=== PATIENT | female | born 1970 | race Caucasian/White ===

== ENCOUNTER → 2017-08-16 | Outpatient (CLI) | payer BC, OTHER, SELFPAY | PROVIDERS: Visit Provider Physician Assistant | DX: L40.0 Psoriasis vulgaris (principal); Z79.899 Other long term (current) drug therapy | CPT/HCPCS: 36415; 80053; 85025 ==

== ENCOUNTER → 2017-08-20 16:43 | Outpatient (CLI) | payer BC, OTHER, SELFPAY | PROVIDERS: PCP Physician Assistant; Visit Provider Physician Assistant | DX: L40.0 Psoriasis vulgaris (principal); Z79.899 Other long term (current) drug therapy ==

== ENCOUNTER → 2017-09-05 15:04 | Outpatient (CLI) | payer BC, SELFPAY ==
--- NOTE | 2017-09-05 | XR_ITS ---
XR ankle LT min 3V HISTORY: ITS.REASON: INJURY LEFT FOOT,ATTN ALONG LEFT ACHILLES TENDON ORDERING PHYSICIAN: NAEEM Woody PATIENT AGE: 46 years COMPARISON: None FINDINGS: No fracture or dislocation. No lytic or blastic change. There is normal mineralization.. The joint spaces are well-preserved. No significant degenerative/arthritic changes. No erosive changes evident. There is a small calcaneal spur. Minimal calcification is present along the plantar surface of the calcaneus unchanged. Enthesophyte is noted at the Achilles insertion. Kager fat pad is preserved IMPRESSION: No acute finding. No change from 8 8 17
--- NOTE | 2017-09-05 15:12 | XR_ITS ---
XR foot LT min 3V HISTORY: Pain following injury ITS.REASON: INJURY OF LEFT FOOT,ATTN LEFT ACHILLES TENDON ORDERING PHYSICIAN: NAEEM Woody PATIENT AGE: 46 years COMPARISON: 03/26/2017 FINDINGS: No fracture or dislocation. No lytic or blastic change. There is normal mineralization.. Minimal hallux valgus. Separate calcific density is present at the base of the fifth metatarsal similar to the previous exam consistent with an accessory center of ossification. Calcaneal spur is present and there is an enthesophyte at the Achilles insertion. The increased density of the Achilles tendon does appear intact. Achilles tendon may be better evaluated with MRI of clinically desired. IMPRESSION: No change with no acute finding
== END ==
PROVIDERS: PCP Physician Assistant; Visit Provider Physician Assistant
DX: S99.912A Unspecified injury of left ankle, initial encounter (principal); S99.922A Unspecified injury of left foot, initial encounter
CPT/HCPCS: 73610; 73630

== ENCOUNTER → 2017-09-18 08:30 | Outpatient (CLI) | payer BC, SELFPAY ==
--- NOTE | 2017-09-18 08:34 | MR_ITS ---
MR ankle LT wo/w con CLINICAL INDICATION: Left ankle pain mainly posterior right Achilles region, recent injury with pain and swelling ORDERING PHYSICIAN: Na Welsh DPM PATIENT AGE: 46 years COMPARISON: Radiograph of 09/05/2017 FINDINGS: There is diffuse edema about the ankle joint anteriorly, medially, and laterally. There is diffuse contrast enhancement of the soft tissues medially, anteriorly, and laterally. No obvious fracture is apparent. There is slight increase T2 signal within the neck of the talus suggesting underlying bone bruise/contusion without obvious fracture. There are mild hypertrophic changes of the distal aspect of the talus medially at the talonavicular joint. The anterior tibiofibular appears discontinuous along the tibial aspect and may be at least partially foreign. The posterior tibiofibular ligament does appear intact. The anterior talofibular ligament is also discontinuous at the fibular region consistent with at least partial tear of the deltoid ligament appears intact. The tendons about the ankle also appear intact. The Achilles tendon has an unremarkable appearance. There is a moderate amount of fluid about the ankle joint both anteriorly and posteriorly. There is fluid also along the medial aspect of the foot at the plantar arch region medially. IMPRESSION: 1. At least partial tear of the anterior tibiofibular and anterior talofibular ligaments. 2. Moderate amount of soft tissue edema both medial and lateral ankle region. This does show some enhancement probably related to inflammatory change. Underlying cellulitis is an additional consideration. 3. Moderate-sized ankle joint effusion with fluid also present along the medial plantar region. 4. Bone bruise of the neck of the talus
== END ==
PROVIDERS: PCP Physician Assistant; Visit Provider Podiatrist
DX: M76.62 Achilles tendinitis, left leg (principal)
CPT/HCPCS: 73223; A9576

== ENCOUNTER → 2017-10-07 12:45 | Outpatient (POV) | payer BC, SELFPAY | PROVIDERS: PCP Physician Assistant; Visit Provider Physician Assistant | DX: Z00.00 Encounter for general adult medical examination without abnormal findings (principal) ==

== ENCOUNTER → 2017-10-14 12:14 | Outpatient (CLI) | payer BC, SELFPAY ==
--- NOTE | 2017-10-14 12:29 | XR_ITS ---
XR chest 2V HISTORY: ITS.REASON: VAPOR INHALE, ORDERING PHYSICIAN: Na Welsh DPM PATIENT AGE: 46 years COMPARISON: None available FINDINGS: The cardiomediastinal silhouette and pulmonary vascularity are within normal limits. There is an azygos fissure is a normal variant.. Calcified hilar lymph node is present on the right with a calcified granuloma in the anterior clear space. No lobar consolidation or collapse. No acute bony abnormalities. IMPRESSION: No acute finding. Old granulomatous disease
[2017-10-14 13:07] LABS: Basophils # 0.1 K/mm3 (0-0.2); Eosinophils # 0.2 K/mm3 (0.0-0.4); Eosinophils % 2.7 % (0.1-12.0); Hematocrit 44.7 % (37.0-47.0); Hemoglobin 14.4 g/dL (12.2-16.2); Lymphocytes # 2.4 K/mm3 (0.7-4.5); Lymphocytes % 35.5 K/mm3 (10-50); Mean Corpuscular HGB Conc 32.2 g/dL (31.8-35.4); Mean Corpuscular Hemoglobin 28.5 pg (27.0-31.2); Mean Corpuscular Volume 88.4 fl (81-99); Mean Platelet Volume 7.5 fl (7.4-10.4); Monocytes # 0.4 K/mm3 (0.1-1.0); Monocytes % 5.3 % (1.7-9.3); Neutrophils # 3.7 K/mm3 (1.8-7.8); Neutrophils % 55.5 % (37.0-80.0); Platelet Count 270 K/mm3 (142-424); Red Blood Count 5.06 M/mm3 (4.20-5.40); Red Cell Distribution Width 13.8 % (11.5-17.5); White Blood Count 6.7 K/mm3 (4.8-10.8)
[2017-10-14 13:17] LABS: INR 0.93 (0.9-1.1)
[2017-10-14 14:28] LABS: HCG Qualitative, Serum Negative (Negative)
[2017-10-14 14:43] LABS: Alanine Aminotransferase 38 U/L (12-78); Albumin Level 4.1 gm/dL (3.4-5.0); Albumin/Globulin Ratio 1.4 (1.1-1.8); Alkaline Phosphatase 59 U/L (46-116); Anion Gap 12.4 mEq/L (5-15); Aspartate Amino Transferase 14 U/L (15-37); Bilirubin,Total 0.8 mg/dL (0.2-1.0); Blood Urea Nitrogen 12 mg/dL (7-18); Calcium 8.8 mg/dL (8.5-10.1); Carbon Dioxide 27 mmol/L (21.0-32.0); Chloride 104 mmol/L (98-107); Creatinine,Serum 0.67 mg/dL (0.55-1.02); Estimated Glomerular Filt Rate 96 ml/min (>60); GFR (African American) 116 ML/MIN (>60); Globulin 2.9 gm/dl (1.3-3.2); Glucose 86 mg/dL (74-106); Potassium 4.4 mmoL/L (3.5-5.1); Sodium 139 mmol/L (136-145)
== END ==
PROVIDERS: Visit Provider Podiatrist
DX: S99.912D Unspecified injury of left ankle, subsequent encounter (principal); S93.432D Sprain of tibiofibular ligament of left ankle, subsequent encounter
CPT/HCPCS: 36415; 71046; 80053; 84703; 85025; 85610; 93005

== ENCOUNTER 2017-10-16 08:00 | Day surgery (SDC) | payer BC, SELFPAY ==
[2017-10-15 13:15] VITALS: BMI 36.3
[2017-10-16] VITALS (11 sets, daily range): BP systolic 119–143; BP diastolic 68–91; PULSE 62–83; RESP 12–18; TEMP 36.1–43; O2SAT 94–99
--- NOTE | 2017-10-16 09:10 | HMH.ANESCL ---
[facility] Anesthesia Checklist - Patient Identification Patient Identification: Arm Band - Structural Data Admitted From: Home Planned Operative Procedure/s: left ankle arthroscopy Consent for Planned Operative Procedure(s) Verified: Yes Verified Documents: Surgical Consent, History and Physical - NPO Status Verified Time NPO: 00:00 - Additional verifications Anesthesia Reactions: No - Airway Assessment C-Spine Mobility Assessed: Yes (mp2) TMJ Mobility Assessed: Yes Dentition: Good Dentition - Neurological Assessment Level of Consciousness: Awake, Alert - Anesthesia Plan Anesthesia Risk discussed: Yes Anesthesia Plan: Verified ASA Class: II Anesthesia Type: General (with fem/sciatic block) [facility] Anesthesia HX I have reviewed the patient's past medical history: Yes Medical History: Reports:: Cancer (cervical ca) Denies:: Asthma, Chronic Obstructive Pulmonary Disease (COPD), Diabetes Mellitus Type 1, Diabetes Mellitus Type 2, Gall Bladder Disease, Gastroesophageal Reflux Disease(GERD), Hyperlipidemia, Hypertension, MRSA, Renal Disease, Renal Insufficiency, Seizures Other Medical History: Reports: Arthritis. Denies: Blood Transfusion Reaction, Hypothyroidism, Thyroid Disease Laterality Cases: Left: Carpal Tunnel Release, Bilateral: Myringotomy (Ear Tubes) Other Surgeries: Yes: , Hysterectomy-Total, Other Amputation: No Fractures: No *Family Hx:: Diabetes, Hypertension, Hyperlipidemia
--- NOTE | 2017-10-16 13:32 | XR_ITS ---
XR ankle LT 2V HISTORY: Follow-up surgery ITS.REASON: LT ANKLE ORDERING PHYSICIAN: Na Welsh DPM PATIENT AGE: 46 years COMPARISON: None Fluoroscopy time: 2 minutes and 8 seconds FINDINGS: C-arm utilized for fixation of the distal tibia and fibula with overlying bone plate on the lateral aspect of the fibula. Good alignment. IMPRESSION: Good alignment distal tib-fib status post fixation
--- NOTE | 2017-10-16 14:00 | XR_ITS ---
XR ankle LT min 3V HISTORY: Follow-up surgery ITS.REASON: s/p ankle surgery ORDERING PHYSICIAN: Na Welsh DPM PATIENT AGE: 46 years COMPARISON: 09/06/2017 FINDINGS: 3 views are obtained through a splint show interval placement of the bone plate along the lateral aspect of the distal fibula with small channels extending from the bone plate medially to the medial aspect of the tibia with a button along the medial aspect of the tibia and one along the medial aspect of the distal fibula. There is good alignment. No mortise widening. IMPRESSION: Status placement of a bone plate with syndesmotic repair of the distal tib-fib with good alignment and no widening of the ankle mortise
--- NOTE | 2017-10-16 14:03 | P.PN_ITS ---
[facility] Anesthesia Record Part I Intake, IV Amount: 2,300 Estimated blood loss (mL): 25 Urine output (mL): 450 Blood Pressure: 143/91 SaO2: 95 Pulse Rate: 81 Respiratory Rate: 12 Temperature: 98.8 F Patient is:: Awake, Stable Stable to PACU at:: 13:55
--- NOTE | 2017-10-16 14:03 | HMH.ANESII ---
[facility] Anesthesia Record Part II Discharge Time: 14:25 Destination: [facility] PACU nurse assessment reviewed?: Yes Patient Condition:: Good Anesthesia Complications:: None
--- NOTE | 2017-10-16 14:04 | P.PN_ITS ---
[facility] Anesthesia Record Part II Discharge Time: 14:25 Destination: [facility] PACU nurse assessment reviewed?: Yes Patient Condition:: Good Anesthesia Complications:: None
--- NOTE | 2017-10-16 14:29 | HMH.OPNOTE ---
Date of procedure: 10/16/17 Pre-op Diagnosis:: Left ankle synovitis Left syndesmotic ligament tear Left anterior talofibular ligament tear Left chronic ankle instability Post-op Diagnosis:: Left ankle synovitis Left syndesmotic ligament tear Left anterior talofibular ligament tear Left chronic ankle instability Left STJ synovitis Post-op diagnosis:: same Procedure performed:: Left ankle arthroscopy Left ankle synovectomy Left open reduction internal fixation syndesmosis (syndesmotic repair) Left modified Brostr?m lateral ankle ligament repair/stabilization Left subtalar joint synovectomy Surgeon:: Na Welsh DPM DAIRY CATTLE FARMER:: Ton Brasher Anesthesia: GETA Estimated blood loss (mL): 30 Clinical Note:: Ms. Guardado is a 46 y/o female who presents for follow up of left ankle and leg pain. She states that she fell 09/02/[address] in the [address] lot on her way to work. She has been immobilized in a below knee cast and still having pain. The pain is to the left ankle and distal leg, from where she fell on ice. She had an MRI 09/18/17 who showed tear of the anterior tibiofibular ligament and ATFL, edema to medial and lateral demarcus, joint effusion and talar neck bone bruise. Patient's symptoms have no improved. Conservative treatment discussed but has failed. She has been immobilized in a BK fiberglass cast, fracture boot, NSAIDs, ice, elevation, rest and failed PT. We discussed surgery. All risks and benefits were discussed including but not limited to: damage to blood vessels and nerves, bleeding, infection, wound complications, delayed or non-union of bone, fracture of bone, post-traumatic arthritis, need for further surgery, need for removal of implant, prolonged swelling of the extremity, prolonged pain, RSD/CRPs, DVT, and anesthetic complications. No guarantees were given. All questions fully answered. The patient verbalized understanding and agreed to proceed with surgery. Consent was obtained. Necessary labs and pre-op testing ordered: CBC, CMP, PT/INR, EKG, CXR and within surgical normal limits. Pt was given a Rx for [place] 7.5/325 # 30, Zofran, Motrin, and Lovenox # 20. She has fracture boot and rolling knee scooter. We discussed smoking in detail. She does not smoke cigarettes but does state she vapes on occasion. I explained that she should quit due to increase potential complications of soft tissue and bone healing. Patient verbalized understanding. She has medical clearance from Dr. Monge. Operative findings:: Left ankle synovitis with small osteochondral defect, cartilage scuff. The talar cartilage was all intact. There was synovitis noted to both the ankle and the subtalar joint with hemorrhagic fluid lining the peroneal tendons. Peroneal tendons were intact with no tears noted. Attenuation noted to the ATFL and CFL Operative note:: On this date and time patient was deemed an appropriate surgical candidate. With informed consent signed, the patient was given a pre-op left leg regional block by anesthesia. Patient was taken to the operating theater. The patient was positioned supine. General anesthesia was induced. Tourniquet was applied to the left thigh. Left Ankle Arthroscopy: Attention was directed to the anterior left ankle where the DP artery, saphenous vein, tibialis anterior tendon, superficial peroneal nerve and peroneus tertius were mapped out. 10cc of 2% lidocaine with epi was injected into the ankle joint. The left lower extremity was prepped and draped in the normal sterile fashion. Attention was to ankle, were 10 cc of sterile saline was infused to distend the joint. The tourniquet was inflated at 250 mmHg. The ankle was distracted. An 18 gauge needle was used to beck anteriomedial portal. An 11 blade was used to make a skin incision medial to the TA tendon. Blunt dissection was carried down to capsule. An arthroscopic cannula was then inserted to the level of the bone with care taken to avoid the saphenous vein and nerve. The camera was
--- NOTE | 2017-10-16 14:36 | P.OP_ITS ---
Date of procedure: 10/16/17 Pre-op Diagnosis:: Left ankle synovitis Left syndesmotic ligament tear Left anterior talofibular ligament tear Left chronic ankle instability Post-op Diagnosis:: Left ankle synovitis Left syndesmotic ligament tear Left anterior talofibular ligament tear Left chronic ankle instability Left STJ synovitis Post-op diagnosis:: same Procedure performed:: Left ankle arthroscopy Left ankle synovectomy Left open reduction internal fixation syndesmosis (syndesmotic repair) Left modified Brostr?m lateral ankle ligament repair/stabilization Left subtalar joint synovectomy Surgeon:: Na Welsh DPM STRAIGHT EDGER:: Ton Brasher Anesthesia: GETA Estimated blood loss (mL): 30 Clinical Note:: Ms. Guardado is a 46 y/o female who presents for follow up of left ankle and leg pain. She states that she fell 09/02/17 in the parking lot on her way to work. She has been immobilized in a below knee cast and still having pain. The pain is to the left ankle and distal leg, from where she fell on ice. She had an MRI 09/18/17 who showed tear of the anterior tibiofibular ligament and ATFL, edema to medial and lateral demarcus, joint effusion and talar neck bone bruise. Patient's symptoms have no improved. Conservative treatment discussed but has failed. She has been immobilized in a BK fiberglass cast, fracture boot, NSAIDs , ice, elevation, rest and failed PT. We discussed surgery. All risks and benefits were discussed including but not limited to: damage to blood vessels and nerves, bleeding, infection, wound complications, delayed or non-union of bone, fracture of bone, post-traumatic arthritis, need for further surgery, need for removal of implant, prolonged swelling of the extremity, prolonged pain , RSD/CRPs, DVT, and anesthetic complications. No guarantees were given. All questions fully answered. The patient verbalized understanding and agreed to proceed with surgery. Consent was obtained. Necessary labs and pre-op testing ordered: CBC, CMP, PT/INR, EKG, CXR and within surgical normal limits. Pt was given a Rx for [employer] 7.5/325 # 30, Zofran , Motrin, and Lovenox # 20. She has fracture boot and rolling knee scooter. We discussed smoking in detail. She does not smoke cigarettes but does state she vapes on occasion. I explained that she should quit due to increase potential complications of soft tissue and bone healing. Patient verbalized understanding. She has medical clearance from Dr. Monge. Operative findings:: Left ankle synovitis with small osteochondral defect, cartilage scuff. The talar cartilage was all intact. There was synovitis noted to both the ankle and the subtalar joint with hemorrhagic fluid lining the peroneal tendons. Peroneal tendons were intact with no tears noted. Attenuation noted to the ATFL and CFL Operative note:: On this date and time patient was deemed an appropriate surgical candidate. With informed consent signed, the patient was given a pre-op left leg regional block by anesthesia. Patient was taken to the operating theater. The patient was positioned supine. General anesthesia was induced. Tourniquet was applied to the left thigh. Left Ankle Arthroscopy: Attention was directed to the anterior left ankle where the DP artery, saphenous vein, tibialis anterior tendon, superficial peroneal nerve and peroneus tertius were mapped out. 10cc of 2% lidocaine with epi was injected into the ankle joint. The left lower extremity was prepped and draped in the normal sterile fashion. Attention was to ankle, were 10 cc of sterile saline was infused to distend the joint. The tourniquet was inflated at 250 mmHg. The ankle was distracted. An 18 gauge needle was used to beck anteriomedial por
--- NOTE | 2017-10-16 15:42 | SUR.OPER ---
Addendum entered by Carissa White RN 10/16/17 15:54: Original Note: 1148-left ankle arthoscopy procedure ended at this time, all counts verified and correct prior to beginning additional procedures 1225-family updated per RYLEE Espinosa [id number] updated per RYLEE Long
--- NOTE | 2017-10-16 16:07 | PC.NURSE ---
1424-detailed report given to RYLEE Chatman 1425-Pt transported to post op via stretcher w/rails up and left in care of RYLEE Chatman w/bed locked in lowest position. VSS. Pt stable.
[2017-10-16 18:02] LABS: Microscopic,Cath URINE MICROSCOPIC (MICROSCOPIC)
[2017-10-16 18:03] LABS: Appearance,Urine/Cath CLEAR (Clear); Bilirubin,Cath Negative (Negative); Blood, Urine/Cath Negative (Negative); Color,Urine/Cath YELLOW (Yellow); Glucose,Urine/Cath (UA) Negative (Negative); Ketones,Urine/Cath Negative (Negative); Leukocyte Esterase,Cath Negative (Negative); Nitrate,Cath Negative (Negative); Protein,Urine/Cath Negative (Negative); Specific Gravity, Urine/Cath 1.015 (1.005-1.030); Urobilinogen,Cath 0.2 EU/dl (0.2)
== END 2017-10-16 15:25 | disposition home or self-care (01) ==
LOC: OR 08:02
PROVIDERS: PCP Physician Assistant; Visit Provider Podiatrist
PROC: (CPT 29898; principal; 2017-10-16 09:45)
DX: S93.432A Sprain of tibiofibular ligament of left ankle, initial encounter (principal); Z72.0 Tobacco use; W18.30XA Fall on same level, unspecified, initial encounter; M25.372 Other instability, left ankle; S93.492A Sprain of other ligament of left ankle, initial encounter
CPT/HCPCS: 29898; 27829; 27625; 73600; 73610; 76001; 81001; C1713; C1762; C1776; J2405

== ENCOUNTER → 2017-10-29 14:21 | Outpatient (CLI) | payer BC, SELFPAY ==
--- NOTE | 2017-10-29 14:22 | XR_ITS ---
XR ankle LT min 3V HISTORY: Follow-up fixation/ligamentous repair ORDERING PHYSICIAN: Na Welsh DPM PATIENT AGE: 46 years COMPARISON: 10/16/2017 FINDINGS: Study is obtained through a splint is posterior. There is been no change in the bone plate along the distal fibula with 2 radio opaque buttons one along the medial aspect of the distal tibia along the medial aspect distal fibula. There remains good alignment with preservation of the ankle mortise. IMPRESSION: No change status post ORIF distal tib-fib
== END ==
PROVIDERS: Visit Provider Podiatrist
DX: Z98.890 Other specified postprocedural states (principal)
CPT/HCPCS: 73610

== ENCOUNTER → 2017-11-26 08:59 | Outpatient (CLI) | payer BC, SELFPAY ==
--- NOTE | 2017-11-26 08:59 | XR_ITS ---
XR ankle wt bearing LT min 3V HISTORY: Follow-up of ankle surgery, ligamentous repair ORDERING PHYSICIAN: Na Welsh DPM PATIENT AGE: 46 years COMPARISON: 10/29/2017 FINDINGS: The posterior splint has been removed. There is been no change in the bone plate along the distal fibula with 2 radio opaque buttons one along the medial aspect of the distal tibia along the medial aspect distal fibula. There remains good alignment with preservation of the ankle mortise. IMPRESSION: No change status post ORIF distal tib-fib
== END ==
PROVIDERS: Visit Provider Podiatrist
DX: Z98.890 Other specified postprocedural states (principal)
CPT/HCPCS: 73610

== ENCOUNTER → 2017-12-30 10:45 | Outpatient (POV) | payer BC, SELFPAY ==
[2017-12-30 10:51] VITALS: BP 148/87; PULSE 77; RESP 18; TEMP 36.7; O2SAT 98
--- NOTE | 2017-12-31 08:49 | HMH.PMCON ---
Assessment and Plan (1) CRPS (complex regional pain syndrome type I) Current visit: Yes Status: Chronic Qualifiers: Complex regional pain syndrome affected site: lower extremity Laterality: left Qualified Code(s): G90.522 - Complex regional pain syndrome I of left lower limb Category: Medical Code(s): G90.50 - Complex regional pain syndrome I, unspecified - Assessment and plan all Dx Assessment and Plan for all problems:: Since the patient had her surgery as recently as September she is not had enough recovery time to pursue a DRG stimulator at this point. We will start her on gabapentin 100 mg 1 p.o. twice daily. Patient is to start taking the medication at bedtime and increase as tolerated. I will see this patient back in a month we will reassess her symptoms. After 6 months we she will be a candidate for a DRG stimulator. I believe that this would be very beneficial for her. I gave the patient information on this therapy. I encouraged her to write down her questions so we could discuss it at her next visit This note was dictated using voice recognition software and may contain errors or omissions HPI - Data of Consult Consult date: 12/30/17 Requesting Physician: Alyssa Hyatt APRN Primary Care Provider: NAEEM Woody Family Provider: Referral Provider, MD - Consult Narrative Reason for consult: Left ankle pain status post surgery History of present illness: Ms. Guardado is a 47 year old female who presents today for consultation in regards to her left leg and ankle pain. Patient had surgery September 23, 2017. After this she had increasing pain in her left ankle and foot. It is now radiating up into her knee. Patient's, color changes, temperature changes of the affected foot. Patient's tried and failed physical therapy. Patient has tried pain medication in the past however it was not relieving of her pain pills and she had side effects. Patient has not tried gabapentin. Patient states she has numbness and tingling in the left ankle and leg at all times. Patient has tried ibuprofen. Patient is here today and if she is a DRG or neurostimulator candidate. Patient rates her pain a 6 out of 10 today. She states that this is her baseline. Patient also has a burning sensation in the bottom of her foot. CC: Alyssa Hyatt APRN [facility] History I have reviewed the patient's past medical history: Yes Medical History: Reports:: Cancer Denies:: Asthma, Chronic Obstructive Pulmonary Disease (COPD), Diabetes Mellitus Type 1, Diabetes Mellitus Type 2, Gall Bladder Disease, Gastroesophageal Reflux Disease(GERD), Hyperlipidemia, Hypertension, MRSA, Renal Disease, Renal Insufficiency, Seizures Other Medical History: Reports: Arthritis. Denies: Blood Transfusion Reaction, Hypothyroidism, Thyroid Disease Laterality Cases: Left: Carpal Tunnel Release Other Surgeries: Yes: , Hysterectomy-Total, Other Amputation: No Fractures: No - *Social History Smoking Status: Current every day smoker Tobacco Type: e-cigarettes # Packs/Day (cigarettes): 0 #Yrs smoked (if former smoker): 25 Alcohol Intake: never Alcohol Intake Frequency:: other Substance Use Type: denies use Occupational Status: employed Housing: house Household Members: spouse - Psychiatric History Expresses thoughts of harming self/others: None Suicide Plan Description: No Plan *Family Hx:: Diabetes, Hypertension, Hyperlipidemia Review of Systems - Review of Systems ROS General: no recent weight change, no fever, no sleep disturbances Respiratory: no cough, no shortness of air, no recurring pulmonary infections Cardiovascular/Peripheral Vascular: No chest pain, No palpitations, no edema, no shortness of breath. Gastrointestinal: no incontinence, normal bowel movements reported Genitourinary: no incontinence Musculoskeletal: Left foot pain, left ankle pain, left leg pain Psychiatric: normal mood/ affect Neurologic
--- NOTE | 2017-12-31 08:52 | P.CONS_ITS ---
Assessment and Plan (1) CRPS (complex regional pain syndrome type I) Current visit: Yes Status: Chronic Qualifiers: Complex regional pain syndrome affected site: lower extremity Laterality: left Qualified Code(s): G90.522 - Complex regional pain syndrome I of left lower limb Category: Medical Code(s): G90.50 - Complex regional pain syndrome I, unspecified - Assessment and plan all Dx Assessment and Plan for all problems:: Since the patient had her surgery as recently as September she is not had enough recovery time to pursue a DRG stimulator at this point. We will start her on gabapentin 100 mg 1 p.o. twice daily. Patient is to start taking the medication at bedtime and increase as tolerated. I will see this patient back in a month we will reassess her symptoms. After 6 months we she will be a candidate for a DRG stimulator. I believe that this would be very beneficial for her. I gave the patient information on this therapy. I encouraged her to write down her questions so we could discuss it at her next visit This note was dictated using voice recognition software and may contain errors or omissions HPI - Data of Consult Consult date: 12/30/17 Requesting Physician: Alyssa Hyatt APRN Primary Care Provider: NAEEM Woody Family Provider: Referral Provider, MD - Consult Narrative Reason for consult: Left ankle pain status post surgery History of present illness: Ms. Guardado is a 47 year old female who presents today for consultation in regards to her left leg and ankle pain. Patient had surgery September 23, 2017. After this she had increasing pain in her left ankle and foot. It is now radiating up into her knee. Patient's, color changes, temperature changes of the affected foot. Patient's tried and failed physical therapy. Patient has tried pain medication in the past however it was not relieving of her pain pills and she had side effects. Patient has not tried gabapentin. Patient states she has numbness and tingling in the left ankle and leg at all times. Patient has tried ibuprofen. Patient is here today and if she is a DRG or neurostimulator candidate. Patient rates her pain a 6 out of 10 today. She states that this is her baseline. Patient also has a burning sensation in the bottom of her foot. CC: Alyssa Hyatt APRN [facility] History I have reviewed the patient's past medical history: Yes Medical History: Reports:: Cancer Denies:: Asthma, Chronic Obstructive Pulmonary Disease (COPD), Diabetes Mellitus Type 1, Diabetes Mellitus Type 2, Gall Bladder Disease, Gastroesophageal Reflux Disease(GERD), Hyperlipidemia, Hypertension, MRSA, Renal Disease, Renal Insufficiency, Seizures Other Medical History: Reports: Arthritis. Denies: Blood Transfusion Reaction, Hypothyroidism, Thyroid Disease Laterality Cases: Left: Carpal Tunnel Release Other Surgeries: Yes: , Hysterectomy-Total, Other Amputation: No Fractures: No - *Social History Smoking Status: Current every day smoker Tobacco Type: e-cigarettes # Packs/Day (cigarettes): 0 #Yrs smoked (if former smoker): 25 Alcohol Intake: never Alcohol Intake Frequency:: other Substance Use Type: denies use Occupational Status: employed Housing: house Household Members: spouse - Psychiatric History Expresses thoughts of harming self/others: None Suicide Plan Description: No Plan *Family Hx:: Diabetes, Hypertension, Hyperlipidemia Review of Systems - Review of Systems ROS General: no recent weight change, no fever, no sleep disturbances Respiratory: no co
== END ==
PROVIDERS: PCP Physician Assistant; Visit Provider Clinical Nurse Specialist Family Health
DX: G90.522 Complex regional pain syndrome I of left lower limb (principal); G90.50 Complex regional pain syndrome I, unspecified
CPT/HCPCS: 99202

== ENCOUNTER → 2018-01-14 08:39 | Outpatient (CLI) | payer BC, SELFPAY ==
--- NOTE | 2018-01-14 08:43 | XR_ITS ---
XR ankle wt bearing LT min 3V HISTORY: Follow-up surgery ITS.REASON: Post-op Views ORDERING PHYSICIAN: Na Welsh DPM PATIENT AGE: 47 years Comparison: None FINDINGS: There is been no change in the bone plate along the distal fibula with 2 radio opaque buttons one along the medial aspect of the distal tibia along the medial aspect distal fibula. There remains good alignment with preservation of the ankle mortise. There are mild hypertrophic changes along the distal aspect of the medial malleolus region and along the dorsal talonavicular area. Calcaneal spurs present IMPRESSION: No change status post ORIF distal tib-fib
== END ==
PROVIDERS: Visit Provider Podiatrist
DX: Z98.890 Other specified postprocedural states (principal)
CPT/HCPCS: 73610

== ENCOUNTER → 2018-01-14 09:55 | Outpatient (POV) | payer BC, SELFPAY ==
[2018-01-14 10:16] VITALS: BP 132/86; PULSE 86; RESP 18; O2SAT 99; BMI 33.4
--- NOTE | 2018-01-14 10:29 | HMH.PAINSOAP ---
[facility] Pain Management SOAP Note Subjective:: Patient is a pleasant 47-year-old white female who presents today for follow-up after starting gabapentin. Patient had surgery September 23 2017 on her left ankle and foot. Patient now has pain in her left ankle radiating up into her knee and down into her foot. Patient has color changes, temperature changes of the affected foot. Patient is finishing up her physical therapy. Patient is started on gabapentin 100 mg 1 p.o. twice daily. Patient had no side effects to this medication she would like to increase it. And we would like to work towards a DRG stimulator. Patient reviewed the information I gave her and we addressed all of her questions. She rates her pain a 5 out of 10 today states that it is constant, burning. ROS General: no recent weight change, no fever, no sleep disturbances Respiratory: no cough, no shortness of air, no recurring pulmonary infections Cardiovascular/Peripheral Vascular: No chest pain, No palpitations, no edema, no shortness of breath. Gastrointestinal: no incontinence, normal bowel movements reported Genitourinary: no incontinence Musculoskeletal: Foot pain left side Psychiatric: normal mood/ affect Neurological: [denies weakness in extremities], [denies balance issues] Objective:: Physical Exam General: Alert and oriented x3, no acute distress, pleasant and cooperative, [on room air] Lungs: Resps E/U, Symmetrical chest expansion, Eyes: PERRL Musculoskeletal: Range of motion left foot somewhat guarded secondary to pain, deep tendon reflexes normal, strength in upper and lower extremities [5/5], [abnormal gait noted] Skin: Left foot is swollen, cool to touch, noted purple color Neurological: speech clear, silk folder equal, no gross sensory deficits Assessment:: CRPS type I Plan:: We will start the process of getting her approved for a DRG trial we will wait 6 months and plan on doing this in March. Patient is to continue and finish her physical therapy. Patient will have her gabapentin increased to 300 mg 1 p.o. 3 times daily. If she does well with this after 1 month with no side effects we will increase that to 4 times a day. Will send her for psychological evaluation. Follow-up with this patient after her trial. This note was dictated using voice recognition software and may contain errors or omissions
--- NOTE | 2018-01-14 10:33 | P.CONS_ITS ---
[facility] Pain Management SOAP Note Subjective:: Patient is a pleasant 47-year-old white female who presents today for follow-up after starting gabapentin. Patient had surgery September 23 2017 on her left ankle and foot. Patient now has pain in her left ankle radiating up into her knee and down into her foot. Patient has color changes, temperature changes of the affected foot. Patient is finishing up her physical therapy. Patient is started on gabapentin 100 mg 1 p.o. twice daily. Patient had no side effects to this medication she would like to increase it. And we would like to work towards a DRG stimulator. Patient reviewed the information I gave her and we addressed all of her questions. She rates her pain a 5 out of 10 today states that it is constant, burning. ROS General: no recent weight change, no fever, no sleep disturbances Respiratory: no cough, no shortness of air, no recurring pulmonary infections Cardiovascular/Peripheral Vascular: No chest pain, No palpitations, no edema, no shortness of breath. Gastrointestinal: no incontinence, normal bowel movements reported Genitourinary: no incontinence Musculoskeletal: Foot pain left side Psychiatric: normal mood/ affect Neurological: [denies weakness in extremities], [denies balance issues] Objective:: Physical Exam General: Alert and oriented x3, no acute distress, pleasant and cooperative, [ on room air] Lungs: Resps E/U, Symmetrical chest expansion, Eyes: PERRL Musculoskeletal: Range of motion left foot somewhat guarded secondary to pain, deep tendon reflexes normal, strength in upper and lower extremities [5/5], [ abnormal gait noted] Skin: Left foot is swollen, cool to touch, noted purple color Neurological: speech clear, retail specialist equal, no gross sensory deficits Assessment:: CRPS type I Plan:: We will start the process of getting her approved for a DRG trial we will wait 6 months and plan on doing this in March. Patient is to continue and finish her physical therapy. Patient will have her gabapentin increased to 300 mg 1 p.o. 3 times daily. If she does well with this after 1 month with no side effects we will increase that to 4 times a day. Will send her for psychological evaluation. Follow-up with this patient after her trial. This note was dictated using voice recognition software and may contain errors or omissions
== END ==
PROVIDERS: Visit Provider Clinical Nurse Specialist Family Health
DX: G90.522 Complex regional pain syndrome I of left lower limb (principal)
CPT/HCPCS: 99212

== ENCOUNTER → 2018-01-28 08:56 | Outpatient (POV) | payer BC, SELFPAY ==
[2018-01-28 09:10] VITALS: BP 132/83; PULSE 76; RESP 18; O2SAT 98; BMI 35.5
--- NOTE | 2018-01-28 09:29 | HMH.PAINSOAP ---
[facility] Pain Management SOAP Note Subjective:: Patient is a pleasant 47-year-old white female who presents today for follow-up after increasing her gabapentin. Patient is getting no relief from her gabapentin medication. Patient states she is taken Lyrica in the past with good success. We will try to Lyrica 75 mg 1 p.o. twice daily. We will give her 2 week trial to help determine if this is helpful for her. We will also begin the process of getting her to DRG trial. Patient has her psychological evaluation on . Patient rates her pain a 6 out of 10. Patient is walking without her scooter today. Patient had left ankle surgery and now has pain radiating up into her knee and down into her foot. Patient has color changes, temperature changes of the affected foot. Patient also has swelling at times. Patient is finished with her physical therapy. ROS General: no recent weight change, no fever, no sleep disturbances Respiratory: no cough, no shortness of air, no recurring pulmonary infections Cardiovascular/Peripheral Vascular: No chest pain, No palpitations, no edema, no shortness of breath. Gastrointestinal: no incontinence, normal bowel movements reported Genitourinary: no incontinence Musculoskeletal: Foot pain left side Psychiatric: normal mood/ affect Neurological: [denies weakness in extremities], [denies balance issues] Objective:: Physical Exam General: Alert and oriented x3, no acute distress, pleasant and cooperative, [on room air] Lungs: Resps E/U, Symmetrical chest expansion, Eyes: PERRL Musculoskeletal: Range of motion left foot somewhat guarded secondary to pain, deep tendon reflexes normal, strength in upper and lower extremities [5/5], [abnormal gait noted] Neurological: speech clear, pulp drier equal, no gross sensory deficits Assessment:: CRPS type I Plan:: We will work towards getting insurance approval for DRG trial. We will call in Lyrica 75 mg 1 p.o. twice daily. We will give her 2 week supply to see if this is beneficial. We will follow-up with the patient after psychological evaluation or after her DRG trial. This note was dictated using voice recognition software and may contain errors or omissions
--- NOTE | 2018-01-28 09:39 | P.CONS_ITS ---
[facility] Pain Management SOAP Note Subjective:: Patient is a pleasant 47-year-old white female who presents today for follow-up after increasing her gabapentin. Patient is getting no relief from her gabapentin medication. Patient states she is taken Lyrica in the past with good success. We will try to Lyrica 75 mg 1 p.o. twice daily. We will give her 2 week trial to help determine if this is helpful for her. We will also begin the process of getting her to DRG trial. Patient has her psychological evaluation on . Patient rates her pain a 6 out of 10. Patient is walking without her scooter today. Patient had left ankle surgery and now has pain radiating up into her knee and down into her foot. Patient has color changes, temperature changes of the affected foot. Patient also has swelling at times. Patient is finished with her physical therapy. ROS General: no recent weight change, no fever, no sleep disturbances Respiratory: no cough, no shortness of air, no recurring pulmonary infections Cardiovascular/Peripheral Vascular: No chest pain, No palpitations, no edema, no shortness of breath. Gastrointestinal: no incontinence, normal bowel movements reported Genitourinary: no incontinence Musculoskeletal: Foot pain left side Psychiatric: normal mood/ affect Neurological: [denies weakness in extremities], [denies balance issues] Objective:: Physical Exam General: Alert and oriented x3, no acute distress, pleasant and cooperative, [ on room air] Lungs: Resps E/U, Symmetrical chest expansion, Eyes: PERRL Musculoskeletal: Range of motion left foot somewhat guarded secondary to pain, deep tendon reflexes normal, strength in upper and lower extremities [5/5], [ abnormal gait noted] Neurological: speech clear, software development project manager equal, no gross sensory deficits Assessment:: CRPS type I Plan:: We will work towards getting insurance approval for DRG trial. We will call in Lyrica 75 mg 1 p.o. twice daily. We will give her 2 week supply to see if this is beneficial. We will follow-up with the patient after psychological evaluation or after her DRG trial. This note was dictated using voice recognition software and may contain errors or omissions
--- NOTE | 2018-01-28 09:52 | XR_ITS ---
XR knee RT 4V HISTORY: ITS.REASON: RT knee pain ORDERING PHYSICIAN: Alyssa Hyatt PATIENT AGE: 47 years COMPARISON: None FINDINGS: Minor osteoarthritic changes involve all 3 compartments with slight decrease in the joint space medially and at the patellofemoral joint and minimal osteophytes in all 3 compartments. No fracture or dislocation. No lytic or blastic change. There is slight increased density in the suprapatellar region suggesting small effusion IMPRESSION: Mild osteoarthritis of the knee with small knee joint effusion
--- NOTE | 2018-01-28 09:52 | XR_ITS ---
XR knee LT 4V HISTORY: ITS.REASON: LT knee pain ORDERING PHYSICIAN: Alyssa Hyatt PATIENT AGE: 47 years COMPARISON: None FINDINGS: No fracture or dislocation. No lytic or blastic change. Normal mineralization. No significant arthritic changes evident. No other significant findings IMPRESSION: Negative left Knee
--- NOTE | 2018-02-11 14:55 | PC.NURSE ---
faxed refill for LYRICA 75mg bid to [facility] [place]
== END ==
PROVIDERS: PCP Physician Assistant; Referring Provider Orthopaedic Surgery; Visit Provider Clinical Nurse Specialist Family Health
DX: G90.522 Complex regional pain syndrome I of left lower limb (principal)
CPT/HCPCS: 73564; 99212

== ENCOUNTER → 2018-03-05 14:32 | Outpatient (CLI) | payer BC, SELFPAY ==
[2018-03-05 16:12] LABS: Basophils % 0.3 % (0.1-2.0); Eosinophils # 0.2 K/mm3 (0.0-0.4); Eosinophils % 2.8 % (0.1-12.0); Hematocrit 43.4 % (37.0-47.0); Hemoglobin 13.8 g/dL (12.2-16.2); Lymphocytes # 2.6 K/mm3 (0.7-4.5); Lymphocytes % 35.1 K/mm3 (10-50); Mean Corpuscular HGB Conc 31.7 g/dL (31.8-35.4); Mean Corpuscular Hemoglobin 27.9 pg (27.0-31.2); Mean Corpuscular Volume 87.9 fl (81-99); Mean Platelet Volume 7.9 fl (7.4-10.4); Monocytes # 0.3 K/mm3 (0.1-1.0); Monocytes % 3.8 % (1.7-9.3); Neutrophils # 4.2 K/mm3 (1.8-7.8); Platelet Count 316 K/mm3 (142-424); Red Blood Count 4.94 M/mm3 (4.20-5.40); Red Cell Distribution Width 13.7 % (11.5-17.5); White Blood Count 7.3 K/mm3 (4.8-10.8)
[2018-03-05 16:53] LABS: Alanine Aminotransferase 28 U/L (12-78); Albumin/Globulin Ratio 1.3 (1.1-1.8); Alkaline Phosphatase 80 U/L (46-116); Anion Gap 13.9 mEq/L (5-15); Aspartate Amino Transferase 10 U/L (15-37); Bilirubin,Total 0.8 mg/dL (0.2-1.0); Blood Urea Nitrogen 11 mg/dL (7-18); Calcium 8.7 mg/dL (8.5-10.1); Carbon Dioxide 23 mmol/L (21.0-32.0); Chloride 105 mmol/L (98-107); Creatinine,Serum 0.75 mg/dL (0.55-1.02); Estimated Glomerular Filt Rate 84 ml/min (>60); GFR (African American) 101 ML/MIN (>60); Globulin 3.2 gm/dl (1.3-3.2); Glucose 171 mg/dL (74-106); Potassium 3.9 mmoL/L (3.5-5.1); Sodium 138 mmol/L (136-145); Total Protein,Serum 7.2 gm/dL (6.4-8.2)
== END ==
PROVIDERS: Visit Provider Physician Assistant
DX: L40.0 Psoriasis vulgaris (principal); Z79.899 Other long term (current) drug therapy
CPT/HCPCS: 36415; 80053; 85025

== ENCOUNTER → 2018-03-18 17:06 | Outpatient (REF) | payer BC, SELFPAY | LOC: LAB 17:06 | PROVIDERS: Visit Provider Podiatrist | DX: T81.4XXA Infection following a procedure, initial encounter (principal) | CPT/HCPCS: 87070; 87077; 87186; 87205 ==

== ENCOUNTER 2018-04-09 15:00 | Outpatient (RCR) | payer BC, SELFPAY ==
--- NOTE | 2017-12-02 16:24 | HMH.PTOPEV ---
Rehab Outpatient Evaluation Rehab OP Evaluation Start: 12/02/17 16:05 Freq: Status: Active Protocol: Document 12/02/17 16:06 CHRISTIANO (Rec: 12/02/17 16:24 CHRISTIANO [id number]) Electronically Signed By Alex Chirinos PT 12/02/17 16:06 Outpatient Therapy Subjective History Subjective History This is the initial Physical Therapy evaluation for Valerie Guardado. Pt is a 47 y/o female referred to PT s/p L ankle surgery. Pt reports ankle scope on Sep 23. MD order shows brostrum technique repair of ATF and CF and syndesmosis repair. PT reports w/ co pain in ankle along w/ some c/o paresthesia and decreased sensation to light touch on foot and areas on the lower extremity. Chief Complaint Pain Stiff Swelling Paresthesia Weakness Symptom Type Ache Throb Sharp Stabbing Numbness Tingling Symptoms Relieved By Nothing Symptoms Aggravated By Physical Activity Prior Functional Limitations None Current Functional Limitations Housework Sleeping Standing Squatting Recreation Activity Walking Stairs Balance Symptom Description Intermittent Ankle/Foot Eval Gait Observation General Gait Pattern Observation Antalgic Gait Decrease Weight Bear (L) Assistive Device Ambulation Assistive Device Rolling Walker Palpation Tenderness left Ankle/Foot Palpation Findings Tenderness Muscle Guarding ATF TTP positive CF TTP positive Deltoid ligament TTP positive ROM Ankle/Foot Dorsiflexion w/Knee Extended -20 Active Range Motion (degrees) Ankle/Foot Plantar Flexion Active Range 40 of Motion (degrees) Ankle/Foot Eversion Active Range of 10 Motion (degrees) Ankle/Foot Inversion Active Range of 10 Motion (degrees) Ankle/Foot ROM L
--- NOTE | 2018-02-12 12:56 | PC.PHONENOTE ---
spoke with pharmacist from [facility], gave verbal order to refill Lyrica 75mg BID with one additional refill
--- NOTE | 2018-02-13 10:45 | PC.NURSE ---
refill for gabapentin 300mg tid with 2 refills to pt pharmacy
== END 2018-04-09 15:01 | disposition home or self-care (01) ==
LOC: PT 15:00
PROVIDERS: Visit Provider Podiatrist
DX: Z98.890 Other specified postprocedural states (principal); S84.92XD Injury of unspecified nerve at lower leg level, left leg, subsequent encounter; S93.432D Sprain of tibiofibular ligament of left ankle, subsequent encounter
CPT/HCPCS: 97010; 97014; 97035; 97110; 97140; 97163; 97164; G0283

== ENCOUNTER → 2018-04-14 08:06 | Outpatient (POV) | payer BC, SELFPAY ==
[2018-04-14 08:50] VITALS: BP 131/81; PULSE 70; RESP 18; O2SAT 98; BMI 40.0
--- NOTE | 2018-04-14 08:59 | HMH.PAINSOAP ---
[facility] Pain Management SOAP Note Subjective:: Is a pleasant 47-year-old white female who presents today for follow-up. Patient was scheduled for a DRG stimulator trial for left foot pain. Patient has CRPS type I left lower leg. Patient's been on responsive to medication to help relieve this pain. Patient is swelling and color changes along with temperature changes. Patient rates her pain a 7 out of 10 today. Patient is stating due to her antalgic gait she has been to have more back. When she arrived for her trial at last visit she had a open wound on her left foot. This is been healed at this time. Patient has no open wounds. Patient is not on any antibiotics. Patient is not on any anticoagulation therapies. ROS General: no recent weight change, no fever, no sleep disturbances Respiratory: no cough, no shortness of air, no recurring pulmonary infections Cardiovascular/Peripheral Vascular: No chest pain, No palpitations, no edema, no shortness of breath. Gastrointestinal: no incontinence, normal bowel movements reported Genitourinary: no incontinence Musculoskeletal: Left foot pain Psychiatric: normal mood/ affect Neurological: [denies weakness in extremities], [denies balance issues] Objective:: Physical Exam General: Alert and oriented x3, no acute distress, pleasant and cooperative, [on room air] Lungs: Resps E/U, Symmetrical chest expansion, Eyes: PERRL Musculoskeletal: range of motion left foot somewhat guarded secondary to pain, deep tendon reflexes normal, strength in upper and lower extremities [5/5], [abnormal gait noted] Neurological: speech clear, splunk consultant equal, no gross sensory deficits Assessment:: CRPS left foot Plan:: We will have the patient come back for her DRG trial as soon as possible. Patient is not on any anticoagulation therapy. Patient is not on any antibiotics, patient has no open wounds. This note was dictated using voice recognition software and may contain errors or omissions
--- NOTE | 2018-04-14 09:03 | P.CONS_ITS ---
[facility] Pain Management SOAP Note Subjective:: Is a pleasant 47-year-old white female who presents today for follow-up. Patient was scheduled for a DRG stimulator trial for left foot pain. Patient has CRPS type I left lower leg. Patient's been on responsive to medication to help relieve this pain. Patient is swelling and color changes along with temperature changes. Patient rates her pain a 7 out of 10 today. Patient is stating due to her antalgic gait she has been to have more back. When she arrived for her trial at last visit she had a open wound on her left foot. This is been healed at this time. Patient has no open wounds. Patient is not on any antibiotics. Patient is not on any anticoagulation therapies. ROS General: no recent weight change, no fever, no sleep disturbances Respiratory: no cough, no shortness of air, no recurring pulmonary infections Cardiovascular/Peripheral Vascular: No chest pain, No palpitations, no edema, no shortness of breath. Gastrointestinal: no incontinence, normal bowel movements reported Genitourinary: no incontinence Musculoskeletal: Left foot pain Psychiatric: normal mood/ affect Neurological: [denies weakness in extremities], [denies balance issues] Objective:: Physical Exam General: Alert and oriented x3, no acute distress, pleasant and cooperative, [on room air] Lungs: Resps E/U, Symmetrical chest expansion, Eyes: PERRL Musculoskeletal: range of motion left foot somewhat guarded secondary to pain, deep tendon reflexes normal, strength in upper and lower extremities [5/5], [abnormal gait noted] Neurological: speech clear, clothing trades 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 Patient is not on any anticoagulation therapy. Patient is not on any antibiotics, patient has no open wounds. This note was dictated using voice recognition software and may contain errors or omissions
== END ==
PROVIDERS: PCP Physician Assistant; Visit Provider Clinical Nurse Specialist Family Health
DX: G90.522 Complex regional pain syndrome I of left lower limb (principal)
CPT/HCPCS: 99213

== ENCOUNTER → 2018-04-18 09:26 | Outpatient (POV) | payer BC, SELFPAY ==
--- NOTE | 2018-04-18 11:39 | HMH.PAINSOAP ---
[facility] Pain Management SOAP Note Subjective:: This patient is a pleasant 47-year-old white female who we are treating for complex regional pain syndrome of the left foot and ankle. She underwent spinal cord stimulator trial on Saturday with dorsal root ganglion stimulation of left L3, left L4 and left L5 DRG. It was a very difficult trial so she does have a lot of increasing low back pain from needle trauma. We have started her on tramadol and I will also start her on prednisone 20 mg twice a day to help with her low back pain. She is getting stimulation in the distribution of her pain symptoms. She was having relief of her left foot and ankle pain. She does have some nausea after this procedure. This may be due to her antibiotic. We will have reprogrammed her and we will continue with her tramadol and write her for prednisone 20 mg twice a day and Zofran for nausea. Objective:: Alert and oriented ?3 no acute distress. Patient does need assistance with her gait. Motor strength of the lower extremities is 5/5. There is no gross sensory deficit. Dressing and leads are intact no signs of infection. Assessment:: Complex regional pain syndrome type I left foot and ankle undergoing a spinal cord stimulator trial with DRG stimulation of left L3, left L4 and left L5. Plan:: We have reprogrammed her. She is to continue with her tramadol and start prednisone 20 mg twice a day and continue with Zofran. We will follow-up with her throughout the weekend and on next Saturday for lead pull.
== END ==
PROVIDERS: PCP Physician Assistant; Visit Provider Anesthesiology
DX: G90.522 Complex regional pain syndrome I of left lower limb (principal); Z46.2 Encounter for fitting and adjustment of other devices related to nervous system and special senses
CPT/HCPCS: 95971; 99212

== ENCOUNTER → 2018-04-22 14:01 | Outpatient (POV) | payer BC, SELFPAY ==
[2018-04-22 14:14] VITALS: BP 153/70; PULSE 81; RESP 18; TEMP 36.8; O2SAT 96; BMI 83.9
--- NOTE | 2018-04-22 15:14 | HMH.PAINSOAP ---
[facility] Pain Management SOAP Note Subjective:: Patient is a 47-year-old white female who we are treating for CRPS type I of her left lower extremity. Patient is following up after DRG trial. Patient had DRG placed at L3-L4 and L5 on the left side. Patient is failed conservative therapy including oral medication and nerve blocks. Patient states that she does not feel like the trial helped her. Patient had a significant amount of back pain. Patient currently on gabapentin and Lyrica. I discussed that she should not take both of these medications together. I believe that the patient should follow-up several days after having the stimulator trial leads removed to see if it has helped with her pain symptoms at all. Objective:: Physical Exam General: Alert and oriented x3, no acute distress, pleasant and cooperative, [on room air] Lungs: Resps E/U, Symmetrical chest expansion, Eyes: PERRL Musculoskeletal: Range of motion left foot somewhat guarded secondary to pain, deep tendon reflexes normal, strength in upper and lower extremities [5/5], [abnormal gait noted] Neurological: speech clear, insurance law specialist equal, no gross sensory deficits Assessment:: CRPS type I left lower extremity Plan:: Patient states that Dr. Lima told her that he would be putting her on a long-term leave from work. I discussed that she would need to discuss this with him. If the patient does not feel like the trial was beneficial for her I think we have exhausted most of our efforts as far as treatment. Patient has not been getting any relief with oral medications. I will have the patient follow-up with Dr. Lima in a week and she can assess if she had any relief from her stim trial during that previous week. This note was dictated using voice recognition software and may contain errors or omissions
--- NOTE | 2018-04-22 15:17 | P.CONS_ITS ---
[facility] Pain Management SOAP Note Subjective:: Patient is a 47-year-old white female who we are treating for CRPS type I of her left lower extremity. Patient is following up after DRG trial. Patient had DRG placed at L3-L4 and L5 on the left side. Patient is failed conservative therapy including oral medication and nerve blocks. Patient states that she does not feel like the trial helped her. Patient had a significant amount of back pain. Patient currently on gabapentin and Lyrica. I discussed that she should not take both of these medications together. I believe that the patient should follow-up several days after having the stimulator trial leads removed to see if it has helped with her pain symptoms at all. Objective:: Physical Exam General: Alert and oriented x3, no acute distress, pleasant and cooperative, [on room air] Lungs: Resps E/U, Symmetrical chest expansion, Eyes: PERRL Musculoskeletal: Range of motion left foot somewhat guarded secondary to pain, deep tendon reflexes normal, strength in upper and lower extremities [5/5], [abnormal gait noted] Neurological: speech clear, target trimmer equal, no gross sensory deficits Assessment:: CRPS type I left lower extremity Plan:: Patient states that Dr. Lima told her that he would be putting her on a long-term leave from work. I discussed that she would need to discuss this with him. If the patient does not feel like the trial was beneficial for her I think we have exhausted most of our efforts as far as treatment. Patient has not been getting any relief with oral medications. I will have the patient follow-up with Dr. Lima in a week and she can assess if she had any relief from her stim trial during that previous week. This note was dictated using voice recognition software and may contain errors or omissions
== END ==
PROVIDERS: PCP Physician Assistant; Visit Provider Clinical Nurse Specialist Family Health
DX: G90.522 Complex regional pain syndrome I of left lower limb (principal)
CPT/HCPCS: 99212

== ENCOUNTER → 2018-05-02 10:26 | Outpatient (POV) | payer BC, SELFPAY ==
[2018-05-02 11:32] VITALS: BP 124/65; PULSE 61; RESP 20; O2SAT 95; BMI 39.2
--- NOTE | 2018-05-02 12:29 | HMH.PAINSOAP ---
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 She underwent spinal cord stimulation trial dorsal root ganglion stimulation. She did not note much pain relief. This was an unsuccessful trial. The patient had a significant amount of back pain and did not feel like the trial helped her. She is looking for other treatment options. I talked her about intrathecal therapy is a possibility. I do believe she may be a candidate for intrathecal therapy to help her with her pain symptoms. We have given her information and she is going to think about this and let us know. She is currently off work. I told her we can only take her off work until today's date. To continue to be off work she needs to work through her primary care physician. Objective:: Alert and oriented ?3 no acute distress. Patient does have an antalgic gait. She does have some swelling and discoloration of the left lower extremity. Range of motion is limited. Motor strength of the lower extremity is 4 out of 5. There is some sensory deficit. Assessment:: Place regional pain syndrome type I of the left lower extremity. Plan:: I have offered intrathecal therapy as an option to see if this helps with her pain symptoms. We will seek approval for intrathecal pump trial if the patient agrees. She is going to think about it and let us know. As far as her being off work I told her I can only put her off work up until today's date. Any future work leave needs to be from her primary care physician.
--- NOTE | 2018-05-02 12:33 | P.CONS_ITS ---
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 She underwent spinal cord stimulation trial dorsal root ganglion stimulation. She did not note much pain relief. This was an unsuccessful trial. The patient had a significant amount of back pain and did not feel like the trial helped her. She is looking for other treatment options. I talked her about intrathecal therapy is a possibility. I do believe she may be a candidate for intrathecal therapy to help her with her pain symptoms. We have given her information and she is going to think about this and let us know. She is currently off work. I told her we can only take her off work until today's date. To continue to be off work she needs to work through her primary care physician. Objective:: Alert and oriented ?3 no acute distress. Patient does have an antalgic gait. She does have some swelling and discoloration of the left lower extremity. Range of motion is limited. Motor strength of the lower extremity is 4 out of 5. There is some sensory deficit. Assessment:: Place regional pain syndrome type I of the left lower extremity. Plan:: I have offered intrathecal therapy as an option to see if this helps with her pain symptoms. We will seek approval for intrathecal pump trial if the patient agrees. She is going to think about it and let us know. As far as her being of f work I told her I can only put her off work up until today's date. Any future work leave needs to be from her primary care physician.
--- NOTE | 2018-09-08 08:03 | PC.NURSE ---
GABAPENTIN 300MG CAPSULE PO TID WITH 2 REFILLS FAXED TO [facility] PER PROVIDER ORDER.
== END ==
PROVIDERS: PCP Physician Assistant; Visit Provider Anesthesiology
DX: G90.522 Complex regional pain syndrome I of left lower limb (principal)
CPT/HCPCS: 99212

== ENCOUNTER → 2018-05-09 12:31 | Outpatient (CLI) | payer BC, SELFPAY ==
--- NOTE | 2018-05-09 12:34 | MR_ITS ---
MR lumbar spine wo con, MR 3-d myelogram/MRCP HISTORY: PT states low back pain . Left leg pain, numbness and tingling. ITS.REASON: ACUTE MIDLINE LOW BACK PAIN WITH LEFT SCIATICA ORDERING PHYSICIAN: Leroy Bella MD PATIENT AGE: 47 years Comparison: X-RAY 11/23/11 TECHNIQUE: Standard multiplanar multiecho sequences are performed without contrast. 3-D MIP and myelographic images are also rendered and reviewed FINDINGS: There is normal alignment. The spinal cord and at the L1 level. T11-L3 has an unremarkable appearance. L3-L4: Mild facet and ligamentum flavum hypertrophy with mild left lateral recess narrowing. L4-L5: Minimal bulging disc along with facet and ligamentum hypertrophy with mild bilateral lateral recess and foraminal narrowing. L5-S1: Mild facet and ligamentum flavum hypertrophic change. No disc herniation or canal stenosis. IMPRESSION: 1. Mild facet and ligamentum flavum hypertrophy with mild left lateral recess narrowing at L3-L4 and mild bilateral lateral recess and foraminal narrowing at L4-L5 2. No disc herniation or canal stenosis
== END ==
PROVIDERS: PCP Physician Assistant; Visit Provider Family Medicine
DX: M54.42 Lumbago with sciatica, left side (principal)
CPT/HCPCS: 72148; 76376

== ENCOUNTER → 2018-05-19 09:41 | Outpatient (CLI) | payer BC, SELFPAY ==
[2018-05-19 10:30] VITALS: PULSE 65; PULSE 70
== END ==
PROVIDERS: PCP Physician Assistant; Visit Provider Family Medicine
DX: R06.02 Shortness of breath (principal)
CPT/HCPCS: 94060; 94640

== ENCOUNTER → 2018-05-23 16:19 | Outpatient (CLI) | payer BC, SELFPAY ==
--- NOTE | 2018-05-23 | XR_ITS ---
XR ankle LT min 3V HISTORY: Left ankle pain with limited range of motion ORDERING PHYSICIAN: NAEEM Woody PATIENT AGE: 47 years Comparison: 03/19/2018 FINDINGS: No change status post ORIF distal tib-fib with a lateral bone plate at the tibial and radiolucent fixator in the distal tip. As previously described. The ankle mortise is preserved. The talus has an unremarkable appearance. There is some mild soft tissue swelling along the lateral aspect of the ankle at the distal fibular region IMPRESSION: Mild soft tissue swelling laterally otherwise no change status post prior distal tib-fib surgery
== END ==
PROVIDERS: PCP Physician Assistant; Visit Provider Physician Assistant
DX: M25.572 Pain in left ankle and joints of left foot (principal)
CPT/HCPCS: 73610

== ENCOUNTER → 2018-06-03 13:07 | Outpatient (POV) | payer BC, SELFPAY | PROVIDERS: PCP Physician Assistant; Visit Provider Dermatology | DX: Z00.00 Encounter for general adult medical examination without abnormal findings (principal) ==

== ENCOUNTER → 2018-08-08 13:13 | Outpatient (CLI) | payer BC, SELFPAY | PROVIDERS: PCP Physician Assistant; Visit Provider Physician Assistant | DX: L40.0 Psoriasis vulgaris (principal) ==

== ENCOUNTER → 2018-09-01 15:08 | Outpatient (CLI) | payer BC, SELFPAY ==
[2018-09-01 15:50] LABS: Basophils # 0.1 K/mm3 (0-0.2); Basophils % 0.6 % (0.1-2.0); Eosinophils # 0.3 K/mm3 (0.0-0.4); Eosinophils % 3.3 % (0.1-12.0); Hematocrit 44.8 % (37.0-47.0); Hemoglobin 14.5 g/dL (12.2-16.2); Lymphocytes # 2.7 K/mm3 (0.7-4.5); Lymphocytes % 27.5 % (10-50); Mean Corpuscular HGB Conc 32.3 g/dL (31.8-35.4); Mean Corpuscular Hemoglobin 27.8 pg (27.0-31.2); Mean Platelet Volume 6.8 fl (7.4-10.4); Monocytes # 0.6 K/mm3 (0.1-1.0); Monocytes % 5.7 % (1.7-9.3); Neutrophils # 6.2 K/mm3 (1.8-7.8); Neutrophils % 62.8 % (37.0-80.0); Platelet Count 333 K/mm3 (142-424); Red Blood Count 5.21 M/mm3 (4.20-5.40); Red Cell Distribution Width 13.6 % (11.5-17.5); White Blood Count 9.9 K/mm3 (4.8-10.8)
[2018-09-01 19:22] LABS: Alanine Aminotransferase 23 U/L (12-78); Albumin Level 3.8 gm/dL (3.4-5.0); Albumin/Globulin Ratio 1.2 (1.1-1.8); Alkaline Phosphatase 83 U/L (46-116); Anion Gap 15.3 mEq/L (5-15); Aspartate Amino Transferase 12 U/L (15-37); Bilirubin,Total 0.6 mg/dL (0.2-1.0); Blood Urea Nitrogen 8 mg/dL (7-18); Calcium 8.8 mg/dL (8.5-10.1); Carbon Dioxide 24 mmol/L (21.0-32.0); Chloride 102 mmol/L (98-107); Creatinine,Serum 0.71 mg/dL (0.55-1.02); Estimated Glomerular Filt Rate 89 ml/min (>60); GFR (African American) 108 ML/MIN (>60); Globulin 3.2 gm/dl (1.3-3.2); Glucose 71 mg/dL (74-106); Potassium 4.3 mmoL/L (3.5-5.1); Sodium 137 mmol/L (136-145)
[2018-09-05 17:06] LABS: QuantiFERON-TB Gold Plus Negative (Negative)
== END ==
PROVIDERS: Visit Provider Physician Assistant
DX: L40.0 Psoriasis vulgaris (principal); Z79.899 Other long term (current) drug therapy
CPT/HCPCS: 36415; 80053; 85025; 86480

== ENCOUNTER → 2019-06-30 12:15 | Outpatient (CLI) | payer BC, SELFPAY ==
[2019-06-30 13:38] LABS: Thyroid Stimulating Hormone 3.46 uIU/ml (0.358-3.740)
== END ==
PROVIDERS: Visit Provider Physician Assistant
DX: R79.89 Other specified abnormal findings of blood chemistry (principal)
CPT/HCPCS: 36415; 84439; 84443

== ENCOUNTER → 2019-07-23 15:23 | Outpatient (CLI) | payer BC, SELFPAY ==
--- NOTE | 2019-07-23 15:32 | XR_ITS ---
PROCEDURE: XR ANKLE RT MIN 3V CLINICAL INDICATION: RT ANKLE PAIN COMPARISON: [id number] XR ankle wt bearing LT min 3V from 11/26/2017 [id number] XR ankle wt bearing LT min 3V from 01/14/2018 ANKCMLT XR ankle LT min 3V from 03/19/2018 FINDINGS: No fracture or dislocation. The ankle mortise is preserved. There is a some minimal hyperostosis at the tibial fibular syndesmosis without widening IMPRESSION: No acute findings. Dictated by: Juve Rosales MD 07/23/2019 17:17 Electronically signed by Juve Rosales MD in [place] 07/23/2019 17:17
--- NOTE | 2019-07-23 15:32 | XR_ITS ---
PROCEDURE: XR FOOT RT MIN 3V CLINICAL INDICATION: TENDINITIS OF RT FOOT Right foot pain COMPARISON: FTR3 FOOT-RT-3 VIEWS from 03/05/2017 FTL3 FOOT-LT-3 VIEWS from 03/26/2017 FTR3 FOOT-RT-3 VIEWS from 04/29/2017 [id number] XR foot LT min 3V from 09/05/2017 FINDINGS: No fracture or dislocation. No lytic or blastic change. There is normal mineralization. Mild hypertrophic changes are present at the talonavicular joint and navicular cuneiform joint dorsally. There is a prominent calcaneal spur at 12 mm. Small enthesophytes at the Achilles also noted. Other findings:None. IMPRESSION: Degenerative changes, no acute finding no significant change Dictated by: Juve Rosales MD 07/23/2019 17:16 Electronically signed by Juve Rosales MD in [facility] 07/23/2019 17:16
== END ==
PROVIDERS: PCP Physician Assistant; Visit Provider Physician Assistant
DX: M25.571 Pain in right ankle and joints of right foot (principal); M77.51 Other enthesopathy of right foot and ankle
CPT/HCPCS: 73610; 73630

== ENCOUNTER → 2019-07-28 10:44 | Outpatient (CLI) | payer BC, SELFPAY ==
--- NOTE | 2019-07-28 10:47 | US_ITS ---
PROCEDURE: US ABDOMEN LIMITED CLINICAL INDICATION: SOFT TISSUE MASS IN ABDOMINAL AREA COMPARISON: No exams were available for comparison FINDINGS: Multiple transverse and longitudinal sonographic images were obtained targeted to the area of palpable abnormality along the mid abdominal wall. A persistent focal area of increased echogenicity poorly circumscribed 1.6 x 1.2 x1.6 centimeters is seen in the area of the palpable abnormality. A true nodule is not excluded. A circumscribed lipoma or other etiology nodule would have to be considered. There is no hernia cyst or focal fluid collection. IMPRESSION: Solid hyperechoic nodule like focus 1.6 x 1.2 x 1.6 centimeters in the area of clinically palpable abnormality Dictated by: Naren Vazquez 07/28/2019 11:38 Electronically signed by Naren Vazquez in [facility] 07/28/2019 11:38
== END ==
PROVIDERS: PCP Physician Assistant; Visit Provider Physician Assistant
DX: R19.00 Intra-abdominal and pelvic swelling, mass and lump, unspecified site (principal)
CPT/HCPCS: 76705

== ENCOUNTER → 2019-07-29 13:19 | Outpatient (POV) | payer BC, SELFPAY | DX: Z00.00 Encounter for general adult medical examination without abnormal findings (principal) ==

== ENCOUNTER → 2020-05-27 07:12 | Outpatient (CLI) | payer BC, SELFPAY ==
--- NOTE | 2020-05-27 07:17 | CT_ITS ---
PROCEDURE: CT ABDOMEN PELVIS WO CON CLINICAL INDICATION: RT SIDED ABD PAIN,HEMATURIA COMPARISON: No exams were available for comparison TECHNIQUE: Axial images obtained with sagittal and coronal reformats. All CT scans at the facility use one or more dose reduction, viz: automated exposure control, ma/kV adjustment per patient size (including targeted exams where dose is matched to indication, i.e. head), or iterative reconstruction technique. FINDINGS: LOWER THORAX: No acute finding ABDOMEN & PELVIS: The liver, gallbladder, adrenal glands, pancreas, and kidneys have an unremarkable appearance. There is a subtle 7 mm hypodensity in the central aspect of the spleen nonspecific. No evidence of appendicitis. No intestinal obstruction or free air. There are post hysterectomy changes. Soft tissue density is present in the right lower pelvic region measuring 4 x 3 cm and may represent the right ovary. Please correlate with surgical history as to whether the patient had ovaries removed with hysterectomy. If there has also been a right-sided oophorectomy then follow-up would be in order. There is an epidural stimulator device present with the generator in the left posterior paraspinal region. The superior aspect of the electrodes is at the T8-T9 level. No acute bony findings. There are mild osteoarthritic changes of the hips. IMPRESSION: 1. No acute abdominal or pelvic findings. 2. Probable residual ovary in the right lower quadrant. Please correlate with surgical history. Prior hysterectomy. 3. 7 mm hypodensity of the spleen. This is nonspecific and may be due to small cyst or hemangioma. Follow-up may confirm stability Dictated by: Juve Rosales MD 05/28/2020 08:06 Juve Rosales MD in [place] 05/28/2020 08:06
== END ==
PROVIDERS: PCP Family Medicine; Visit Provider Family Medicine
DX: R10.9 Unspecified abdominal pain (principal); R31.29 Other microscopic hematuria
CPT/HCPCS: 74176

== ENCOUNTER → 2020-06-23 15:00 | Outpatient (CLI) | payer BC, SELFPAY ==
--- NOTE | 2020-06-23 15:05 | XR_ITS ---
PROCEDURE: XR CERVICAL SPINE 5V CLINICAL INDICATION: DISORDER OF NECK Pain with limited range of motion COMPARISON: No exams were available for comparison FINDINGS: No fracture or dislocation. No lytic or blastic change. There is normal mineralization. Degenerative disc disease C5-C6 and C6-C7. No significant foraminal narrowing. No acute fracture or dislocation. No lytic or blastic change or cervical rib. Other findings:None. IMPRESSION: Degenerative changes as described above Dictated by: Juve Rosales MD 06/23/2020 15:21 Juve Rosales MD in [facility] 06/23/2020 15:21
== END ==
PROVIDERS: PCP Family Medicine; Visit Provider Family Medicine
DX: M53.82 Other specified dorsopathies, cervical region (principal)
CPT/HCPCS: 72050

== ENCOUNTER → 2020-11-10 15:19 | Outpatient (CLI) | payer BC, SELFPAY ==
--- NOTE | 2020-11-10 15:19 | CT_ITS ---
PROCEDURE: CT HEAD/BRAIN WO CON CLINICAL INDICATION: severe headaches Headaches with dizziness COMPARISON: No exams were available for comparison TECHNIQUE: Axial images obtained. All CT scans at the facility use one or more dose reduction, viz: automated exposure control, ma/kV adjustment per patient size (including targeted exams where dose is matched to indication, i.e. head), or iterative reconstruction technique. FINDINGS: No midline shift, mass effect, intracranial hemorrhage, hydrocephalus, or extra-axial fluid collection is evident. The calvarium has an unremarkable appearance. The mastoid sinuses are hypoplastic. There does appear to be a small amount of fluid in the left mastoid sinus and there appears to be postsurgical changes of the right mastoid sinus. There is severe mucosal thickening involving the maxillary sinuses bilaterally with moderate mucosal thickening of the ethmoid sinuses and the left sphenoid sinus. IMPRESSION: 1. No acute intracranial findings. 2. Paranasal sinus disease. 3. Prior right mastoidectomy with a small amount of fluid in the left mastoid sinus Dictated by: Juve Rosales MD 11/10/2020 16:56 Juve Rosales MD in [place] 11/10/2020 16:56
== END ==
PROVIDERS: PCP Physician Assistant; Visit Provider Specialist
DX: G44.52 New daily persistent headache (NDPH) (principal)
CPT/HCPCS: 70450

== ENCOUNTER → 2020-12-05 20:09 | Outpatient (CLI) | payer BC, SELFPAY | PROVIDERS: PCP Family Medicine; Visit Provider Nurse Practitioner Family | DX: G47.33 Obstructive sleep apnea (adult) (pediatric) (principal); G47.61 Periodic limb movement disorder; G47.36 Sleep related hypoventilation in conditions classified elsewhere | CPT/HCPCS: 95811 ==

== ENCOUNTER → 2020-12-15 08:48 | Outpatient (CLI) | payer BC, SELFPAY ==
[2020-12-15 09:18] LABS: Basophils % 0.4 % (0.1-2.0); Eosinophils # 0.2 K/mm3 (0.0-0.4); Hemoglobin 13.6 g/dL (12.2-16.2); Lymphocytes # 2.1 K/mm3 (0.7-4.5); Lymphocytes % 17.7 % (10-50); Mean Corpuscular HGB Conc 32.5 g/dL (31.8-35.4); Mean Corpuscular Hemoglobin 27.9 pg (27.0-31.2); Mean Corpuscular Volume 85.8 fl (81-99); Mean Platelet Volume 7.2 fl (7.4-10.4); Monocytes # 0.4 K/mm3 (0.1-1.0); Monocytes % 3.6 % (1.7-9.3); Neutrophils # 8.9 K/mm3 (1.8-7.8); Neutrophils % 76.3 % (37.0-80.0); Platelet Count 304 K/mm3 (142-424); Red Cell Distribution Width 14.5 % (11.5-17.5); White Blood Count 11.7 K/mm3 (4.8-10.8)
[2020-12-15 09:57] LABS: Iron 70 ug/dL (37-170)
[2020-12-15 10:07] LABS: Total Iron Binding Capacity 254 ug/dL (265-497)
[2020-12-15 10:34] LABS: Ferritin 94.6 ng/ml (6.24-137)
== END ==
PROVIDERS: Visit Provider Nurse Practitioner Family
DX: E83.10 Disorder of iron metabolism, unspecified (principal); G47.61 Periodic limb movement disorder; R23.8 Other skin changes
CPT/HCPCS: 36415; 82728; 83540; 83550; 85025

== ENCOUNTER → 2021-01-03 10:14 | Outpatient (POV) | payer BC, SELFPAY | PROVIDERS: Visit Provider Otolaryngology | DX: Z00.00 Encounter for general adult medical examination without abnormal findings (principal) ==

== ENCOUNTER → 2021-06-30 10:03 | Outpatient (CLI) | payer BC, SELFPAY ==
[2021-06-30 11:29] LABS: Basophils # 0.1 K/mm3 (0-0.2); Basophils % 0.6 % (0.1-2.0); Eosinophils # 0.2 K/mm3 (0.0-0.4); Eosinophils % 1.5 % (0.1-12.0); Hematocrit 41.4 % (37.0-47.0); Hemoglobin 13.6 g/dL (12.2-16.2); Lymphocytes # 2.8 K/mm3 (0.7-4.5); Lymphocytes % 26.3 % (10-50); Mean Corpuscular HGB Conc 32.8 g/dL (31.8-35.4); Mean Corpuscular Hemoglobin 28.7 pg (27.0-31.2); Mean Corpuscular Volume 87.6 fl (81-99); Mean Platelet Volume 7.7 fl (7.4-10.4); Monocytes # 0.4 K/mm3 (0.1-1.0); Monocytes % 3.7 % (1.7-9.3); Neutrophils # 7.1 K/mm3 (1.8-7.8); Neutrophils % 67.8 % (37.0-80.0); Platelet Count 371 K/mm3 (142-424); Red Blood Count 4.73 M/mm3 (4.20-5.40); Red Cell Distribution Width 14.5 % (11.5-17.5); White Blood Count 10.4 K/mm3 (4.8-10.8)
== END ==
PROVIDERS: PCP Physician Assistant; Visit Provider Physician Assistant
DX: Z20.822 Contact with and (suspected) exposure to COVID-19 (principal)
CPT/HCPCS: 36415; 85025; C9803; U0003; U0005

== ENCOUNTER → 2021-10-02 14:09 | Outpatient (CLI) | payer BC, SELFPAY | LOC: RT 14:11 | PROVIDERS: PCP Family Medicine; Visit Provider Nurse Practitioner Family | DX: G47.33 Obstructive sleep apnea (adult) (pediatric) (principal); G47.00 Insomnia, unspecified; G47.34 Idiopathic sleep related nonobstructive alveolar hypoventilation | CPT/HCPCS: 94762 ==

== ENCOUNTER → 2022-05-29 15:07 | Outpatient (CLI) | payer BC, SELFPAY | PROVIDERS: PCP Physician Assistant; Visit Provider Nurse Practitioner Family | DX: G47.33 Obstructive sleep apnea (adult) (pediatric) (principal) | CPT/HCPCS: 94762 ==

== ENCOUNTER → 2022-07-05 12:05 | Outpatient (CLI) | payer BC, SELFPAY ==
--- NOTE | 2022-07-05 12:09 | XR_ITS ---
FINAL REPORT CLINICAL HISTORY: LOW LEFT SIDED BACK PAIN FINDINGS: 4 views were obtained. There is no acute fracture. There is no malalignment. There are mild hypertrophic changes of degenerative disc disease at L2-L3, L3-L4, and L4-L5. IMPRESSION: Mild degenerative disc disease. Reviewed, Interpreted and Dictated by Сергей Bautista MD Transcribed by Tone Apodaca Authenticated and [facility]
== END ==
LOC: RAD 12:05
PROVIDERS: PCP Family Medicine; Visit Provider Physician Assistant
DX: M54.17 Radiculopathy, lumbosacral region (principal)
CPT/HCPCS: 72110

== ENCOUNTER → 2022-12-07 10:30 | Outpatient (CLI) | payer BC, SELFPAY ==
--- NOTE | 2022-12-07 10:36 | XR_ITS ---
FINAL REPORT CLINICAL HISTORY: ACUTE PAIN OF LEFT SHOULDER X MOS, NKT. FINDINGS: Left shoulder Three views were obtained. There is no acute fracture or dislocation. There is mild AC joint degenerative change. No soft tissue abnormality is identified. IMPRESSION: Mild AC joint degenerative change. Reviewed, Interpreted and Dictated by Adrián Jaquez III, MD Transcribed by Marissa Heller Authenticated and . [facility]
== END ==
LOC: RAD 10:32
PROVIDERS: PCP Physician Assistant; Visit Provider Physician Assistant
DX: M25.512 Pain in left shoulder (principal)
CPT/HCPCS: 73030

== ENCOUNTER 2023-09-17 17:35 | Emergency (ER) | payer BC, SELFPAY ==
--- NOTE | 2023-09-17 17:43 | XR_ITS ---
PROCEDURE INFORMATION: Exam: XR Left Ankle Exam date and time: 09/17/2023 5:40 PM Age: 52 years old Clinical indication: Injury or trauma; Fall; Blunt trauma; Ankle; Left TECHNIQUE: Imaging protocol: Radiologic exam of the left ankle. Views: 3 or more views. COMPARISON: CR ANKCMLT XR ankle LT min 3V 05/23/2018 4:28 PM FINDINGS: Bones/joints: Distal fibula plate and screw fixation and syndesmotic repair. Intact surgical hardware. Chronic medial malleolus avulsive changes. No acute fracture. Calcaneal enthesopathy. Tibiotalar and talonavicular joint degenerative changes. Soft tissues: Normal. IMPRESSION: No acute osseous findings.
[2023-09-17 18:10] VITALS: BP 130/88; PULSE 71; RESP 18; TEMP 36.6; O2SAT 98; BMI 44.0
--- NOTE | 2023-09-17 18:30 | EXP.UTC ---
Discharge Plan Disposition Patient Disposition: Home, Self-Care Condition: Good Prescriptions Prescriptions: No Action B12 Active 1,000 mcg tablet,chewable 1,000 mcg PO DAILY Slow Fe 142 mg (45 mg iron) tablet extended release 142 mg PO DAILY cetirizine [Zyrtec] 10 mg tablet 10 mg PO DAILY PRN lisinopril 5 mg tablet 5 mg PO DAILY levothyroxine [Synthroid] 50 mcg tablet 75 mcg PO DAILY bupropion HCl 75 mg tablet 75 mg PO BID paroxetine HCl 10 mg tablet 20 mg PO DAILY cyclobenzaprine 5 mg tablet 5 mg PO PRN Patient Comments: TAKE 1 TO 2 TABLETS BY MOUTH THREE TIMES DAILY NEEDED topiramate 100 mg tablet 200 mg PO HS 90 Days Qty: 180 3RF Nurtec ODT 75 mg tablet,disintegrating 75 mg PO ONCE PRN (Reason: migraine headache) Qty: 10 11RF Rx Instructions: Take 75 mg at onset of headache. Max dose 75 mg in 24 hours. Referrals Follow up/Referrals: Va Nieves PA [Primary Care Provider] - See instructions Fili Chao DO [Staff Physician] - See instructions Activity Restrictions/Add. Instructions Additional Instructions/Restrictions: *weight bearing as tolerated Use walker to help you get around *RICE, Rest the extremity, Ice 15-20 minutes 3-4 times daily, Compress- wear the bonifacio wrap as discussed as much as possible to help reduce swelling and pain, Elevate the extremity when at rest *Walking boot is for support and help control swelling, use it except in the shower. Be sure that is not to tight but not to loose either *Elevate when resting? *Ibuprofen 600-800mg every 6-8 hours as needed for pain an inflammation. If need something more can take Tylenol in between doses of Ibuprofen to help Immediately follow up with your family doctor for new or worsening of symptoms, or no noticeable improvement over the next 3-5 days Clinical Impressions Clinical Impression: Ankle sprain Qualifiers: Encounter type: initial encounter Involved ligament of ankle: unspecified ligament Laterality: left Qualified Code(s): S93.402A - Sprain of unspecified ligament of left ankle, initial encounter Instructions Patient Instructions: Ankle Sprain, DI for Ankle Sprain Discharge ED Provider: Shelbi Quiroz [facility] [place] General Stated complaint: AO/30 fall LT ankle hip inj Mode of Arrival: Ambulatory Source of Information: Patient Limitations: No Limitations Time Seen by Provider: 09/17/23 18:30 Description of Symptoms (Recalled from Triage Doc. by RN): PATIENT STATES SHE ROLLED HER LEFT ANKLE TODAY AT APPROX 1100 HEENT Symptoms (Recalled from RN notes): No Resp Symptoms (Recalled from RN notes): No Skin Symptoms (Recalled from RN notes): No MS Symptoms (Recalled from RN notes): Yes Functional Status (Recalled from RN notes): WNL History of Present Illness Provider Complaint: Patient states that earlier today she rolled her left ankle and ever since she has been having pain when she tries to walk on it States that she did hit her knee and left hip when she fell but they arent hurting that bad just wants to get her ankle checked worried she may have broken it Related Data Home Medications Medication Instructions Recorded Confirmed lisinopril 5 mg tablet 5 mg PO DAILY 11/01/20 12/27/22 ferrous sulfate 142 mg (45 mg 142 mg PO DAILY 09/26/21 12/27/22 iron) tablet,extended release (Slow Fe) mecobalamin (vitamin B12) 1,000 1,000 mcg PO DAILY 09/26/21 12/27/22 mcg chewable tablet (B12 Active) bupropion HCl 75 mg tablet 75 mg PO BID 10/24/21 12/27/22 levothyroxine 50 mcg tablet 75 mcg PO DAILY 05/29/22 12/27/22 (Synthroid) cetirizine 10 mg tablet (Zyrtec) 10 mg PO DAILY PRN 07/05/22 12/27/22 cyclobenzaprine 5 mg tablet 5 mg PO PRN 12/27/22 12/27/22 paroxetine HCl 10 mg tablet 20 mg PO DAILY 12/27/22 12/27/22 Previous Rx's Medication Instructions Recorded rimegepant 75 mg disintegrating 75 mg PO ONCE PRN migraine 12/27/22 tablet (Nurtec ODT) headache #10 tabs topiramate 100 mg tablet 200 mg PO HS headache prevention 12/27/22 90 days #180 tabs Allergies Allergy/AdvReac Type Severity Reaction Status Date / Time meloxicam Allergy Mild Rash Verified 09/11/23 07:39 Worker's Comp Is this a Worker's Comp case?: No [facility] Disclaimer: The information contained in this section may have been updated after the patient was seen, as this information can be updated by other users. 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 food current occupational exposures/hazards: No caffeine: Yes ROS Obtained: Yes All systems reviewed & no additional complaints except as documented and Yes Systems reviewed as appropriate & no additional complaints except as documented ENT Ears, Nose, Mouth, and Throat: Reports system reviewed and no additional complaints, except as documented and Reports as per HPI Cardiovascular Cardiovascular: Reports system reviewed and no additional complaints, except as documented and Reports as per HPI Respiratory Respiratory: Reports system reviewed and no additional complaints, except as documented and Reports as per HPI Gastrointestinal Gastrointestingal: Reports system reviewed and no additional complaints, except as documented and as per HPI Musculoskeletal Musculoskeletal: Reports system reviewed and no additional complaints, except as documented, Reports as per HPI and Reports other (pain and swelling in left ankle after rolling it earlier today) Physical Exam General General appearance: alert and in no apparent distress Respiratory Respiratory exam: Present normal lung sounds bilaterally; Absent respiratory distress or wheezes Cardiovascular Cardiovascular exam: Present regular rate, normal rhythm and normal heart sounds Expanded Lower Extremity Exam Left: Hip/Pelvis exam: Present pelvis stable; Absent tenderness, swelling, ecchymosis, deformity, external rotation, internal rotation, shortening of leg or hip pain on leg movement Upper leg exam: Present normal inspection Knee exam: Present normal inspection and tenderness (mild around knee area); Absent abrasion, ecchymosis or erythema Lower leg exam: Present normal inspection Ankle exam: Present tenderness, swelling and ecchymosis; Absent erythema Ankle image: 1. reports tenderness and swelling since she rolled her ankle earlier today at home but has been walking on it Gait: observed and limited by pain Neurological Exam Neurological exam: Present alert, oriented X3 and normal gait Medical Decision Making Derek Inquiry Pt receiving controlled substance: No Derek was queried for this patient: No Vital Signs: 09/17/23 18:10 Temperature 97.9 F Temperature Source Oral Pulse Rate [Left Brachial] 71 Respiratory Rate 18 Blood Pressure [Left Arm] 130/88 Blood Pressure Mean [Left Arm] 102 Blood Pressure Source [Left Arm] Automatic Cuff Blood Pressure Position [Left Arm] Sitting 02 Sat by Pulse Oximetry 98 Oxygen Delivery Method Room Air Orders (Tests/Meds): ORDERS Category Date Time Status XR ankle LT min 3V Stat Exams 09/17/23 17:43 Completed Radiology Data #1: Image Reviewed: Yes I have reviewed radiologist's interpretation FINDINGS: Bones/joints: Distal fibula plate and screw fixation and syndesmotic repair. Intact surgical hardware. Chronic medial malleolus avulsive changes. No acute fracture. Calcaneal enthesopathy. Tibiotalar and talonavicular joint degenerative changes. Soft tissues: Normal. IMPRESSION: No acute osseous findings.
[2023-09-17 18:52] VITALS: BP 130/88; PULSE 71; RESP 18; TEMP 36.6; O2SAT 98
== END 2023-09-17 18:58 | disposition home or self-care (01) ==
PROVIDERS: Emergency Provider Nurse Practitioner; PCP Physician Assistant
DX: S93.402A Sprain of unspecified ligament of left ankle, initial encounter (principal); M25.572 Pain in left ankle and joints of left foot; X50.1XXA Overexertion from prolonged static or awkward postures, initial encounter; Z87.891 Personal history of nicotine dependence
CPT/HCPCS: 73610; 99204; 99212; G0463

== ENCOUNTER 2023-09-20 09:37 | Outpatient (CLI) | payer BC, SELFPAY ==
--- NOTE | 2023-09-20 09:42 | XR_ITS ---
FINAL REPORT CLINICAL HISTORY: LT SHOULDER INJURY FINDINGS: LEFT SHOULDER 3 views of the left shoulder were obtained. There is no acute fracture or dislocation. There are mild degenerative changes. The visualized joint spaces are normally aligned. Soft tissues are unremarkable. IMPRESSION: No acute bony abnormality. Reviewed, Interpreted and Dictated by Leroy Jackson MD Transcribed by Whitney Alberto Authenticated and [facility]
--- NOTE | 2023-09-20 09:42 | XR_ITS ---
FINAL REPORT CLINICAL HISTORY: LT KNEE INJURY FINDINGS: LEFT KNEE 3 views of the left knee were obtained. There is no acute fracture or dislocation. There are mild degenerative changes. The visualized joint spaces are normally aligned. Soft tissues are unremarkable. IMPRESSION: No acute bony abnormality. Reviewed, Interpreted and Dictated by Leroy Jackson MD Transcribed by Whitney Alberto Authenticated and [facility]
--- NOTE | 2023-09-20 09:42 | XR_ITS ---
FINAL REPORT TECHNIQUE: 5 views CLINICAL HISTORY: INJURY OF LOWER BACK FINDINGS: There is no fracture present. There is no malalignment. There is moderate diffuse degenerative disc disease. There is moderate facet arthropathy. IMPRESSION: No acute process. Reviewed, Interpreted and Dictated by Leroy Jackson MD Transcribed by Whitney Alberto Authenticated and [facility]
== END 2023-09-20 23:59 ==
LOC: RAD 09:38
PROVIDERS: PCP Physician Assistant; Visit Provider Physician Assistant
DX: M25.562 Pain in left knee (principal); S89.92XA Unspecified injury of left lower leg, initial encounter; M25.512 Pain in left shoulder; S49.92XA Unspecified injury of left shoulder and upper arm, initial encounter; M54.50 Low back pain, unspecified; S39.92XA Unspecified injury of lower back, initial encounter
CPT/HCPCS: 72110; 73030; 73562

== ENCOUNTER 2024-07-29 10:40 | Outpatient (CLI) | payer BC, SELFPAY ==
--- NOTE | 2024-07-29 10:44 | XR_ITS ---
FINAL REPORT CLINICAL HISTORY: RT KNEE PAIN FINDINGS: Right knee Three views were obtained. There is no fracture or dislocation. The joint spaces appear normal. No soft tissue abnormality is identified. IMPRESSION: No acute process. Reviewed, Interpreted and Dictated by Adrián Jaquez III, MD Transcribed by Marissa Heller Authenticated and [facility]
--- OUTSIDE RECORDS SUMMARY | 2024-07-29 10:44 | XMS_ITS | Encounter Summary ---
Author Organization Healthcare Address [address] [place] [address] Care Team Providers Care Barrel Centerer Name Role Phone Crow Monge MD Primary Care Provider + [phone] Reason for Visit * Reason Comments Follow-up Seeing neuro for sabine lopez, needs to make sure stimulator is MRI safe bc no one trusts that it's MRI safe , also having issues with stimulator, can't feel anything in left leg when it's turned up Encounter Details Date Type Department Care Team (Late st Contact Info) Description 06/13/2022 10:00 AM EDT Office Visit [facility] Interventional Pain Medicine [address] [place] [address] Praveen Tena MD [address] [place] [address] Chronic pain of left knee (Primary Dx); Spondylosis of lumbosacral region without myelopathy or radiculopathy Social History Tobacco Use Types Packs/Day Years Used Date Smoking Tobacco: Never Smokeless Tobacco: Never Tobacco Cessation:Counseling Given: Not Answered Alcohol Use Standard Drinks/Week Comments No 0 (1 standard drink = 0.6 oz pur e alcohol) Comments Unknown Sex and Gender Information Value Date Recorded Sex Assigned at Not on file Legal Sex Female 8:25 PM EDT Gender Identity Not on file Sexual Orientation Not on file COVID-19 Exposure Response Date Recorded In the last 10 days, have yo u been in contact with someone who was confirmed or suspected to have Coronavirus/COVID-19? No / Unsure 06/13/2022 9:41 AM EDT documented as of this encounter Last Filed Vital Signs Vital Sign Reading Time Taken Comments Blood Pressure 126/80 06/13/2022 9:55 AM EDT Pulse 87 06/13/2022 9:55 AM EDT Temperature 36.8 ??C (98.2 ??F) 06/13/2022 9:55 AM ED T Respiratory Rate - - Oxygen Saturation - - Inhaled Oxygen Concentration - - Weight 120 kg (264 lb) 06/13/2022 9:55 AM EDT Height 167.6 cm (5' 6 ) 06/13/2022 9:55 AM EDT Body Mass Index 42.61 06/13/2022 9:55 AM EDT documented in this encounter Miscellaneous Notes * Progress Notes - Chapo Barbosa MD - 06/13/2022 10:00 AM EDT Subjective History of Presenting Illness Ms. Guardado is a 48-year-old female with a history of CRPS of left lower extremity who presents to clinic today after undergoing spinal cord stimulator placement on 05/04/19 with [employer] and s/p left steroid knee injection 10/07/19. Patient presents today for follow up. She reports that she is being seen by another physician for headaches and is requesting a head MRI and patient would like to know if her SCS is MRI compatible. Onset/Course: Pain Pain Location: Left ankle Pain Quality: burning and dull Pain Intensity: 8 / 10 Aggravating Factors: none (constant) Alleviating Factors: none (constant) Associated Symptoms: none Previous Non-Interventional Treatments heat ice medication trials modified activities physical therapy physical therapy > 6 weeks physician-supervised HEP > 6 weeks rest Previous Interventional Treatments Left steroid knee injection 10/07/19 DRG trial 04/2018 with Mr. Lima (no benefit) Saphenous nerve block and LSB with significant but short term benefit [employer] SCS Implant 05/04/19 Review of Systems Constitutional: no fever, or weight loss Musculoskeletal: as per HPI Integumentary: no skin rashes, lesions or ulcers Neurological: as per HPI Psychiatric: as per HPI Hematologic/Lymphatic: no enlarged lymph nodes or excessive bleeding Objective Physical Exam Appearance: alert, oriented x 3, in NAD Extremity: no edema, no clubbing, no cyanosis Skin: no rash or ulcers Neurologic: Ramirez's negative, clonus negative, reflexes normal BUE and BLE Musculoskeletal: Tone: normal Strength: Supervisor Reinforced Steel Placing Strength (R/L): 5/5 Wrist Flexion (R/L): 5/5 Wrist Extension (R/L): 5/5 Deltoids (R/L): 5/5 Triceps (R/L): 5/5 Bicep Flexion (R/L): 5/5 Hip Flexion (R/L): 5/5 Knee Flexion (R/L): 5/5 Knee Extension (R/L): 5/5 Dorsiflexion (R/L): 5/5 Plantarflexion (R/L): 5/5 Imaging/Studies No new imaging to review Assessment/Plan #CRPS II of LLE, Chronic worsening - Patient has [employer] SCS reports decreased pain relief over the last few months. - [employer] contacted today and evaluated in clinic today, SCS was reprogrammed in clinic today andpatient was able to get coverage in appropriate area of BLE. - Patient will be having an MRI brain coming up. Discussed with Patient that SCS is full body MRI compatible and the [employer] rep went over the parameters today. The central supply technician and center can call the medtronic # on the patients card for full parameter detail. The device would need to be put in MRI mode. [employer] can be available at time/date to come to MRI appointment, need to reach out the the [employer] rep. - If LLE pain persists we can get updated T and L spine XR but given that we got good coverage today with programming will hold off for now. #Axial low back pain: Chronic stable -Lumbar medial branch blocks provided 20% relief for approximately 3 hours. - no further intervention #Left knee pain: Chronic worsening - Patient is S/P Multiple CSI, and Synvisc injections. - Patient was followed by orthopaedic surgery #Ankle pain with h/o fusion: Chronic stable - no surgery currently indicated per patient Cosigned by Praveen Tena MD at 06/13/2022 11:24 AM EDT Associated attestation - Praveen Tena MD - 06/13/2022 11:24 AM EDT I saw and evaluated the patient with the resident/fellow. I discussed the case with the resident/fellow and agree with the findings and plan as documented. Total time 40 minutes, greater than 50% of which was spent in counseling and coordination of care documented in this encounter Plan of Treatment Not on file documented as of this encounter Visit Diagnoses Diagnosis Chronic pain of left knee- Primary Spondylosis of lumbosacral region without myelopathy or radiculopathy documented in this encounter Additional Health Concerns Assessment Noted Time A fall risk assessment has been complete d for the patient 06/13/2022 9:54 AM EDT documented as of this encounter Care Teams Barrel Centerer Relationship Specialty Start Date End Date Crow Monge MD [address] [place] [address] [place] [address] PCP - General 12/30/20 documented as of this encounter
--- OUTSIDE RECORDS SUMMARY | 2024-07-29 10:44 | XMS_ITS | Encounter Summary ---
Author Organization Healthcare Address [address] [place] [address] Care Team Providers Care Principal Consultant Name Role Phone Crow Monge MD Primary Care Provider [phone] Encounter Details Date Type Department Care Team (Latest Contact Info) Description 06/13/2022 Travel Social History Tobacco Use Types Packs/Day Years Used Date Smoking Tobacco: Never Smokeless Tobacco: Never Alcohol Use Standard Drinks/Week Comments No 0 [...] AM EDT documented as of this encounter Plan of Treatment Not on file documented as of this encounter Visit Diagnoses Not on filedocumented in this encounter Additional Health Concerns Assessment Noted Time A fall risk assessment has been complete d for the patient 06/13/2022 9:54 AM EDT documented as of this encounter Care Teams Principal Consultant Relationship Specialty Start Date End Date Crow Monge MD [address] [facility] [address] [place] [id number] PCP - General 12/30/20 documented as of this encounter
--- OUTSIDE RECORDS SUMMARY | 2024-07-29 10:44 | XMS_ITS | Encounter Summary ---
Author Organization Healthcare Address [address] [place] [address] Care Team Providers Care Tan Room Supervisor Name Role Phone Crow Monge MD Primary Care Provider [phone] Encounter Details Date Type Department Care Team (Latest Contact Info) Description 06/07/2022 Travel Social History Tobacco Use Types Packs/Day Years Used Date Smoking Tobacco: Never Alcohol Use Standard Drinks/Week Comments [...] suspected to have Coronavirus/COVID-19? No / Unsure 06/07/2022 11:40 AM EDT documented as of this encounter Plan of Treatment Not on file documented as of this encounter Visit Diagnoses Not on filedocumented in this encounter Care Teams Tan Room Supervisor Relationship Specialty Start Date End Date Crow Monge MD [facility] [address] [address] PCP - General 12/30/20 documented as of this encounter
--- OUTSIDE RECORDS SUMMARY | 2024-07-29 10:44 | XMS_ITS | Clinical Summary ---
Author Organization [facility] Address [address] [place] [address] Care Team Providers Care Cemetery Laborer Name Role Phone Crow Monge MD Primary Care Provider [phone] Allergies Active Allergy Reactions Criticality Noted Date Comments Meloxicam Rash,Unknown - Patie nt states they do not know rxn details Low 06/13/2018 Medications buPROPion SR (Wellbutrin SR) 100 MG 12 hr tablet Take 100 mg by mouth 2 (two) times a day. 2 Active levothyroxine (Synthroid, Levoxyl) 75 MCG tablet 2 Active lisinopril 5 MG tablet Take 5 mg by mouth 1 (one) time each day. 2 Active PARoxetine (Paxil) 10 MG tablet Take 10 mg by mouth 1 (one) time each day. 2 Active Nurtec 75 MG tablet dispersible DISSOLVE 1 TABLET BY MOUTH EVERY OTHER DAY FOR EPISODIC MIGRAINE. MAX DAILY DOSE OF 75MG PER DAY 2 Active topiramate (Topamax) 100 MG tablet Take 200 mg by mouth every night. 2 Active mirabegron ER (Myrbetriq) 25 MG tablet Take 25 mg by mouth. Active cyanocobalamin 500 MCG tablet Take 500 mcg by mouth 1 (one) time each day. Active Active Problems No known active problems Social History Tobacco Use Types Packs/Day Years [...] on file Sexual Orientation Not on file Last Filed Vital Signs Vital Sign Reading Time Taken Comments Blood Pressure 126/80 06/13/2022 9:55 AM EDT Pulse 87 06/13/2022 9:55 AM EDT Temperature 36.8 ??C (98.2 ??F) 06/13/2022 9:55 AM ED T Respiratory Rate 16 09/22/2019 10:57 AM EST Oxygen Saturation - - Inhaled Oxygen Concentration - - Weight 120 kg (264 lb) 06/13/2022 9:55 AM EDT Height 167.6 cm (5' 6 ) 06/13/2022 9:55 AM EDT Body Mass Index 42.61 06/13/2022 9:55 AM EDT Plan of Treatment Health Maintenance Due Date Last Done Comments [facility]-Depression Screening 1972 [facility]-HIV Screening 1972 [facility]-Hepatitis C Screening 1972 [facility]-Infant/Child/Adol SDOH Screenings 1972 [facility]- SDOH Screenings 1990 [facility]-Adult SDOH Screenings 1990 [facility]-Hepatitis B Vaccines (1 of 3 - 19+ 3-dose series) 12/03/1991 CT Colonography 2017 Colonoscopy 2017 FIT-DNA 2017 FIT 2017 FOBT 2017 Sigmoidoscopy 2017 [facility]-Colorectal Cancer Screening 2017 [facility]-Breast Cancer Screening 2022 [id number] Vaccine (3 - 2023- season) 2024 12/20/2020, 11/29/2020 [facility]-Influenza Vaccine (#1) 04/19/202405/03, 06/01/2022, 05/28/2021 [facility]-DTaP,Tdap,and Td Vaccine s (2 - Td or Tdap) 10/26/2030 10/26/2020 [facility]-RSV Vaccine: 60+ Years o r (1 - 1-dose 75+ series) 12/03/2047 [facility]-Obesity Intervention Completed 06/13/2022 [facility]-Zoster Vaccines Completed 07/05/2023, 05/03/2023 [facility]-HIB Vaccines Aged Out No longer e ligible based on patient's age to complete this topic [facility]-HPV Vaccines Aged Out No longer e ligible based on patient's age to complete this topic [facility]-Hepatitis A Vaccines Aged Out No longer eligible based on patient's age to complete this topic [facility]-IPV Vaccines Aged Out No longer e ligible based on patient's age to complete this topic [facility]-Pneumococcal Vaccine: Pediatrics (0 to 5 Years) and At-Risk Patients (6 to 64 Years) Aged Out No longer eligible b ased on patient's age to complete this topic [facility]-Rotavirus Vaccines Aged Out No lo nger eligible based on patient's age to complete this topic Insurance [employer]SEL[employer] Care Teams Cemetery Laborer Relationship Specialty Start Date End Date Crow Monge MD [address] [facility] [address] [place] [address] PCP - General 12/30/20
--- OUTSIDE RECORDS SUMMARY | 2024-07-29 10:44 | XMS_ITS | Encounter Summary ---
Author Organization Healthcare Address [address] [place] [id number] Care Team Providers Care Critical Care Nurse Specialist Name Role Phone Unavailable Primary Care Provider Unavailabl e Encounter Details Date Type Department Care Team ([facility] st Contact Info) Description 10/17/2016 Legacy AEHR Vitals Encounter [facility] OUTPATIENT CONVERSIONS [address] [place] [address] ProviderJoel MD [address] [place], [place] [id number] Social History Tobacco Use Types Packs/Day Years Used Date Smoking Tobacco: Never Assessed Comments Unknown Sex and Gender Information Value Date Recorded Sex Assigned at Not on file Legal Sex Female 8:25 PM EDT Gender Identity Not on file Sexual Orientation Not on file documented as of this encounter Last Filed Vital Signs Vital Sign Reading Time Taken Comments Blood Pressure - - Pulse - - Temperature - - Respiratory Rate - - Oxygen Saturation - - Inhaled Oxygen Concentration - - Weight 85.7 kg (189 lb) 10/17/2016 2:32 PM EST Height 167.6 cm (5' 6 ) 10/17/2016 2:32 PM EST Body Mass Index 30.51 10/17/2016 2:32 PM EST documented in this encounter Plan of Treatment Not on file documented as of this encounter Visit Diagnoses Not on filedocumented in this encounter
--- OUTSIDE RECORDS SUMMARY | 2024-07-29 10:44 | XMS_ITS | Encounter Summary ---
Author Organization Healthcare Address [address] [id number] Care Team Providers Care Fuse Assembler Name Role Phone Unavailable Primary Care Provider Unavailabl e Encounter Details Date Type Department Care Team ([facility] st Contact Info) Description 10/03/2016 Legacy AEHR Vitals Encounter [facility] OUTPATIENT CONVERSIONS [address] [place] [address] ProviderJoel MD [address] [place], [place] [id number] Social History Tobacco Use Types Packs/Day Years [...] - - Weight 85.7 kg (189 lb) 10/03/2016 1:51 PM EST Height 167.6 cm (5' 6 ) 10/03/2016 1:51 PM EST Body Mass Index 30.51 10/03/2016 1:51 PM EST documented in this encounter Plan of Treatment Not on file documented as of this encounter Visit Diagnoses Not on filedocumented in this encounter
== END 2024-07-29 23:59 | disposition home or self-care (01) ==
LOC: RAD 10:41
PROVIDERS: PCP Physician Assistant; Visit Provider Physician Assistant
DX: M25.561 Pain in right knee (principal)
CPT/HCPCS: 73562

== ENCOUNTER 2024-09-08 11:44 | Emergency (ER) | payer BC, SELFPAY ==
[2024-09-08 12:01] VITALS: BP 122/60; PULSE 76; RESP 18; TEMP 36.7; O2SAT 94; BMI 45.3
[2024-09-08 12:09] LABS: UTC Strep Screen (Rapid) Negative (Negative)
--- NOTE | 2024-09-08 12:26 | ED_ITS ---
Discharge Plan Disposition Patient Disposition: Home, Self-Care Condition: Good Prescriptions Prescriptions: New amoxicillin 875 mg tablet 875 mg PO Q12H Qty: 20 0RF benzonatate 100 mg capsule 100 mg PO TIDP PRN (Reason: Cough) Qty: 30 0RF methylprednisolone 4 mg Tablets,Dose Pack 4 mg PO DIRECTED 6 Days Qty: 21 0RF Rx Instructions: Take 1 pack as directed for 6 days No Action B12 Active 1,000 mcg tablet,chewable 1,000 mcg PO DAILY Slow Fe 142 mg (45 mg iron) tablet extended release 142 mg PO DAILY cetirizine [Zyrtec] 10 mg tablet 10 mg PO DAILY PRN atorvastatin 10 mg tablet 10 mg PO DAILY Patient Comments: TAKE 1 TABLET BY MOUTH ONCE DAILY FOR 30 DAYS cholecalciferol (vitamin D3) 50 mcg (2,000 unit) capsule 50 mcg PO DAILY lisinopril 5 mg tablet 5 mg PO DAILY levothyroxine [Synthroid] 50 mcg tablet 75 mcg PO DAILY paroxetine HCl 10 mg tablet 20 mg PO DAILY bupropion HCl 75 mg tablet 100 mg PO BID topiramate 100 mg tablet 200 mg PO HS 90 Days Qty: 180 3RF Nurtec ODT 75 mg tablet,disintegrating 75 mg PO ONCE PRN (Reason: migraine headache) Qty: 10 6RF Rx Instructions: Take 75 mg at onset of headache. Max dose 75 mg in 24 hours. Referrals Follow up/Referrals: Va Nieves PA [Primary Care Provider] - See instructions Activity Restrictions/Add. Instructions Additional Instructions/Restrictions: Drink plenty of fluids. Take tylenol or ibuprofen for pain or fever. Take the medications as directed. Follow up with your regular doctor. GO TO THE ER FOR ANY WORSENING SYMPTOMS Clinical Impressions Clinical Impression: Pharyngitis, Sinusitis, Otitis media, Acute viral syndrome Instructions Patient Instructions: Sinusitis, DI for Pharyngitis/Tonsillopharyngitis -- Adult, DI for Sinusitis Print Language Print Language: Japanese Discharge ED Provider: Jasper Sifuentes [facility] [place] H[place] General Stated complaint: sore throat, ear pain Mode of Arrival: Ambulatory Source of Information: Patient Time Seen by Provider: 09/08/24 12:18 Description of Symptoms (Recalled from Triage Doc. by RN): EAR PAIN, CONGESTION, THROAT HURTING HEENT Symptoms (Recalled from RN notes): Yes Resp Symptoms (Recalled from RN notes): Yes Skin Symptoms (Recalled from RN notes): No MS Symptoms (Recalled from RN notes): No Functional Status (Recalled from RN notes): WNL History of Present Illness Provider Complaint: She states that for the past 4 days she has had a very sore throat. She is also having bilateral ear pain and sinus congestion. She states that her nose has been very stopped up for the past 2 days. Related Data Home Medications ?Medication ?Instructions ?Recorded ?Confirmed lisinopril 5 mg tablet 5 mg PO DAILY 11/01/20 08/05/24 ferrous sulfate 142 mg (45 mg 142 mg PO DAILY 09/26/21 08/05/24 iron) tablet,extended release (Slow Fe) mecobalamin (vitamin B12) 1,000 1,000 mcg PO DAILY 09/26/21 08/05/24 mcg chewable tablet (B12 Active) levothyroxine 50 mcg tablet 75 mcg PO DAILY 05/29/22 08/05/24 (Synthroid) cetirizine 10 mg tablet (Zyrtec) 10 mg PO DAILY PRN 07/05/22 08/05/24 paroxetine HCl 10 mg tablet 20 mg PO DAILY 12/27/22 08/05/24 atorvastatin 10 mg tablet 10 mg PO DAILY 11/11/23 08/05/24 bupropion HCl 75 mg tablet 100 mg PO BID 11/11/23 08/05/24 cholecalciferol (vitamin D3) 50 50 mcg PO DAILY 11/11/23 08/05/24 mcg (2,000 unit) capsule Previous Rx's ?Medication ?Instructions ?Recorded rimegepant 75 mg disintegrating 75 mg PO ONCE PRN migraine 02/06/24 tablet (Nurtec ODT) headache #10 tabs topiramate 100 mg tablet 200 mg (2 x 100 mg) PO HS headache 03/18/24 prevention 90 days #180 tabs amoxicillin 875 mg tablet 875 mg PO Q12H #20 tabs 09/08/24 benzonatate 100 mg capsule 100 mg PO TIDP PRN Cough #30 caps 09/08/24 methylprednisolone 4 mg tablets in 4 mg PO DIRECTED 6 days #21 tabs 09/08/24 a dose pack Allergies Allergy/AdvReac Type Severity Reaction Status Date / Time meloxicam Allergy Mild Rash Verified 08/05/24 09:40 Worker's Comp Is this a Worker's Comp case?: No [facility] Disclaimer: The information contained in this section may have been updated after the patient was seen, as this information can be updated by other users. Medical History Chronic migraine without aura Significant improvement with Ajovy initially until denied by insurance and doing well on topiramate. 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 current occupational exposures/hazards: No caffeine: Yes Have you lived/traveled outside US in past 30 days?: No Contact w/someone who lives/traveled outside US past 30 days?: No Exposure to someone with infectious disease in past 14 days?: No Do you have a fever (greater than 100.4 F or 38 C)?: No Have you tested positive for COVID-19: No Exposed to someone with COVID-19 in past 14 days?: No Do you have a sore throat?: No Do you have a cough?: No Do you have any weakness?: No Do you have any diarrhea?: No Are you experiencing any unusual bleeding?: No Do you have any muscle aches/pain?: No Do you have any abdominal pain?: No Are you experiencing loss of taste or smell?: No ROS Obtained: Yes All systems reviewed & no additional complaints except as documented Constitutional Constitutional: Reports chills and Reports fever(s) Eyes Eyes: Denies eye discharge ENT Ears, Nose, Mouth, and Throat: Reports as per HPI Cardiovascular Cardiovascular: Denies chest pain Respiratory Respiratory: Denies chest congestion and Reports cough Gastrointestinal Gastrointestingal: Reports nausea; Denies abdominal pain, constipation, cramping, diarrhea or vomiting Musculoskeletal Musculoskeletal: Denies arthralgias Integumentary/Breasts Skin/Breast: Denies rash Neurologic Neurologic: Denies paresthesias Physical Exam General General appearance: alert and in no apparent distress Head Head exam: atraumatic, normocephalic and normal inspection Eye Eye exam: Present normal appearance; Absent PERRL or EOMI ENT ENT exam: Present mucous membranes moist and normal external ear exam Expanded ENT Exam TM/Canal exam: Bilateral TM: erythema, bulging and effusion Nose exam: Absent sinus tenderness Nasal speculum exam: Bilateral: normal Mouth exam: Present normal external inspection and other; Absent drooling Teeth exam: Present normal inspection Throat exam: Present tonsillar erythema and tonsillomegaly Neck Neck exam: Present normal inspection, full ROM and trachea midline; Absent tenderness, meningismus or lymphadenopathy Chest Chest inspection: Present normal inspection and symmetric chest wall rise; Absent tenderness Respiratory Respiratory exam: Present normal lung sounds bilaterally; Absent respiratory distress, wheezes or stridor Cardiovascular Cardiovascular exam: Present regular rate, normal rhythm and normal heart sounds; Absent tachycardia or irregular rhythm Abdominal Exam Abdominal exam: Present soft and normal bowel sounds; Absent distention, tenderness, guarding, rebound or rigidity Extremities Exam Extremities exam: Present normal inspection and normal capillary refill; Absent tenderness, joint swelling or calf tenderness Back Exam Back exam: Present normal inspection and full ROM; Absent tenderness, CVA tenderness (R) or CVA tenderness (L) Neurological Exam Neurological exam: Present alert, oriented X3, CN II-XII intact, normal gait and reflexes normal; Absent motor sensory deficit Psychiatric Psychiatric exam: Present normal affect and normal mood Skin Skin exam: Present warm, dry, intact and normal color Lymphatic Lymphatic Findings: no adenopathy Medical Decision Making Medical Records Medical records reviewed: No I reviewed the patient's medical records. Screening: Per USPSTF and CDC recommendations, given the prevalence of disease in our [facility], it is our hospital?s policy to screen for HIV and viral Hepatitis for all patients aged 18 and over and those with ongoing risk factors. Derek Inquiry Pt receiving controlled substance: No Vital Signs: 09/08/24 12:01 Temperature 98.1 F Temperature Source Oral Pulse Rate [Left Radial] 76 Respiratory Rate 18 Blood Pressure [Left Arm] 122/60 Blood Pressure Mean [Left Arm] 80 02 Sat by Pulse Oximetry 94 L Lab Data Lab results reviewed: Yes I reviewed the patient's lab results. Lab Results 09/08/24 12:00: Strep Scn Rapid Clinic Negative Orders (Tests/Meds): ORDERS Category Date Time Status Strep Screen Confirmation Stat Micro 09/08/24 12:00 Received
[2024-09-08 13:00] VITALS: BP 122/60; PULSE 76; RESP 18; TEMP 36.7
[2024-09-08 13:00] LABS: Coronavirus 19, PCR Not Detected (NotDetected); Influenza A, PCR Not Detected (NotDetected); Influenza B, PCR Not Detected (NotDetected)
== END 2024-09-08 13:00 | disposition home or self-care (01) ==
PROVIDERS: Emergency Provider Nurse Practitioner Family; PCP Physician Assistant
DX: B34.9 Viral infection, unspecified (principal); J02.9 Acute pharyngitis, unspecified; H66.90 Otitis media, unspecified, unspecified ear; J32.9 Chronic sinusitis, unspecified
CPT/HCPCS: 87636; 87880; 99214; G0381

== ENCOUNTER 2025-02-01 08:45 | Outpatient (CLI) | payer BC, SELFPAY ==
--- OUTSIDE RECORDS SUMMARY | 2024-09-24 06:30 | XMS_ITS ---
[facility] Address [address] [place] [id number] Care Team Providers Care Infantry Unit Leader Name Role Phone Shital Bella Primary Care Provider Va Nieves Unavailable [phone] Allergies Allergen (clinical drug ingredient) Drug/Non Drug Allergy documented on EMR Reaction Allergy Type Onset Date Status meloxicam Meloxicam rash, hives, itching Drug Allergy Active REASON FOR VISIT discuss meds and neurology appt Medications Medication SIG (Take, Route, Frequency, Duration) Notes Start Date End Date Status Ubrelvy 100 MG 1 tablet as needed, may take second dose at least 2 hours after first dose up to 2 tablets per day as needed Orally Once a day for 30 day(s) Active Topiramate ER 100 MG 1 cap(s) Orally Two times a day Active Slow Fe 142 (45 Fe) MG 1 tablet Orally o nce a day Active B-12 1000 MCG 1 tab(s) orally once a day 10/27/2020 Active Levothyroxine Sodium 75 MCG take 1 table t by mouth once daily for 90 days Orally once daily for 90 days Active Lisinopril 5 MG Take 1 tablet by patrick th once daily for 90 Active buPROPion HCl ER (SR) 100 MG 1 tab(s) or ally 2 times a day for 90 days Active Atorvastatin Calcium 10 MG 1 tablet Oral ly once daily for 90 days Active PARoxetine HCl 20 MG take 1 tablet by mo uth once daily Orally Once a day for 90 days Active Vitamin D3 1.25 MG (92392 UT) 1 capsule Orally Once a day 04/04/2023 Active Vital Signs Blood pressure systolic 114 mm Hg 09/24/19 25 Blood pressure diastolic 80 mm Hg 025 Heart Rate 62 /min 09/24/2024 Height 65 in 09/24/2024 Weight 280.0 lbs 09/24/2024 BMI 46.59 kg/m2 09/24/2024 Encounters Encounter Location Date Provider Diagnosis [facility] [address] [place] [id number] 09/24/2024 Va Nieves Depression with anxi ety F41.8 Assessments Encounter Date Diagnosis (ICD Code) Assessment Notes Treatment Notes Treatment Clinical Notes Section Notes 09/24/2024 Depression with anxiety (ICD-10 - F41.8) I reviewed Dr. Galindo's note recommending an SNRI or amitriptyline. The patient has tried and failed both Effexor and Cymbalta. She has not tried amitriptyline but she has failed numerous other psychiatric medications and her mood is stable on current medications. I would prefer to get genetic testing and have evaluation by Brianda Chirinos before changing medications. She is going to go from our office to Brianda's office to talk about getting the swab and set up an appt. Plan Of Treatment Treatment Notes Assessment Notes Depression with anxiety I reviewed Dr. Samara bennett's note recommending an SNRI or amitriptyline. The patient has tried and failed both Effexor and Cymbalta. She has not tried amitriptyline but she has failed numerous other psychiatric medications and her mood is stable on current medications. I would prefer to get genetic testing and have evaluation by Brianda Chirinos before changing medications. She is going to go from our office to Brianda's office to talk about getting the swab and set up an appt. Next Appt Details Follow Up: with Brianda Richardson ms, Reason: Progress Notes * RHETT NOVEMBERDOB:1970 (54 yo F)Acc No.[id number]:09/24/2024 Progress Notes Patient: Christina MURCIA NOVEMBER Provider: NAEEM Cameron :1970 A ge:53 Y S ex:Female Date:09/24/2024 Address:[facility] [place] , [id number] Pcp:Shital Bella Subjective: * Chief Complaints: * 1 . Discuss meds and neurology appt. * HPI: P sychology: The pt is here today to discuss changing her Depression medication. Pt states she saw Neurology yesterday and Dr Galindo is recommending she change her medication due to weight and not sleeping at night. Her note recommends an SNRI or amitriptyline. * ROS: D ERMATOLOGY: no R jc. n o H boris. G ASTROENTEROLOGY: no N ausea. n o V omiting. n o D iarrhea.? U ROLOGY: no D ifficulty urinating. n o B lood in urine. * Medical History: A nxiety, Cervical Cancer, Hypothyroidism, Depression, Psoriatic Arthritis, Hashimotos Thyroidits. * Surgical History: R T Ear Drum Replacement , Tonsillectomy , X 2 , Ear Tubes , Partial Hysterectomy , LT Carpal Tunnel Release , LT Knee Torn Ligament Repair , LEEP - due to cervical cancer , Repair of torn ligament-Dr. Welsh 09/23/2017, Spinal Stimulator - Nerve 04/2019. * Hospitalization/Major Diagno stic Procedure: [facility] - Asthma 06/30/2019. * Family History: F ather: 67 yrs, liver, lung and kidney cancer. M other: 70 yrs, Crohns.?1 brother(s) , 1 sister(s) . 1 son(s) , 2 daughter(s) . . * Social History: C URRENT TOBACCO USE: No . C affeine: yes, frequency: coffee and pepsi. Home smoke detector use: yes. Alcohol: No. * Medications: T aking Ubrelvy 100 MG Tablet 1 tablet as needed, may take second dose at least 2 hours after first dose up to 2 tablets per day as needed Orally Once a day , Taking Slow Fe 142 (45 Fe) MG Tablet Extended Release 1 tablet Orally once a day , Taking B-12 1000 MCG Tablet 1 tab(s) orally once a day , Taking Topiramate ER 100 MG Capsule ER 24 Hour Sprinkle 1 cap(s) Orally Two times a day , Taking Vitamin D3 1.25 MG (76173 UT) Capsule 1 capsule Orally Once a day , Taking Atorvastatin Calcium 10 MG Tablet 1 tablet Orally once daily , Taking PARoxetine HCl 20 MG Tablet take 1 tablet by mouth once daily Orally Once a day , Taking buPROPion HCl ER (SR) 100 MG Tablet Extended Release 12 Hour 1 tab(s) orally 2 times a day , Taking Levothyroxine Sodium 75 MCG Tablet take 1 tablet by mouth once daily for 90 days Orally once daily , Taking Lisinopril 5 MG Tablet Take 1 tablet by mouth once daily , Discontinued Medrol 4 MG Tablet Therapy Pack as directed orally daily , Discontinued Bromfed DM 2-30-10 MG/5ML Syrup 5-10 mL Orally four times a day, prn , Discontinued Amoxicillin-Pot Clavulanate 875-125 MG Tablet 1 tablet Orally every 12 hrs , Discontinued Wegovy 0.5 MG/0.5ML Solution Auto-injector 0.5 mL Subcutaneous once a week , Medication List reviewed and reconciled with the patient * Allergies: M eloxicam: rash, hives, itching. Objective: * Vitals: W t:280.0, Temp:98.3, BP:114/80, HR:62, Nurse:YENY, Ht: 65, BMI:46.59. * Examination: P sychology: General Appearance: N AD. Grooming : a dequate. Eye contact : n ormal. Mood : p leasant. Heart: R SR. Lungs: c lear to auscultation. Neurologic Exam: I ntact, gait normal. ? Assessment: * Assessment: 1. D epression with anxiety - F41.8 (Primary) Plan: * Treatment: * Procedure Codes: 3 074F SYST BP LT 130 MM HG, 3079F DIAST BP 80-89 MM HG * Follow Up: christina Chirinos * Billing Information: * Visit Code: 79758 Office Visit, Est Pt., Level 3. * Procedure Codes: 3074F SYST BP LT 130 MM HG. 3079F DIAST BP 80-89 MM HG. * Electronic signature of NAEEM Pal on 02/01/2025 at 08:49 AM EDT Sign off status: Pending * Provider: NAEEM Cameron Date: 0 09/24/2024 Generated for Haim dixon/Margo/Samantha on: 0 02/01/2025 08:49 AM EDT History and Physical Notes * Examination Category Sub-Category Detail Notes Category Not es Psychology Heart: RSR Lungs: clear to auscultatio n General Appearance: NAD Neurologic Exam: Intact, gait normal Grooming : adequate Eye contact : normal Mood : pleasant
--- OUTSIDE RECORDS SUMMARY | 2024-11-06 09:15 | XMS_ITS ---
[facility] Address [address] [place] [id number] Care Team Providers Care Greeting Card Maker Name Role Phone Shital Bella Primary Care Provider Va Nieves Unavailable [phone] Allergies Allergen (clinical drug ingredient) Drug/Non Drug [...] Once a day for 90 days Active Atorvastatin Calcium 10 MG 1 tablet Oral ly once daily for 90 days Active buPROPion HCl ER (SR) 100 MG 1 tab(s) or ally 2 times a day for 90 days Active Lisinopril 5 MG Take 1 tablet by patrick th once daily for 90 Active Levothyroxine Sodium 75 MCG take 1 table t by mouth once daily for 90 days Orally once daily for 90 days Active Vitamin D3 1.25 MG (46598 UT) 1 capsule Orally Once a day 04/04/2023 Active Topiramate ER 100 MG 1 cap(s) Orally Two times a day Active Ubrelvy 100 MG 1 tablet as needed, may take second dose at least 2 hours after first dose up to 2 tablets per day as needed Orally Once a day for 30 day(s) Active B-12 1000 MCG 1 tab(s) orally once a day 10/27/2020 Active Slow Fe 142 (45 Fe) MG 1 tablet Orally o nce a day Active Cefdinir 300 MG 1 cap(s) Orally Two times a day for 10 day(s) 11/06/2024 Active Vital Signs Blood pressure systolic 120 mm Hg 11/07/19 25 Blood pressure diastolic 76 mm Hg 025 Heart Rate 82 /min 11/06/2024 Height 65 in 11/06/2024 Weight 282.8 lbs 11/06/2024 BMI 47.06 kg/m2 11/06/2024 Encounters Encounter Location Date Provider Diagnosis [facility] [address] [place], [place] [phone] 11/06/2024 Va Nieves Strep pharyngitis J0 2.0 [...] 1 cap(s) Orally Two times a day for 10 day(s) 11/06/2024 Treatment Notes Assessment Notes Strep pharyngitis Rest, Fluids, tyleno l or motrin for fever, gargle with warm water or salt water, throw away toothbrush after a few days on the antibiotic Next Appt Details Follow Up: prn, Reason: Progress Notes * DELANEYNovemberDOB:1970 (54 yo F)Acc No.[id number]:11/06/2024 Progress Notes Patient: Priya MURCIANovember Provider: NAEEM Cameron :1970 A ge:53 Y S ex:Female Date:11/06/2024 Address:[facility] [place], [id number] Pcp:Shital Bella Subjective: * Chief Complaints: * [...] day , Taking Vitamin D3 1.25 MG (38955 UT) Capsule 1 capsule Orally Once a [...] Temp: 97.4, BP: 120/76, HR: 82, Nurse: [facility], Ht: 65, BMI:47.06. * Examination: E NT/Respiratory: General Appearance: N AD. Ears: a uditory canals normal bilaterally, TM's WNL. Nose : n ormal, no lesions, nares patent. Oral cavity : erythema without exudate on pharynx. Neck : n o cervical lymphadenopathy. Heart : R RR, normal S1 S2, no murmurs. Lungs: c lear to auscultation bilaterally. Assessment: * Assessment: 1. S trep pharyngitis [...] HG * Follow Up: p rn * Billing Information: * Visit Code: 79198 Office Visit, Est Pt., Level 3. * Procedure Codes: 10289 STREP A ASSAY W/OPTIC. Modifiers: QW 3074F SYST BP LT 130 MM HG. 3078F DIAST BP < 80 MM HG. * Electronic signature of NAEEM Pal on 02/01/2025 at 08:49 AM EDT Sign off status: Pending * Provider: NAEEM Cameron Date: 0 11/06/2024 Generated for Haim dixon/Margo/eTransmitting on: 0 02/01/2025 08:49 AM EDT History and Physical Notes * HPI [...]
--- OUTSIDE RECORDS SUMMARY | 2025-02-01 08:49 | XMS_ITS | Data Portability ---
Author Organization [facility] [place] [facility] Address [address] [facility] [address] [place] [address] Assessment Encounter Date Assessment Date Assessment LastModified by Organization Details LastModified Time 08/07/2018 08/07/2018 Complete PFTs today reveal a normal FEV1 to FVC ratio of 83%. FEV1 is 2.75 L or 94% predicted. FVC is 3.32 L or 93% predicted. There is a normal residual volume 88% and a normal total lung capacity of 106%. Diffusion lung capacity uncorrected for hemoglobin is normal at 88%. Not available 08/07/2018 12:10:22 Plan of Treatment Reminders Order Date Submit Date Provider Last Modified By Organization Details Last Modified Time Details Appointments None recorded. Lab None recorded. Referral None recorded. Procedures None recorded. Surgeries None recorded. Imaging None recorded. Medication Orders ProAir HFA 90 mcg/actua tion aerosol inhaler 2019 020 INTERFACE [facility], [address], [address], 0 11:51:59 Patient TargetsNo targets recorded. Patient Instructions Encounter Date Encounter Id Patient Instructions Last Modified By Organization Details Last Modified Time 08/07/2018 [id number] snoring: care instructions Not available 08/07/2018 12:09:42 When You Want to Lose Weight: Care Instructions Not available 08/07/2018 12:09:42 12/08/2019 [id number] the patient has requested and consented to a telehealth appointment today. Due to the current state of emergency, it is appropriate to address the patient's medical needs the [facility] appointment. Not available 12/08/2019 11:54:22 Reason for Referral None Reported. Results Created Date Observation Date Name Description Value Unit Range Abnormal Flag Note LastModifiedBy Organization Detail LastModifiedTime 09/08/19 19 09/04/2018 home sleep testi ng* No observ ation record ed. [email or web address] Not Available 2018 12:49:57 12/03/19 19 12/01/2018 CPAP compl iance * No observ ation record ed. [email or web address] Not Available 12/03 11:43:53 12/04/19 19 2018 CPAP compl iance * No observ ation record ed. [facility], [facility] [address], [address], 12/03/2018 16:09:07 Result Notes None recorded. Procedures Surgical History Date Name Laterality Status Provider Name and Address Organization Details Recorded Time 04/21/20 19 neurostimulation of spinal cord tissue completed Marisa Acevedo [facility] 12/08/2019 11:18:18 08/07/20 18 Airway Resistance completed [facility] 08/07/2018 10:02:53 08/07/20 18 Diffusion Capacity completed [facility] 08/07/2018 10:02:50 08/07/20 18 Lung Volumes, Plethysmography completed [facility] 08/07/2018 10:02:52 08/07/20 18 Spirometry completed [facility] 08/07/2018 10:02:49 08/07/20 18 Pulse Oximetry completed [facility] 08/07/2018 10:02:58 Imaging Results None recorded. Procedure Notes Documentation Provider Name and Address Organization Details Recorded Time [address] [place] [address] HOME SLEEP STUDY REPORT NAME: Valerie Guardado DATE: 09/04/2018 CLINIC INDICATIONS: Valerie Guardado is a 47-year-old F with Loud, nightly snoring. excessive daytime sleepiness and nonrestorative sleep. A suspicion of JEAN CLAUDE was raised and a home sleep study was suggested and performed. SUMMARY: Mrs. Guardado underwent an overnight polysomnogram using a home study device with the recording of, nasal airflow, respiratory effort, continuous pulse oximetry, and pulse rate. The study began at 10:50:44 PM. The patient was monitored for a total of 490.5 minutes, out of which the patient slept for 490.0 minutes. Sleep efficiency was 99.9%. The study ended at 7:01:14 AM. During the study there were a total of 17 apneas that occurred for an apnea index of 2.1 /hour of sleep. There were a total of 235 hypopneas that occurred for a hypopnea index of 28.8 /hour of sleep. A total of 252 apnea and hypopneas were observed during the analysis period as follows: 17 obstructive apneas, 0 central apneas, 0 mixed apneas, and 235 hypopneas for an apnea/hypopnea index (AHI) of 30.9 /hour of sleep. Jose Hameed was not observed. During this time 230 desaturations occurred during the study. Desaturations were based on 4% or greater drop from baseline. The lowest SaO2 was 74% with an average of 90%. The minimum SpO2 value associated with a respiratory event was 74%. The patient snored during sleep. The average pulse rate during sleep was 77.6 bpm. The highest pulse rate during sleep was 124 bpm. The highest pulse rate during recording was 124 bpm. Guardado, November PAGE TWO IMPRESSION: Obstructive sleep apnea, severe. She had 17 apneas and 235 hypopneas. Her overall AHI is 30.9, supine 30.0 (rarely slept supine), nonsupine 30.9. She snored for 78% of the time during sleep. She had moderate oxygen desaturation down to 74%. RECOMMENDATIONS: per BRAXTON Schulte [facility] 09/10/2018 15:25:43 Medical Equipment None Reported. Allergies Allergen ID Allergen Name Allergen Category Reaction Reaction Severity Criticality Documentation Date Start Date Code Code System Note Provider Name and Address Organization Details Recorded Time 107987 meloxicam medicatio n Not available Not available Not available 08/07/2018 88254 RxNorm Tarah Mendoza [facility] 8 09:52:18 Medications Name Sig Start Date Stop Date Status Note LastModified by Organization Details LastModified Time Celexa 10 mg tablet Take 3 tablets every day by oral route. active Not Available Not Available No t Available fluticasone propionate 50 mcg/actuatio n nasal spray,suspen edith active Not Available Not Available Not Available duloxetine 30 mg capsule,suad yed release active Not Available Not Available Not Available duloxetine 60 mg capsule,suad yed release active Not Available Not Available Not Available Lyrica 75 mg capsule Take 1 capsule twice a day by oral route. active Not Available Not Available No t Available Lyrica 150 mg capsule active Not Available Not Available N ot Available levothyroxin e active Not Available Not Available Not Available ProAir HFA 90 mcg/actuatio n aerosol inhaler Inhale 2 puffs every 4 hours by inhalation route as needed. 2019 active Not Available Not Available Not Avai lable Vitals Date Recorded Body height Body mass index (BMI) Body weight Respiratory rate Oxygen saturation Oxygen saturation in Arterial blood by Pulse oximetry Heart rate Systolic blood pressure Diastolic blood pressure Provider Name and Address Organization Details Last Updated DateTime 9 165.1 cm 41.6 kg/m2 244624. 09 g 16 /min 95 % 95 % 97 /min 132 mm[Hg] 72 mm[Hg] Apolonia Olguin [facility] 9 15:09:00 Date Recorded Body weight Body mass index (BMI) Body height Heart rate Oxygen saturation Oxygen saturation in Arterial blood by Pulse oximetry Respiratory rate Systolic blood pressure Diastolic blood pressure Provider Name and Address Organization Details Last Updated DateTime 8 707881. 68 g 41.8 kg/m2 165.1 cm 93 /min 97 % 97 % 16 /min 138 mm[Hg] 76 mm[Hg] Tarah Mendoza [facility] 8 09:52:05 Social History Question Answer Notes LastModified by Organizat ion Details LastModified Time Tobacco Smoking Status Former Smoker Tarah Mendoza [facility] 08/07/2018 09:55:01 When Did You Quit Smoking? 1-5yearssinc elastcigaret te [email or web address] Information not available 08/07/2018 What Was The Date Of Your Most Recent Tobacco Screening? 2018 Information n ot available 10/06/2019 How Much Tobacco Do You Smoke? 2 PPD [email or web address] Information not available 08/07/2018 How Many Years Have You Smoked Tobacco? 22 [email or web address] Information not available 08/07/2018 Sex: Unknown Functional Status Question Answer Note LastModified by Organization D etails LastModified Time What is your level of alcohol consumption? None [email or web address] Information not available 08/07/2018 What is your exercise level? None Information not available 08/07/2018 Mental Status None recorded. Family History Relationship Description Onset Age of this Age Resolved Age Notes LastModified by Organization Details LastModified Time Father Chronic obstructive pulmonary disease [email or web address] Not available 08/07 09:53:16 Father Family history of malignant neoplasm [email or web address] Not available 08/07 09:53:22 Father Heart disease [email or web address] Not available 08/07 09:53:29 Mother Heart disease [email or web address] Not available 08/07 09:53:37 Medical History No medical history recorded. Gynecological HistoryNo gynecological history recorded. Obstetrics History GPAL:G 0 P 0 0 0 0 Past Encounters Encounter ID Performer Location Encounter Start Date Encounter Closed Date Diagnosis/Indication Diagnosis SNOMED-CT Code Diagnosis ICD10 Code Diagnosis Note [id number] GARY GAYTAN PA-C [facility] [address] [facility], [address] [place] [id number] 08/07/2018 09:34:15 08/07/2018 12:15:51 Snoring 21968555 R06.83 Loud, nightly snoring. Excessive daytime sleepiness and nonrestora tive sleep. Obtain home sleep study to evaluate for the presence of sleep-diso rdered breathing. Patient is agreeable to home sleep study at this time. She'll be contacted once results are available. I've advised the patient to never drive while drowsy. Dyspnea on exertion 6084 5006 R06.09 Onset after having weight gain after an ankle injury. Pulmonary function testing today is normal. I have also reviewed spirometry performed at her family practice office which also reveals no evidence of obstructiv e or restrictiv e lung disease. She also has several symptoms consistent with obstructiv e sleep apnea. This fatigue and nonrestora tive sleep may be causing some exacerbate d shortness of breath throughout the day. Encouraged the patient that once she is cleared for exercise to work towards weight loss. Morbid obesity 256016576 E66.01 BMI 41.8 today. The patient's weight gain began after she required surgery for a fractured ankle. She remains very sedentary because she continues to have difficulty with her knee and ankle. She is being evaluated for these issues currently. Ex-smoker 7736938 Z87.89 1 40-pack-ye ar history of tobacco abuse. The patient completed smoking cessation 3 years ago. Currently, she is not a candidate for annual low-dose CT chest for lung nodule screening secondary to her age. [id number] [facility] [address] [place] [address] 09/04/2018 14:17:27 09/04/2018 14:26:49 [id number] GARY GAYTAN PA-C PUL[facility]ARY [address] [facility], [address] [place], [place] [address] 2018 14:21:43 2018 16:53:11 Obstructive sleep apnea of adult 2613187687 103 G47.33 severe JEAN CLAUDE with a baseline AHI of 30.9. She started CPAP therapy with an AutoPap range of 6-16 cm. CPAP compliance report will be requested. She does not have her CPAP Chip with her today. Any necessary changes will be made. At this time, I believe that she is still adjusting to her CPAP. She does start some difficulty tolerating the device. She has tried 3 different masks and most recently had the most success with the mask the covers both her nose and mouth. She will be contacted with CPAP compliance report is available and notified of any necessary changes. Advised patient never drivable drowsy. [id number] GARY GAYTAN PA-C PULMONARY [facility] [facility], [address] [place] [address] 12/08/2019 11:11:59 12/08/2019 13:56:01 Obstructive sleep apnea of adult [id number] 103 G47.33 severe JEAN CLAUDE with a baseline AHI of 30.9. CPAP compliance will be requested from her DME. Recommende d she try some over-the-c ounter melatonin to see if this helps with her sleep. Would recommend she follow up with her PCP for any further medication s if this is not helpful. Advised patient of spinal hangover effect. Advised to take the melatonin on a night where she can get a full 8 hours of sleep and does not have to drive early the next morning. Follow-up on an annual basis unless changes are indicated from her compliance . Ex-smoker 4585991 Z87.89 1 40-pack-ye ar history of tobacco abuse. The patient completed smoking cessation 3 years ago. Currently, she is not a candidate for annual low-dose CT chest for lung nodule screening secondary to her age. Health Concerns Section Related Observation LastModified by Organization Detai ls LastModified Time None Recorded Concern Status LastModified by Organization Details LastModified Time None Recorded Advance Directives Directive None Recorded Payers Insurance Date Sequence Insurance Name Policy Number Policy Jones Covered Member ID Jones Member ID Guarantor Name 07/13/2020 1 [employer] [id number] Valerie Guardado [id number] November Geo 07/13/2020 1 [place] [id number] Brett Guardado [id number] November Geo Notes Date Note Type Note Provider Name and Address Organization Details Recorded Time 08/07/2018 text/html Mrs. Guardado is a 47-year-old female who presents to the office today for abnormal pulmonary function testing. She is being seen at the request of Va Nieves PA-C. Today, patient reports that she has dyspnea on exertion when climbing a flight of stairs. She reports that she feels as if she breathes hard. In addition, she reports a very rare cough and fatigue. She also reports loud, nightly snoring and nonrestorative sleep. She reports that her dyspnea with exertion has worsened since about November. Around that time, the patient did fracture her left ankle and required surgery. She has been unable to work since that time and has had significant weight gain. She denies any fever, night sweats, sputum production, hemoptysis or wheezing. She does have a 85-wvup-wpld history of tobacco abuse with complete smoking cessation 3 years ago. She denies any recent imaging of her chest. She is concerned about her respiratory status because her father had COPD and lung cancer. He was also a smoker. GARY GAYTAN PA-C [address] [place] [address], [phone], [facility] 08/07/2018 12:10:28 2018 text/html Mrs. Guardado is a 48 show female presents to the office today for 60-90 to follow-up. She started CPAP within the stated timeframe. Today, she reports that her has noticed she sleeps much better when wearing CPAP. She does not have any snoring. She however mentions that she still does not feel consistently rested upon awakening. She will often occasionally remove her mask in the mornings because she has a difficult time tolerating CPAP. She often feels as if the pressure is too high. She does report some dry mouth which is improved since she increased the humidity level. GARY GAYTAN PA-C [address] [place], [address], [facility] 2018 16:42:28 12/08/2019 text/html Mrs. Guardado is a 49-year-old who is seen via telehealth today for one-year sleep recheck. Today, she reports doing well with her CPAP. She does report having some recent difficulty hawing asleep. She has not tried anything [id number]. She denies any known snoring. She denies any dry eyes, mouth or nose. She denies any morning headaches. She is requesting a refill of her albuterol inhaler. GARY GAYTAN PA-C [address] [place], [address], [facility] 12/08/2019 11:55:10 OBGyn Episode No OBEpisode recorded.
--- OUTSIDE RECORDS SUMMARY | 2025-02-01 08:49 | XMS_ITS | Clinical Summary ---
Author Organization Healthcare Address [address] [place] [address] Care Team Providers Care Occupational Safety Specialist Name Role Phone Crow Monge MD Primary Care Provider [phone] Allergies Active Allergy Reactions Criticality Noted Date Comments Meloxicam Rash,Unknown - Patie nt states they do not know rxn details Low 06/13/2018 Medications buPROPion SR (Wellbutrin SR) 100 MG 12 hr tablet Take 1 tablet (100 mg) by mouth 2 (two) times a day. 2 Active levothyroxine (Synthroid, Levoxyl) 75 MCG tablet 2 Active lisinopril 5 MG tablet Take 1 tablet (5 mg) by mouth daily. 2 Active PARoxetine (Paxil) 10 MG tablet Take 10 mg by mouth 1 (one) time each day. 2 Active Nurtec 75 MG tablet dispersible DISSOLVE 1 TABLET BY MOUTH EVERY OTHER DAY FOR EPISODIC MIGRAINE. MAX DAILY DOSE OF 75MG PER DAY 2 Active topiramate (Topamax) 100 MG tablet Take 2 tablets (200 mg) by mouth nightly. 2 Active mirabegron ER (Myrbetriq) 25 MG tablet Take 25 mg by mouth. Active cyanocobalamin 500 MCG tablet Take 1 tablet (500 mcg) by mouth daily. Active atorvastatin (Lipitor) 10 MG tablet Take 1 tablet (10 mg) by mouth daily. Active Ubrelvy 100 MG tablet TAKE 1 TABLET BY MOUTH NEEDED FOR MIGRAINE. IF SYMPTOMS PERSIST, MAY REPEAT ONCE IN 2 HOURS Active PARoxetine (Paxil) 20 MG tablet Take 1 tablet (20 mg) by mouth daily. Active Ferrous Sulfate Dried ER (Slow Release Iron) 45 MG tablet controlled-relea se Take 45 mg of iron by mouth daily. Active cholecalciferol (Vitamin D-3) 250 MCG (23173 UT) capsule Take 1 capsule (10,000 Units) by mouth daily. Active Atogepant (Qulipta) 60 MG tablet Take 60 mg by mouth daily. Active Active Problems Problem Noted Date Diagnosed Date Class III obesity with body mass index (BMI) of 40.0 or higher 10/23/2024 Encounters Date Type Department Care Team Description 11/30/2024 3:00 PM EDT Procedure Visit [facility] Interventional Pain Medicine [address] [place] [address] Florentino Mckeon DO Chronic pain of right knee; Chronic pain of left knee 11/30/2024 Orders Only External Location [address] [place] [address] Provider, External 11/30/2024 Travel from Last 3 Months Social History Tobacco Use Types Packs/Day Years [...] Sign Reading Time Taken Comments Blood Pressure 121/77 11/30/2024 3:35 PM EDT Pulse 68 11/30/2024 3:35 PM EDT Temperature 36.9 C (98.4 F) 11/30/2024 2:54 PM EDT Respiratory Rate 18 11/30/2024 3:35 PM EDT Oxygen Saturation 97% 11/30/2024 3:35 PM EDT Inhaled Oxygen Concentration - - Weight 124 kg (274 lb) 11/30/2024 2:54 PM EDT Height 167.6 cm (5' 6 ) 11/30/2024 2:54 PM EDT Body Mass Index 44.22 11/30/2024 2:54 PM EDT Plan of Treatment Upcoming Encounters Date Type Department Care Team (Late st Contact Info) Description 02/24/2025 10:00 AM EDT Office Visit [facility] Interventional Pain Medicine [address] [place] [address] Florentino Mckeon DO [address] [facility] [address] [place] [address] Health Maintenance Due Date Last Done Comments [facility]-Depression Screening 1972 [facility]-HIV Screening 1972 [facility]-Hepatitis C Screening 1972 [facility]-Infant/Child/Adol SDOH Screenings 1972 [facility]- SDOH Screenings 1990 [facility]-Adult SDOH Screenings 1990 [facility]-Hepatitis B Vaccines (1 of 3 - 19+ 3-dose series) 12/03/1991 CT Colonography 2017 Colonoscopy 2017 FIT-DNA 2017 FIT 2017 FOBT 2017 Sigmoidoscopy 2017 [facility]-Colorectal Cancer Screening 2017 [id number] Vaccine (3 - Pfizer risk series) 01/17/2021 12/20/2020, 11/29/2020 [facility]-Breast Cancer Screening 2022 [facility]-Pneumococcal Vaccine: 50 + Years (1 of 1 - PCV) 2022 [facility]-Influenza Vaccine (Seaso n Ended) 2025 05/03/2023, 06/01/2022, 05/28/2021 [facility]-DTaP,Tdap,and Td Vaccine s (2 - Td or Tdap) 10/26/2030 10/26/2020 [facility]-Zoster Vaccines Completed 07/05/2023, 05/03/2023 [facility]-Obesity Intervention Completed 025, 10/21/2024, 06/13/2022 HPV Vaccines Aged Out No longer eligi ble based on patient's age to complete this topic [facility]-HIB Vaccines Aged Out No longer e [...] on patient's age to complete this topic Procedures Procedure Name Priority Date/Time Associated Diagnosis Comments POC ULTRASOUND 11/30/2024 from Last 3 Months Results * POC Imaging (11/30/2024) Anatomical Region Laterality Modality Pelvis Other 11/30/2024 us External Provider IMG POINT OF CARE ULTRASOUND F inal Result from Last 3 Months Insurance [facility] Marko Alvarez [place] [id number] [facility] Care Teams Occupational Safety Specialist Relationship Specialty Start Date End Date Crow Monge MD [address] [facility] [address] [place] [address] PCP - General 12/30/20
--- OUTSIDE RECORDS SUMMARY | 2025-02-01 08:49 | XMS_ITS | Encounter Summary ---
Author Organization [facility]atives Address [address] [place] [address] Care Team Providers Care Police Officer Crime Prevention Name Role Phone Va Nieves Primary Care Provider [phone] Reason for Referral * Ultrasound (Routine) - Closed Specialty Diagnoses / Procedures Referred By Kenn butt Referred To Contact Diagnoses Autoimmune thyroiditis Procedures Ultrasound head neck soft tissue Kathi Kendrick APRN [address] [place] [address] Phone: tel: fax: Referral ID Status Reason Start Date Expiration Date Visits Re quested Visits Authorized [id number] Closed 06/05/2024 06/05/2025 1 1 Encounter Details Date Type Department Care Team (Late st Contact Info) Description 06/05/2024 Outside Orders [facility] Central Scheduling [address] [place] [address] Kathi Kendrick APRN [address] [place] [address] Autoimmune thyroiditis (Primary Dx) Social History Tobacco Use Types Packs/Day Years Used Date Smoking Tobacco: Never Assessed Interpersonal Safety Answer Date Record ed Family or friends hurt you Not on file 06/08 Family or friends insult you Not on file Family or friends threaten you Not on file 1 Family or friends scream or curse at you Not on file 06/08/2024 Food Insecurity Answer Date Recorded Food run out past 12 months Not on file 05/20 Food did not last past 12 months Not on file 06/08/2024 Employment Answer Date Recorded Help finding and keeping a job Not on file 1 Family and Community Support Answer Osman e Recorded Help with Day to Day Activities Not on file 06/08/2024 Feeling Lonely or Isolated Not on file 06/08 Educational Attainment Answer Date Abhi rded Speak language other than Puerto Rican at home Not on file 06/08/2024 Want help with school or training Not on file 06/08/2024 Depression Answer Date Recorded PHQ-2 Risk Not on file 06/08/2024 Disabilities Answer Date Recorded Difficulty concentrating Not on file 024 Difficulty doing errands alone Not on file 1 Substance Use Answer Date Recorded Used prescription meds for non-medical reasons N ot on file 06/08/2024 Used illegal drugs past 12 months Not on file 06/08/2024 Comments Unknown Sex and Gender Information Value Date Recorded Sex Assigned at Female 02/13/2022 8:47 PM CDT Legal Sex Female 8:47 PM CDT Gender Identity Female 02/13/2022 8:47 PM CDT Sexual Orientation Not on file documented as of this encounter Plan of Treatment Not on file documented as of this encounter Results * Ultrasound head neck soft tissue (06/12/2024 3:04 PM EDT) Anatomical Region Laterality Modality Head, Neck Ultrasound 06/13/2024 10:5 1 AM EDT Impressions 06/13/2024 7:46 PM EDT Mildly heterogeneous thyroid parenchyma is nonspecific and can be seen with hypothyroidism. Recommend correlation clinically. Images reviewed, interpreted, and dictated by Dr. Chris Perry. Transcribed by Kelley Mcmillan PA-C. Narrative 06/13/2024 7:46 PM EDT THYROID ULTRASOUND HISTORY: Hypothyroidism. PROCEDURE: Ultrasound images of the thyroid were obtained. FINDINGS: The right lobe of the thyroid measures 1.4 x 3.9 x 1.3 cm. It is mildly heterogeneous without dominant nodule. Left lobe of the thyroid measures 1.2 x 3.8 x 1.2 cm. It is also mildly heterogeneous without dominant nodule. Procedure Note Chris Perry MD - 06/13/2024 THYROID ULTRASOUND HISTORY: Hypothyroidism. PROCEDURE: Ultrasound images of the thyroid were obtained. FINDINGS: The right lobe of the thyroid measures 1.4 x 3.9 x 1.3 cm. It is mildly heterogeneous without dominant nodule. Left lobe of the thyroid measures 1.2 x 3.8 x 1.2 cm. It is also mildly heterogeneous without dominant nodule. IMPRESSION: Mildly heterogeneous thyroid parenchyma is nonspecific and can be seen with hypothyroidism. Recommend correlation clinically. Images reviewed, interpreted, and dictated by Dr. Chris Perry. Transcribed by Kelley Mcmillan PA-C. us Kathi Kendrick PROP ATTENDANT IMG US ORDERABLES Paola l Result documented in this encounter Visit Diagnoses Diagnosis Autoimmune thyroiditis- Primary Autoimmune thyroiditis documented in this encounter Care Teams Police Officer Crime Prevention Relationship Specialty Start Date End Date Va Nieves PA [address] [place] [address] PCP - General Physician Retinal Angiographer 06/10/24 documented as of this encounter
--- OUTSIDE RECORDS SUMMARY | 2025-02-01 08:49 | XMS_ITS | Referral Summary ---
Author Organization [facility] Address [address] [place] [address] Care Team Providers Care Adoption Manager Name Role Phone Va Nieves Primary Care Provider [phone] Social History Tobacco Use Types Packs/Day Years [...] Date Abhi rded Speak language other than Micronesian at home Not on file 06/08/2024 Want [...] PM CDT Sexual Orientation Not on file Plan of Treatment Not on file Insurance BLUE CROSS/BLUE SHIELD Care Teams Adoption Manager Relationship Specialty Start Date End Date Va Nieves PA [address] [place] [address] PCP - General Physician Ground Hel[employer] 06/10/24
--- OUTSIDE RECORDS SUMMARY | 2025-02-01 08:49 | XMS_ITS | Encounter Summary ---
Author Organization Healthcare Address [address] [place] [address] Care Team Providers Care Clinical Phlebotomist Name Role Phone Crow Monge MD Primary Care Provider [phone] Encounter Details Date Type Department Care Team (Late st Contact Info) Description 11/30/2024 Orders Only External Location [address] [place] [address] Provider, External Social History Tobacco Use Types Packs/Day Years [...] as of this encounter Plan of Treatment Upcoming Encounters Date Type Department Care Team (Late st Contact Info) Description 02/24/2025 10:00 AM EDT Office Visit [facility] Interventional Pain Medicine [address] [facility] [place] [address] Florentino Mckeon S, DO [address] [facility] [address] [place] [address] documented as of this encounter Procedures Procedure Name Priority Date/Time Associated Diagnosis Comments POC ULTRASOUND 11/30/2024 documented in this encounter Results * POC Imaging (11/30/2024) Anatomical Region Laterality Modality Pelvis Other 11/30/2024 us External Provider IMG POINT OF CARE ULTRASOUND F inal Result documented in this encounter Visit Diagnoses Not on filedocumented in this encounter Additional Health Concerns Assessment Noted Time A fall risk assessment has been complete d for the patient 11/30/2024 2:55 PM EDT A Body Mass Index follow-up plan has been documented for the patient 11/30/2024 4:08 PM EDT documented as of this encounter Care Teams Clinical Phlebotomist Relationship Specialty Start Date End Date Crow Monge MD [address] [place] [address] PCP - General 12/30/20 documented as of this encounter
--- OUTSIDE RECORDS SUMMARY | 2025-02-01 08:49 | XMS_ITS | Clinical Summary ---
Author Organization [facility] Address [address] [place] [address] Care Team Providers Care Grease Cup Filler Name Role Phone Va Nieves Primary Care Provider [phone] Social History Tobacco Use Types Packs/Day Years [...] Date Abhi rded Speak language other than Somali at home Not on file 06/08/2024 Want [...] Orientation Not on file Plan of Treatment Health Maintenance Due Date Last Done Comments CT Colonography 1972 Colonoscopy 1972 Colorectal Cancer Screening 1972 FOBT/FIT 1972 Fit-DNA (Cologuard) 1972 Sigmoidoscopy 1972 Depression Screening (12+) 1984 Tobacco Cessation Counseling and Screening (12+) 1984 HIV Screening 12/03/1987 Hepatitis C Screening 1990 Pap Smear 1993 Breast Cancer Screening 2012 Lipid Panel 2017 Pneumococcal 50+ years (1 of 1 - PCV) 2022 COVID-19 VACCINE (3 - season) 04/19/202411/2020, 11/29/2020 Influenza Vaccine (Season Ended) 2025 05/03/20 DTAP/TDAP/TD VACCINES (2 - Td or Tdap) 10/26/2030 Shingles Vaccine (Zoster) Completed 07/05/2023, Insurance BLUE CROSS/BLUE SHIELD Care Teams Grease Cup Filler Relationship Specialty Start Date End Date Va Nieves PA [address] [place] [address] PCP - General Physician Distribution Field Technician 06/10/24
--- OUTSIDE RECORDS SUMMARY | 2025-02-01 08:50 | XMS_ITS | Patient Health Record ---
Author Organization [facility] Address [address] [facility] [address] [facility] [address] [place] [id number] Care Team Providers Care Front Office Agent Name Role Phone Shital Bella Primary Care Provider [phone] Va Nieves Unavailable [phone] Allergies Allergen (clinical drug ingredient) Drug/Non Drug Allergy documented on EMR Reaction Allergy Type Onset Date Status meloxicam Meloxicam rash, hives, itching Drug Allergy Active Results Component Value Reference Range Notes Rapid Strep- Inhouse Reviewed date:11/06/2024 05:05:24 PM Interpretation:pos Performing Lab: Notes/Report: pos strep test pos CBC Venipuncture (in house) Reviewed date:04/22/2024 01:12:11 PM Interpretation: Performing Lab: Notes/Report: wbc 6.6 3.5 - 10 lymph 33.7% 15 - 50 mid 6.0% 2 - 15 gran 60.3% 35 - 80 rbc 5.08 3.5 - 5.5 hgb 14.3 11.5 - 16.5 hct 43.6 35 - 55 mcv 85.8 75 - 100 mch 28.2 25 - 35 mchc 32.8 31 - 38 platlet 331 100 - 400 P-Comprehensive Metabolic Pa itz (CMP) Reviewed date:04/23/2024 08:32:13 AM Interpretation: Performing Lab: Notes/Report: Test performed by [facility] [facility] , [address], [place] [address] Epi Boyce MD, Calender Feeder CLIA: [id number] Sodium 140 135-145 mmol/L Potassium 4.2 3.5-5.3 mmol/L Chloride 106 97-108 mmol/L CO2 24 22-32 mmol/L Glucose 91 65-99 mg/dL BUN 9 6-20 mg/dL Creatinine 0.88 0.50-1.00 mg/dL Calcium 9.6 8.6-10.4 mg/dL eGFR by Creatinine 79 >59 mL/min/1.73m2 Protein 7.2 6.0-8.3 g/dL Albumin 4.6 3.5-5.3 g/dL Alkaline Phosphatase 113 35-121 IU/L ALT (SGPT) 19 <5-47 IU/L AST (SGOT) 13 <5-40 IU/L Bilirubin, Total 0.6 <0.2-1.2 mg/dL A/G Ratio 1.8 1.1-2.5 P-T4 Free (thyroxine) Reviewed date:04/23/2024 08:32:13 AM Interpretation: Performing Lab: Notes/Report: Test performed by [facility] [address] [place] [address] , [address], [place] [address] Epi Boyce MD, Calender Feeder CLIA: [id number] Thyroxine Free (free T4) 0.89 0.86-1.76 ng/dL P-Lipid Panel Reviewed date:04/23/2024 08:32:13 AM Interpretation: Performing Lab: Notes/Report: Test performed by [facility] [address] [place] [address] , [address], [place] [address] Epi Boyce MD, Calender Feeder CLIA: [id number] Cholesterol 176 <200 mg/dL Triglycerides 129 <150 mg/dL HDL Cholesterol 46 >39 mg/dL Cholesterol / HDL Ratio 3.83 0.00-4.44 Ratio Non-HDL Cholesterol 130 <130 mg/dL LDL Cholesterol (Calculation) 104 <130 mg/dL LDL Cholesterol Levels* Less than 100 mg/dL Optimal 100 to 129 mg/dL Near Optimal/ Above Optimal 130 to 159 mg/dL Borderline High 160 to 189 mg/dL High 190 mg/dL and above Very High * Categories as recommended by the 2004 ATPIII guidelines LDL/HDL Ratio 2.3 <3.3 Ratio LDL Cholesterol Patient History Test Date: 04/22/2024 LDL Results: 104 Units: mg/dL % Change: - P-TSH Reviewed date:04/23/2024 08:32:13 AM Interpretation: Performing Lab: Notes/Report: Test performed by [facility] [address] [place] [address] , [place] [address] Epi Boyce MD, Calender Feeder CLIA: [id number] TSH 4.92 0.43-5.25 mU/L P-Vitamin D 25-Hydroxy Reviewed date:04/23/2024 08:32:13 AM Interpretation: Performing Lab: Notes/Report: Test performed by [facility] [address] [place] [address] [address] [id number] Epi Boyce MD, Calender Feeder CLIA: [id number] Vitamin D 25-Hydroxy 46.0 30.0-100.0 ng/mL Interpretation of Vitamin D 25 [place]: < 20 ng/mL - Deficiency 20 - 29 ng/mL - Insufficiency 30 - 100 ng/mL - Sufficiency > 100 ng/mL - Super-therapeutic- toxicity may occur above this level. Clinical correlation required. Influenza Screen (in house) Reviewed date:07/23/2024 01:14:23 PM Interpretation:neg Performing Lab: Notes/Report: neg results neg CBC Fingerstick (in house) Reviewed date:07/23/2024 01:14:30 PM Interpretation: Performing Lab: Notes/Report: wbc 6.2 3.5 - 10 lym 44.6 15 - 50 mid 8.1 2 - 15 gran 47.3 35 - 80 rbc 4.77 3.5 - 5.5 hgb 13.7 11.5 - 16.5 hct 40.7 35 - 55 mcv 85.3 75 - 100 mch 28.7 25 - 35 mchc 33.6 31 - 38 plat 189 100 - 400 Covid test (in house) Reviewed date:07/23/2024 12:33:13 PM Interpretation:pos Performing Lab: Notes/Report: pos Result: pos X ray : Knee, right Reviewed date:07/30/2024 11:56:11 AM Interpretation:nothing acute Performing Lab: Notes/Report: nothing acute Reason For Referral Diagnosis 1 ROSE positive (R76.8) [facility] Referring Provider First Name Va Referring Provider Last Name Lizbeth Referring Provider Speciality Physician Mentally Impaired Teacher Referred Provider Rheumatology, . Referred Provider Specialty Rheumatology General Notes Va Nieves 2023 11:44:14 AM > Needs an appt with Dr. Ellsworth, please send previous lab kaden labs and our previous arthritis panel results, Albertina Brasher 04/23/2024 8:50:05 AM > submiited through Rheumatology website Referral Priority Routine Diagnosis 1 Pain, joint, knee, r ight (M25.561) [facility] Referring Provider First Name Va Referring Provider Last Name Lizbeth Referring Provider Speciality Physician Mentally Impaired Teacher Referred Provider Fili Chao Referred Provider Specialty Orthopedic S urgery General Notes Albertina Brasher 024 3:28:08 PM > 08/05/2024 at 09:30am; patient informed Referral Priority Routine Medications Medication SIG (Take, Route, Frequency, Duration) Notes Start Date End Date Status Vitamin D3 1.25 MG (99832 UT) 1 capsule Orally Once a day 04/04/2023 Active Topiramate ER 100 MG 1 cap(s) Orally Two times a day Active buPROPion HCl ER (SR) 100 MG Take 1 tabl et by mouth twice daily for 90 Active Atorvastatin Calcium 10 MG 1 tablet Oral ly once daily for 90 days Active PARoxetine HCl 20 MG Take 1 tablet by mo uth once daily for 90 Active Cefdinir 300 MG 1 cap(s) Orally Two times a day for 10 day(s) 11/06/2024 Active Lisinopril 5 MG Take 1 tablet by patrick th once daily for 90 Active Levothyroxine Sodium 75 MCG take 1 table t by mouth once daily for 90 days Orally once daily for 90 days Active Ubrelvy 100 MG 1 tablet as needed, may take second dose at least 2 hours after first dose up to 2 tablets per day as needed Orally Once a day for 30 day(s) Active B-12 1000 MCG 1 tab(s) orally once a day 10/27/2020 Active Slow Fe 142 (45 Fe) MG 1 tablet Orally o nce a day Active Immunizations Vaccine Route Administration Date Status Comme nts COVID 19 Pfizer Unknown 11/29/2020 Administered COVID 19 Pfizer Unknown 12/20/2020 Administered Flublok IM Intramuscular 05/24/2020 Administered Fluzone Quad (6months&older) IM Intramuscular 06/01/2022 Administered Fluzone Quad (6months&older) IM Intramuscular 04/22/2024 Administered Shingrix Unknown 05/03/2023 Administered Shingrix Unknown 07/05/2023 Administered Tetanus Tdap-Adacel (over 7yrs) IM Intramuscular 10/26/2020 Administered xFluzone (6mos and older)-trivalent Unknown 05/28/2021 Administered Problems Problem Type SNOMED Code ICD Code Onset Dates Problem Status W/U Status Risk Notes Problem 234753657 Hypothyroidism (acquired) (E03.9) Active confirmed Problem 80229699 Vitamin D deficiency (E55.9) Active confirmed Problem 85898559 Essential hypertension (I10) Active confirmed Problem 084740431 Depression with anxiety (F41.8) Active confirmed Problem 314290129 Morbid (severe) obesity due to excess calories (E66.01) Active confirmed Problem 343395528 Mixed hyperlipidemia (E78.2) Active confirmed Problem 53200761 Other chronic pa in (G89.29) Active confirmed Problem 897915752 Chronic pain syndrome (G89.4) Active confirmed Problem 721057665 Lumbago with sciatica, left side (M54.42) Active confirmed Problem 941733386 Neuropathy (G62.9) Active confirmed Problem Mild intermitten t asthma without complication (J45.20) Active confirmed Problem 318173160 Leukocytosis, unspecified type (D72.829) Active confirmed Problem 331111347427906 Carpal tunnel syndrome of left wrist (G56.02) Active confirmed Problem 608288174 Psoriatic arthritis (L40.50) Active confirmed Problem 14401162 Chronic sinusiti s, unspecified location (J32.9) Active confirmed Problem 02796684 Monet's thyroiditis (E06.3) Active confirmed Problem 444353164 Seasonal allergi c rhinitis due to other allergic trigger (J30.89) Active confirmed Problem 72775035 Chronic idiopath ic constipation (K59.04) Active confirmed Problem 833207678 S/P ankle ligame nt repair (Z98.890) Active confirmed Problem 42133357 Vision problems (H54.7) Active confirmed Problem 330347282 Body mass index [BMI] 45.0-49.9, adult (Z68.42) Active confirmed Problem 4995763 Urinary incontinence, nocturnal enuresis (N39.44) Active confirmed Problem 930031511878080 Pain, joint, kne e, right (M25.561) Active confirmed Vital Signs Heart Rate 82 /min 11/06/2024 Blood pressure diastolic 76 mm Hg 11/06/2024 Height 65 in 11/06/2024 Blood pressure systolic 120 mm Hg 11/06/2024 Weight 282.8 lbs 11/06/2024 BMI 47.06 kg/m2 11/06/2024 Encounters Encounter Location Date Provider Diagnosis [facility] [address] [facility] [address] [id number] 04/22/2024 Va Nieves Acute otitis media w ith effusion of left ear H65.192 ; Non-recurrent acute serous otitis media of right ear H65.01 ; ROSE positive R76.8 ; Depression with anxiety F41.8 ; Hypothyroidism (acquired) E03.9 ; Essential hypertension I10 ; Mixed hyperlipidemia E78.2 ; Hot flashes R23.2 and Vitamin D deficiency E55.9 [facility] [address] [facility] [address] [id number] 06/04/2024 Va Nieves Morbid (severe) obes ity due to excess calories E66.01 ; Body mass index [BMI] 45.0-49.9, adult Z68.42 ; Psoriatic arthritis L40.50 ; Monet's thyroiditis E06.3 and Essential hypertension I10 [facility] [address] [place], [place] [id number] 07/23/2024 Va Nieves COVID-19 U07.1 ; Rig ht knee pain, unspecified chronicity M25.561 and Acute otitis media with effusion of left ear H65.192 [facility] [address] [place], [place] [id number] 09/24/2024 Va Crowluh Depression with anxi ety F41.8 [facility] [address] [place], [place] [id number] 11/06/2024 Va Lizbeth Strep pharyngitis J0 2.0 [facility] [address] [place], [place] [id number] 03/02/2024 Shital Bella [facility] [address] [place], [place] [id number] 03/16/2024 Shital Bella Depression with anxi ety F41.8 [facility] [address] [place], [place] [id number] 04/23/2024 Va Crowdy [facility] [address] [place], [place] [id number] 07/30/2024 Shital Bella Morbid (severe) obes ity due to excess calories E66.01 [facility] [address] [place], [place] [id number] 07/30/2024 Va Crowluh Pain, joint, knee, r ight M25.561 and Acute pain of right knee M25.561 [facility] [address] [place], [place] [id number] 08/05/2024 Shital Bella [facility] [address] [place], [place] [id number] 08/20/2024 Shital Bella Hypothyroidism (acquired) E03.9 [facility] [address] [place], [place] [id number] 10/09/2024 Va Nieves Assessments Encounter Date Diagnosis (ICD Code) Assessment Notes Treatment Notes Treatment Clinical Notes Section Notes 03/16/2024 Depression with anxiety (ICD-10 - F41.8) 04/22/2024 Acute otitis media with effusion of left ear (ICD-10 - H65.192) 04/22/2024 Non-recurrent acute serous otitis media of right ear (ICD-10 - H65.01) 06/04/2024 Morbid (severe) obesity due to excess calories (ICD-10 - E66.01) 06/04/2024 Body mass index [BMI] 45.0-49.9, adult (ICD-10 - Z68.42) 07/23/2024 Right knee pain, unspecified chronicity (ICD-10 - M25.561) 07/23/2024 COVID-19 (ICD-10 - U07.1) Fluids, rest, supportive measures for fever and symptoms relief, discussed covid vitamins and isolation period. 07/30/2024 Morbid (severe) obesity due to excess calories (ICD-10 - E66.01) 07/30/2024 Acute pain of right knee (ICD-10 - M25.561) 07/30/2024 Pain, joint, knee, right (ICD-10 - M25.561) 08/20/2024 Hypothyroidism (acquired) (ICD-10 - E03.9) 09/24/2024 Depression with anxiety (ICD-10 - F41.8) [...] the swab and set up an appt. 11/06/2024 Strep pharyngitis (ICD-10 - J02.0) Rest, Fluids, tylenol or motrin for fever, gargle with warm water or salt water, throw away toothbrush after a few days on the antibiotic 07/23/2024 Acute otitis media with effusion of left ear (ICD-10 - H65.192) 06/04/2024 Psoriatic arthritis (ICD-10 - L40.50) 04/22/2024 ROSE positive (ICD-10 - R76.8) 04/22/2024 Depression with anxiety (ICD-10 - F41.8) 06/04/2024 Monet's thyroiditis (ICD-10 - E06.3) 06/04/2024 Essential hypertension (ICD-10 - I10) 04/22/2024 Hypothyroidism (acquired) (ICD-10 - E03.9) 04/22/2024 Essential hypertension (ICD-10 - I10) 04/22/2024 Mixed hyperlipidemia (ICD-10 - E78.2) 04/22/2024 Hot flashes (ICD-10 - R23.2) 04/22/2024 Vitamin D deficiency (ICD-10 - E55.9) Plan Of Treatment Pending Test Test Name Order Date MRI : Shoulder, left, without contrast 0 12/12/2022 Mammogram 10/26/2020 Insurance Providers Payer Name Payer Address Payer Phone Subscriber Number Group Number Insured Name Patient Relationship to Insured Coverage Start Date Coverage End Date [facility] [employer] [address] [place] [address] [id number] November Self - patient is the insured Medical (General) History Medical History History ICD Code Anxiety Cervical Cancer Hypothyroidism Depression Psoriatic Arthritis Hashimotos Thyroidits Surgical History Surgery Date(Month/Year) RT Ear Drum Replacement Tonsillectomy X 2 Ear Tubes Partial Hysterectomy LT Carpal Tunnel Release LT Knee Torn Ligament Repair LEEP -due to cervical cancer Repair of torn ligament-Dr. Welsh 09/23 Spinal Stimulator - Nerve 04/2019 Hospitalization History Reason Date(Month/Year) [facility] ER - Asthma 06/30/2019
[2025-02-01 09:27] LABS: Basophils # 0.1 K/mm3 (0-0.2); Basophils % 0.6 % (0.1-2.0); Eosinophils # 0.2 Kmm3 (0.0-0.4); Eosinophils % 2.4 % (0.1-12.0); Hematocrit 40.1 % (37.0-47.0); Hemoglobin 13.1 g/dL (12.2-16.2); Immature Granulocytes # 0.03 10^3uL; Immature Granulocytes % 0.4 %; Lymphocytes # 2.3 K/mm3 (0.7-4.5); Lymphocytes % 28.5 % (10-50); Mean Corpuscular HGB Conc 32.7 g/dL (31.8-35.4); Mean Corpuscular Hemoglobin 28.4 pg (27.0-31.2); Mean Platelet Volume 9.4 fl (7.4-10.4); Monocytes # 0.4 K/mm3 (0.1-1.0); Monocytes % 4.9 % (1.7-9.3); Neutrophils # 5.1 K/mm3 (1.8-7.8); Neutrophils % 63.2 % (37.0-80.0); Nucleated Red Blood Cells # 0 10^3/uL; Nucleated Red Blood Cells % 0 %; Platelet Count 297 K/mm3 (142-424); Red Blood Count 4.61 M/mm3 (4.20-5.40); Red Cell Distribution Width 15.3 % (11.5-17.5)
[2025-02-01 09:52] LABS: Erythrocyte Sedimentation Rate 18 mm/hr (0-30)
[2025-02-01 10:15] LABS: Albumin Level 4.1 g/dl (3.5-5.0); Chloride 109 mmol/L (98-107); Sodium 140 mmol/L (136-145)
[2025-02-01 10:16] LABS: Potassium 4.2 mmoL/L (3.5-5.1)
[2025-02-01 10:18] LABS: Alanine Aminotransferase 19 U/L (12-78); Alkaline Phosphatase 99 U/L (38-126); Anion Gap 11.2 mEq/L (5-15); Aspartate Amino Transferase 20 U/L (14-36); Bilirubin,Total 0.5 mg/dl (0.2-1.3); Blood Urea Nitrogen 9 mg/dl (7-17); Carbon Dioxide 24 mmol/L (22.0-30.0); Estimated Glomerular Filt Rate 66 ml/min (>60); GFR (African American) 80 ML/MIN (>60)
[2025-02-01 10:19] LABS: Albumin/Globulin Ratio 1.4 (1.1-1.8); Calcium 9.2 mg/dl (8.4-10.2); Glucose 105 mg/dl (74-100); Total Protein,Serum 7.1 g/dl (6.3-8.2)
[2025-02-01 10:25] LABS: C-Reactive Protein 14.1 mg/L (0-4)
== END 2025-02-01 23:59 | disposition home or self-care (01) ==
LOC: LAB 08:47
PROVIDERS: Nurse Practitioner Gerontology; PCP Physician Assistant; Visit Provider Nurse Practitioner Women's Health
DX: D84.821 Immunodeficiency due to drugs (principal); L40.59 Other psoriatic arthropathy; L40.9 Psoriasis, unspecified
CPT/HCPCS: 36415; 80053; 85025; 85651; 86140

== ENCOUNTER 2025-03-10 12:00 | Outpatient (CLI) | payer BC, SELFPAY ==
--- OUTSIDE RECORDS SUMMARY | 2024-11-06 09:15 | XMS_ITS ---
[facility] Address [address] [place] [phone] Care Team Providers Care Yoga Teacher Name Role Phone Shital Bella Primary Care Provider [phone] Va Nieves Unavailable [phone] Allergies Allergen (clinical drug ingredient) Drug/Non Drug Allergy documented on EMR Reaction Allergy Type Onset Date Status meloxicam Meloxicam rash, hives, itching Drug Allergy Active Results Component Value Reference Range Notes Rapid Strep- Inhouse Reviewed date:11/06/2024 05:05:24 PM Interpretation:pos Performing Lab: Notes/Report: pos strep test pos REASON FOR VISIT sore throat ear pain Medications Medication SIG (Take, Route, Frequency, Duration) Notes Start Date End Date Status PARoxetine HCl 20 MG take 1 tablet by mo uth once daily Orally Once a day; Duration: 90 days Active Atorvastatin Calcium 10 MG 1 tablet Oral ly once daily; Duration: 90 days Active buPROPion HCl ER (SR) 100 MG 1 tab(s) or ally 2 times a day; Duration: 90 days Active Lisinopril 5 MG Take 1 tablet by patrick th once daily; Duration: 90 Active Levothyroxine Sodium 75 MCG take 1 table t by mouth once daily for 90 days Orally once daily; Duration: 90 days Active Vitamin D3 1.25 MG (98866 UT) 1 capsule Orally Once a day 04/04/2023 Active Topiramate ER 100 MG 1 cap(s) Orally Two times a day Active Ubrelvy 100 MG 1 tablet as needed, may take second dose at least 2 hours after first dose up to 2 tablets per day as needed Orally Once a day; Duration: 30 day(s) Active B-12 1000 MCG 1 tab(s) orally once a day 10/27/2020 Active Slow Fe 142 (45 Fe) MG 1 tablet Orally o nce a day Active Cefdinir 300 MG 1 cap(s) Orally Two times a day; Duration: 10 day(s) 11/06/2024 Active Vital Signs Weight 282.8 lbs 11/06/2024 Blood pressure systolic 120 mm Hg 11/07/19 25 Blood pressure diastolic 76 mm Hg 025 Heart Rate 82 /min 11/06/2024 Height 65 in 11/06/2024 BMI 47.06 kg/m2 11/06/2024 Encounters Encounter Location Date Provider Diagnosis [facility] [address] [facility] [address] [place], [place] [address] [phone] 11/06/2024 Va Nieves Strep pharyngitis J0 2.0 Assessments Encounter Date Diagnosis (ICD Code) Assessment Notes Treatment Notes Treatment Clinical Notes Section Notes 11/06/2024 Strep pharyngitis (ICD-10 - J02.0) Rest, Fluids, tylenol or motrin for fever, gargle with warm water or salt water, throw away toothbrush after a few days on the antibiotic Plan Of Treatment Medication Medication Name Sig Start Date Stop Date Notes Cefdinir 300 MG 1 cap(s) Orally Two times a day; Duration: 10 day(s) 11/06/2024 Treatment Notes Assessment Notes Strep pharyngitis Rest, Fluids, tyleno l or motrin for fever, gargle with warm water or salt water, throw away toothbrush after a few days on the antibiotic Next Appt Details Follow Up: prn, Reason: Progress Notes * DELANEYNovemberDOB:1970 (54 yo F)Acc No.[id number]:11/06/2024 Progress Notes Patient: Priya MURCIANovember Provider: NAEEM Cameron :1970 A ge:53 Y S ex:Female Date:11/06/2024 Address:[facility] [place] [facility] Pcp:Shital Bella Subjective: * Chief Complaints: * 1 . Sore throat ear pain. * HPI: E NT/respiratory: 53 year old female presents with c/o sore throat P t sts her throat and ears have been hurting since last Saturday. Pt sts she tried using some OTC medications, but sts nothing has helped. Pt sts she is just now starting to get her voice back. c/o ear pain. Denies : cough. D enies : Fever. * ROS: D ERMATOLOGY: no R jc. [...] 04/2019. * Hospitalization/Major Diagno stic Procedure: H ER - Asthma 06/30/2019. * Family History: [...] day , Taking Vitamin D3 1.25 MG (87105 UT) Capsule 1 capsule Orally Once a [...] 1 tablet by mouth once daily , Medication List reviewed and reconciled with the patient * Allergies: M eloxicam: rash, hives, itching. Objective: * Vitals: W t: 282.8, Temp: 97.4, BP: 120/76, HR: 82, Nurse: fe, Ht: 65, BMI:47.06. * Examination: E NT/Respiratory: General Appearance: N AD. E ars: a uditory canals normal bilaterally, TM's WNL. N ose : n ormal, no lesions, nares patent. O ral cavity :? erythema without exudate on pharynx. N shonna : n o cervical lymphadenopathy. H eart : RRR, normal S1 S2, no murmurs. L ungs: c lear to auscultation bilaterally. ? Assessment: * Assessment: 1. S trep pharyngitis - J02.0 (Primary) Plan: * Treatment: Value Reference Range s trep test pos Notes: Rest, Fluids, tylenol or motrin for fever, gargle with warm water or salt water, throw away toothbrush after a few days on the antibiotic?? * Procedure Codes: 8 7880 STREP A ASSAY W/OPTIC, Modifiers: QW , 3074F SYST BP LT 130 MM HG, 3078F DIAST BP < 80 MM HG * Follow Up: p rn * Images: Billing Information: * Visit Code: 96113 Office Visit, Est Pt., Level 3. * Procedure Codes: 96609 STREP A ASSAY W/OPTIC. Modifiers: QW 3074F SYST BP LT 130 MM HG. 3078F DIAST BP < 80 MM HG. * Electronic signature of NAEEM Pal on 03/10/2025 at 12:02 PM EDT Sign off status: Pending * Provider: NAEEM Cameron Date: 0 11/06/2024 Generated for Haim dixon/Margo/Kaylynsmitting on: 0 03/10/2025 12:02 PM EDT History and Physical Notes * HPI (History of Present Illness) Category Sub-Category Detail Notes Category Not es ENT/respiratory sore throat Pt sts her throa t and ears have been hurting since last Saturday. Pt sts she tried using some OTC medications, but sts nothing has helped. Pt sts she is just now starting to get her voice back ear pain cough Fever Examination Category Sub-Category Detail Notes Category Not es ENT/Respiratory Oral cavity : erythema without exudate on pharynx Ears: auditory canals norm al bilaterally, TM's WNL Neck : no cervical lymphade nopathy Heart : RRR, normal S1 S2, n o murmurs Lungs: clear to auscultatio n bilaterally General Appearance: NAD Nose : normal, no lesions, nares patent
--- OUTSIDE RECORDS SUMMARY | 2025-03-03 10:05 | XMS_ITS ---
Author Organization [facility] Address [address] [place] [id number] Care Team Providers Care Solar Energy Specialist Name Role Phone Shital Bella Primary Care Provider [phone] Va Nieves Unavailable [phone] Allergies Allergen (clinical drug ingredient) Drug/Non Drug Allergy documented on EMR Reaction Allergy Type Onset Date Status meloxicam Meloxicam rash, hives, itching Drug Allergy Active REASON FOR VISIT constipation Medications Medication SIG (Take, Route, Frequency, Duration) Notes Start Date End Date Status Cefdinir 300 MG 1 cap(s) Orally Two times a day; Duration: 10 day(s) 11/06/2024 Active buPROPion HCl ER (SR) 100 MG Take 1 tablet by mouth twice daily; Duration: 90 Active Linzess 72 MCG 1 capsule at least 3 0 minutes before the first meal of the day on an empty stomach Orally Once a day; Duration: 30 days 03/03/2025 Active PARoxetine HCl 20 MG Take 1 tablet by mo uth once daily; Duration: 90 Active Atorvastatin Calcium 10 MG Take 1 tablet by mouth once daily; Duration: 90 Active Lisinopril 5 MG Take 1 tablet by patrick th once daily; Duration: 90 Active B-12 1000 MCG 1 tab(s) orally once a day 10/27/2020 Active Topiramate ER 100 MG 1 cap(s) Orally Two times a day Active Vitamin D3 1.25 MG (75366 UT) 1 capsule Orally Once a day 04/04/2023 Active Levothyroxine Sodium 75 MCG take 1 table t by mouth once daily for 90 days Orally once daily; Duration: 90 days Active Tremfya 100 MG/ML 1 mL Subcutaneous Active Ubrelvy 100 MG 1 tablet as needed, may take second dose at least 2 hours after first dose up to 2 tablets per day as needed Orally Once a day; Duration: 30 day(s) Active Slow Fe 142 (45 Fe) MG 1 tablet Orally o nce a day Active Vital Signs Weight 283.2 lbs 03/03/2025 Blood pressure systolic 124 mm Hg 03/03/20 25 Blood pressure diastolic 62 mm Hg 025 Heart Rate 75 /min 03/03/2025 Height 65 in 03/03/2025 BMI 47.12 kg/m2 03/03/2025 Encounters Encounter Location Date Provider Diagnosis [facility] [address] [place] [id number] 03/03/2025 Va Nieves Chronic constipation K59.09 Assessments Encounter Date Diagnosis (ICD Code) Assessment Notes Treatment Notes Treatment Clinical Notes Section Notes 03/03/2025 Chronic constipation (ICD-10 - K59.09) Likely has a fecal impaction. She is going to try a suppository and if that doesn't work she will try an enema at home. Will also start on linzess. Plan Of Treatment Medication Medication Name Sig Start Date Stop Date Notes Linzess 72 MCG 1 capsule at least 3 0 minutes before the first meal of the day on an empty stomach Orally Once a day; Duration: 30 days 03/03/2025 Treatment Notes Assessment Notes Chronic constipation Likely has a fecal impaction. She is going to try a suppository and if that doesn't work she will try an enema at home. Will also start on linzess. Next Appt Details Follow Up: prn, Reason: Progress Notes * RHETT NOVEMBERDOB:1970 (54 yo F)Acc No.[id number]:03/03/2025 Progress Notes Patient: Priya MURCIA NOVEMBER Provider: NAEEM Cameron :1970 A ge:54 Y S ex:Female Date:03/03/2025 Address:[facility] [address] [id number] Pcp:Shital Bella Subjective: * Chief Complaints: * 1 . Constipation. * HPI: G astroenterology: 54 year old female presents with c/o Constipation P t states that she has not had a bowel movement for 2 weeks. Pt states that she been having stomach pain all the time. Pt states that she has tried Miralax and Magnesium Citrate and neither of these worked for her . * ROS: D ERMATOLOGY: no R jc. [...] yes. Alcohol: No. * Medications: T aking Tremfya 100 MG/ML Solution Prefilled Syringe 1 mL Subcutaneous , Taking Ubrelvy 100 MG Tablet 1 tablet as [...] day , Taking Vitamin D3 1.25 MG (52148 UT) Capsule 1 capsule Orally Once a day , Taking Levothyroxine Sodium 75 MCG Tablet take 1 tablet by mouth once daily for 90 days Orally once daily , Taking Lisinopril 5 MG Tablet Take 1 tablet by mouth once daily , Taking Cefdinir 300 MG Capsule 1 cap(s) Orally Two times a day , Taking buPROPion HCl ER (SR) 100 MG Tablet Extended Release 12 Hour Take 1 tablet by mouth twice daily , Taking PARoxetine HCl 20 MG Tablet Take 1 tablet by mouth once daily , Taking Atorvastatin Calcium 10 MG Tablet Take 1 tablet by mouth once daily , Medication List reviewed and reconciled with the patient * Allergies: M eloxicam: rash, hives, itching. Objective: * Vitals: W t: 283.2, Temp: 98.1, BP: 124/62, HR: 75, Nurse: pe, Ht: 65, BMI:47.12. * Examination: G eneral Examination: General Appearance: N AD. C hest: n ormal shape and expansion. H eart: R SR. L ungs: c lear to auscultation. A bdomen: b owel sounds present, soft, no guarding or rigidity, diffusely tender. Assessment: * Assessment: 1. C hronic constipation - K59.09 (Primary) Plan: * Treatment: * Follow Up: p rn * Images: Billing Information: * Visit Code: 55564 Office Visit, Est Pt., Level 3. * Procedure Codes: * Electronic signature of NAEEM Pal on 03/10/2025 at 12:02 PM EDT Sign off status: Pending * Provider: NAEEM Cameron Date: 03/03/2025 Generated for aHim dixon/Margo/Giovanyitting on: 03/10/2025 12:02 PM EDT History and Physical Notes * HPI (History of Present Illness) Category Sub-Category Detail Notes Category Not es Gastroenterology Constipation Pt states that she has not had a bowel movement for 2 weeks. Pt states that she been having stomach pain all the time. Pt states that she has tried Miralax and Magnesium Citrate and neither of these worked for her Examination Category Sub-Category Detail Notes Category Not es General Examination Heart: RSR Lungs: clear to auscultatio n Abdomen: bowel sounds present , soft, no guarding or rigidity, diffusely tender General Appearance: NAD Chest: normal shape and exp ansion
--- NOTE | 2025-03-10 12:03 | XR_ITS ---
FINAL REPORT CLINICAL HISTORY: CHRONIC CONSTIPATION COMPARISON: None FINDINGS: A single view of the abdomen was obtained. There is a normal bowel gas pattern. Thoracic spinal stimulator is present. Surgical clips are noted in the central pelvis. No abnormal radiopacities are seen in the abdomen. IMPRESSION: Unremarkable exam. Reviewed, Interpreted and Dictated by Leroy Jackson MD Transcribed by Shanel Nicholas Authenticated and [facility]
--- OUTSIDE RECORDS SUMMARY | 2025-03-10 12:03 | XMS_ITS | Clinical Summary ---
Author Organization [employer] ([place], [place], [place], [place]) Address [address] [place] [address] Care Team Providers Care Compliance Auditor Name Role Phone Va Nieevs Primary Care Provider [phone] Social History Tobacco Use Types Packs/Day Years Used Date Smoking Tobacco: Never Assessed Food Insecurity Answer Date Recorded Food run [...] Date Abhi rded Speak language other than Italian at home Not on file 06/08/2024 Want help with school or training Not on file 06/08/2024 Substance Use Answer Date Recorded Used prescription [...] (3 - season) 04/19/202411/2020, 11/29/2020 Influenza Vaccine (#1) 2025 05/03/2023 DTAP/TDAP/TD VACCINES (2 - Td or Tdap) 10/26/2030 Shingles Vaccine (Zoster) Completed 07/05/2023, Insurance BLUE CROSS/BLUE SHIELD Care Teams Compliance Auditor Relationship Specialty Start Date End Date Va Nieves PA [address] [place], [place] [address] PCP - General Physician Fiberglass Fabricator 06/10/24
--- OUTSIDE RECORDS SUMMARY | 2025-03-10 12:03 | XMS_ITS | Encounter Summary ---
Author Organization [employer] ([place], [place], [place], [place]) Address [address] [place] [address] Care Team Providers Care Computer Systems Security Administrator Name Role Phone Va Nieves Primary Care Provider [phone] Reason for Referral * Ultrasound (Routine) - Closed Specialty Diagnoses / Procedures Referred By Kenn butt Referred To Contact Diagnoses Autoimmune thyroiditis Procedures Ultrasound head neck soft tissue Kathi Kendrick APRN [address] [place] [address] Phone: tel: fax: Referral ID Status Reason Start Date Expiration Date Visits Re quested Visits Authorized [id number] Closed 06/05/2024 06/05/2025 1 1 Encounter Details Date Type Department Care Team (Late st Contact Info) Description 06/05/2024 Outside Orders [facility] Central Scheduling [address] [place] [address] Kathi Kendrick APRN [address] [place] [address] Autoimmune thyroiditis (Primary Dx) Social History Tobacco [...] Feeling Lonely or Isolated Not on file 10/21 /2024 Educational Attainment Answer Date Abhi rded Speak language other than Danish at home Not on file 06/08/2024 Want [...] by Kelley Mcmillan PA-C. us Kathi Kendrick PRODUCT DESIGN ENGINEER IMG US ORDERABLES Paola l Result documented in this encounter Visit Diagnoses Diagnosis Autoimmune thyroiditis- Primary Autoimmune thyroiditis documented in this encounter Care Teams Computer Systems Security Administrator Relationship Specialty Start Date End Date Va Nieves PA [address] [place] [address] PCP - General Physician Senior Gl Accountant 06/10/24 documented as of this encounter
--- OUTSIDE RECORDS SUMMARY | 2025-03-10 12:03 | XMS_ITS | Patient Health Record ---
Author Organization [facility] Address [address] [facility] [address] [facility] [address] [place] [id number] Care Team Providers Care Irrigation Tax Assessor Collector Name Role Phone Shital Bella Primary Care Provider Va Nieves [phone] Allergies Allergen (clinical drug ingredient) Drug/Non Drug Allergy documented on EMR Reaction Allergy Type Onset Date Status meloxicam Meloxicam rash, hives, itching Drug Allergy Active Results Component Value Reference Range Notes Rapid Strep- Inhouse Reviewed date:11/06/2024 05:05:24 PM Interpretation:pos Performing Lab: Notes/Report: pos strep test pos P-Lipid Panel Reviewed date:04/23/2024 08:32:13 AM Interpretation: Performing Lab: Notes/Report: Test performed by [facility] [address] [place] [address] , [address], [place] [address] Epi Boyce MD, Ups Driver CLIA: [id number] Cholesterol 176 <200 mg/dL Triglycerides 129 <150 [...] Results: 104 Units: mg/dL % Change: - P-Comprehensive Metabolic Pa itz (CMP) Reviewed date:04/23/2024 08:32:13 AM Interpretation: Performing Lab: Notes/Report: Test performed by [facility], [address] , [facility], [place] [address] Epi Boyce MD, Ups Driver CLIA: [id number] Sodium 140 135-145 mmol/L Potassium 4.2 3.5-5.3 [...] 0.6 <0.2-1.2 mg/dL A/G Ratio 1.8 1.1-2.5 CBC Venipuncture (in house) Reviewed date:04/22/2024 01:12:11 [...] - 38 platlet 331 100 - 400 P-T4 Free (thyroxine) Reviewed date:04/23/2024 08:32:13 AM Interpretation: Performing Lab: Notes/Report: Test performed by [facility] [address] [place] [address] , [place] [address] Epi Boyce MD, Ups Driver CLIA: [id number] Thyroxine Free (free T4) 0.89 0.86-1.76 ng/dL P-TSH Reviewed date:04/23/2024 08:32:13 AM Interpretation: Performing Lab: Notes/Report: Test performed by [facility] [address] [place] [address] , [address], [place] [address] Epi Boyce MD, Ups Driver CLIA: [id number] TSH 4.92 0.43-5.25 mU/L P-Vitamin D 25-Hydroxy Reviewed date:04/23/2024 08:32:13 AM Interpretation: Performing Lab: Notes/Report: Test performed by [facility] [address] [place] [address] , [facility], [place] [address] Epi Boyce MD, Ups Driver CLIA: [id number] Vitamin D 25-Hydroxy 46.0 30.0-100.0 ng/mL Interpretation [...] Diagnosis 1 ROSE positive (R76.8) [facility] Referring Provider First Name Va Referring Provider Last Name Lizbeth Referring Provider Speciality Physician Supervisor Machine Workers Referred Provider Rheumatology, . Referred Provider Specialty Rheumatology General Notes Va Nieves 2023 11:44:14 AM > Needs an appt with Dr. Ellsworth, please send previous lab kaden labs and our previous arthritis panel results, Albertina Brasher 04/23/2024 8:50:05 AM > submiited through Rheumatology website Referral Priority Routine Diagnosis 1 Pain, joint, knee, r ight (M25.561) Referral [facility] Referring Provider First Name Va Referring Provider Last Name Lizbeth Referring Provider Speciality Physician Supervisor Machine Workers Referred Provider Fili Chao Referred Provider Specialty Orthopedic S urgery General Notes Albertina Brasher 024 3:28:08 PM > 08/05/2024 at 09:30am; patient informed Referral Priority Routine Medications Medication SIG (Take, Route, Frequency, Duration) Notes Start Date End Date Status B-12 1000 MCG 1 tab(s) orally once a day 10/27/2020 Active Topiramate ER 100 MG 1 cap(s) Orally Two times a day Active Linzess 72 MCG 1 capsule at least 3 0 minutes before the first meal of the day on an empty stomach Orally Once a day; Duration: 30 days Active Ubrelvy 100 MG 1 tablet as needed, may take second dose at least 2 hours after first dose up to 2 tablets per day as needed Orally Once a day; Duration: 30 day(s) Active Ondansetron 4 MG 1 tablet on the tong ue and allow to dissolve Orally every 8 hours, prn 03/04/2025 Active Atorvastatin Calcium 10 MG Take 1 tablet by mouth once daily Orally Once a day; Duration: 90 days Active Slow Fe 142 (45 Fe) MG 1 tablet Orally o nce a day Active Lisinopril 5 MG Take 1 tablet by patrick th once daily; Duration: 90 Active Vitamin D3 1.25 MG (62588 UT) 1 capsule Orally Once a day 04/04/2023 Active Levothyroxine Sodium 75 MCG take 1 table t by mouth once daily for 90 days Orally once daily; Duration: 90 days Active buPROPion HCl ER (SR) 100 MG Take 1 tablet by mouth twice daily; Duration: 90 days Active Methotrexate 2.5 MG 6 tab Orally once a week Active PARoxetine HCl 20 MG Take 1 tablet by mo uth once daily Orally Once a day; Duration: 90 days Active Tremfya 100 MG/ML 1 mL Subcutaneous Active Immunizations Vaccine Route Administration Date Status [...] Problem Status W/U Status Risk Notes Problem Hypothyroidism (69761299) Hypothyroidism (acquired) (E03.9) Active confirmed Problem Vitamin D deficiency (79449233) Vitamin D deficiency (E55.9) Active confirmed Problem Essential hypertension (39421966) Essential hypertension (I10) Active confirmed Problem Mixed anxiety and depressive disorder (254501133) Depression with anxiety (F41.8) Active confirmed Problem Morbid obesity (disorder) (866787372) Morbid (severe) obesity due to excess calories (E66.01) Active confirmed Problem Mixed hyperlipidemia (382836185) Mixed hyperlipidemia (E78.2) Active confirmed Problem Chronic pain (04238925) Other chronic pain (G89.29) Active confirmed Problem Chronic pain syndrome (680792799) Chronic pain syndrome (G89.4) Active confirmed Problem Sciatica (09658170) Lumbago with sciatica, left side (M54.42) Active confirmed Problem Neuropathy (855546841) Neuropathy (G62.9) Active confirmed Problem Mild intermittent asthma (077659500) Mild intermittent asthma without complication (J45.20) Active confirmed Problem Leukocytosis (867460843) Leukocytosis, unspecified type (D72.829) Active confirmed Problem Carpal tunnel syndrome of left wrist (066745574865270) Carpal tunnel syndrome of left wrist (G56.02) Active confirmed Problem Psoriatic arthritis (757071532) Psoriatic arthritis (L40.50) Active confirmed Problem Chronic sinusitis (37745652) Chronic sinusitis, unspecified location (J32.9) Active confirmed Problem Monet's thyroiditis (94737590) Monet's thyroiditis (E06.3) Active confirmed Problem Allergic rhinitis (52905242) Seasonal allergic rhinitis due to other allergic trigger (J30.89) Active confirmed Problem Chronic idiopathic constipation (80026345) Chronic idiopathic constipation (K59.04) Active confirmed Problem Postprocedural states (813428664) S/P ankle ligament repair (Z98.890) Active confirmed Problem Unexplained visual loss (disorder) (141953157) Vision problems (H54.7) Active confirmed Problem Body mass index 40+ - severely obese (429809088) Body mass index [BMI] 45.0-49.9, adult (Z68.42) Active confirmed Problem Nocturnal enuresis (6411556) Urinary incontinence, nocturnal enuresis (N39.44) Active confirmed Problem Pain, joint, knee, right (M25.561) Active confirmed Vital Signs Heart Rate 66 /min 03/10/2025 Blood pressure diastolic 70 mm Hg 03/10/2025 Height 65 in 03/10/2025 Blood pressure systolic 126 mm Hg 03/10/2025 Weight 280.6 lbs 03/10/2025 BMI 46.69 kg/m2 03/10/2025 Encounters Encounter Location Date Provider Diagnosis [facility] [address] [place], [place] [id number] 03/16/2024 Shital Bella Depression with anxi ety F41.8 [facility] [address] [place], [place] [id number] 04/23/2024 Va Jelanidy [facility] [address] [place], [place] [id number] 07/30/2024 Shital Bella Morbid (severe) obes ity due to excess calories E66.01 [facility] [address] [place], [place] [id number] 07/30/2024 Va Nieves Pain, joint, knee, r ight M25.561 and Acute pain of right knee M25.561 [facility] [address] [place], [place] [id number] 08/05/2024 Shital Bella [facility] [address] [place], [place] [id number] 08/20/2024 Shital Bella Hypothyroidism (acquired) E03.9 [facility] [address] [place], [place] [id number] 10/09/2024 Vasrinivas Nieves [facility] [address] [place], [place] [id number] 03/04/2025 Shital Bella [facility] [address] [place], [place] [id number] 03/05/2025 Va Crowdy [facility] [address] [place], [place] [id number] 04/22/2024 Va Nieves Acute otitis media w ith effusion of left ear H65.192 ; Non-recurrent acute serous otitis media of right ear H65.01 ; ROSE positive R76.8 ; Depression with anxiety F41.8 ; Hypothyroidism (acquired) E03.9 ; Essential hypertension I10 ; Mixed hyperlipidemia E78.2 ; Hot flashes R23.2 and Vitamin D deficiency E55.9 [facility] [address] [place], [place] [id number] 06/04/2024 Va Nieves Morbid (severe) obes ity due to excess calories E66.01 ; Body mass index [BMI] 45.0-49.9, adult Z68.42 ; Psoriatic arthritis L40.50 ; Monet's thyroiditis E06.3 and Essential hypertension I10 [facility] [address] [facility] [address] [place], [place] [id number] 09/24/2024 Va Nieves Depression with anxi ety F41.8 [facility] [address] [facility] [address] [place], [place] [id number] 11/06/2024 Va Nieves Strep pharyngitis J0 2.0 [facility] [address] [facility] [address] [place], [place] [id number] 03/03/2025 Va Nieves Chronic constipation K59.09 [facility] [address] [facility] [address] [place], [place] [id number] 03/10/2025 Va Nieves Mixed hyperlipidemia E78.2 ; Depression with anxiety F41.8 ; Chronic constipation K59.09 ; Essential hypertension I10 ; Vitamin D deficiency E55.9 ; Vitamin B12 deficiency E53.8 and Hypothyroidism (acquired) E03.9 [facility] [address] [facility] [address] [place], [place] [id number] 07/23/2024 Va Nieves COVID-19 U07.1 ; Rig ht knee pain, unspecified chronicity M25.561 and Acute otitis media with effusion of left ear H65.192 Assessments Encounter Date Diagnosis (ICD Code) Assessment [...] after a few days on the antibiotic 03/03/2025 Chronic constipation (ICD-10 - K59.09) Likely has a fecal impaction. She is going to try a suppository and if that doesn't work she will try an enema at home. Will also start on linzess. 03/10/2025 Depression with anxiety (ICD-10 - F41.8) 03/10/2025 Mixed hyperlipidemia (ICD-10 - E78.2) 03/10/2025 Chronic constipation (ICD-10 - K59.09) Likely has a fecal impaction. She is going to try a suppository and if that doesn't work she will try an enema at home. Will also start on linzess. 07/23/2024 Acute otitis media with effusion of left ear (ICD-10 - H65.192) 06/04/2024 Psoriatic arthritis (ICD-10 - L40.50) 04/22/2024 ROSE positive (ICD-10 - R76.8) 04/22/2024 Depression with anxiety (ICD-10 - F41.8) 06/04/2024 Monet's thyroiditis (ICD-10 - E06.3) 03/10/2025 Essential hypertension (ICD-10 - I10) 03/10/2025 Vitamin D deficiency (ICD-10 - E55.9) 06/04/2024 Essential hypertension (ICD-10 - I10) 04/22/2024 Hypothyroidism (acquired) (ICD-10 - E03.9) 04/22/2024 Essential hypertension (ICD-10 - I10) 03/10/2025 Vitamin B12 deficiency (ICD-10 - E53.8) 04/22/2024 Mixed hyperlipidemia (ICD-10 - E78.2) 04/22/2024 Hot flashes (ICD-10 - R23.2) 03/10/2025 Hypothyroidism (acquired) (ICD-10 - E03.9) 04/22/2024 Vitamin D deficiency (ICD-10 - E55.9) Plan Of Treatment Pending Test Test Name Order Date MRI : Shoulder, left, without contrast 0 12/12/2022 X ray : Abdomen-KUB with upright films 0 03/10/2025 CBC Venipuncture (in house) 03/10/2025 P-Vitamin B12 03/10/2025 P-Comprehensive Metabolic Panel (CMP) P-T4 Free (thyroxine) 03/10/2025 P-Lipid Panel 03/10/2025 P-TSH 03/10/2025 P-Vitamin D 25-Hydroxy 03/10/2025 Insurance Providers Payer Name Payer Address Payer Phone Subscriber Number Group Number Insured Name Patient Relationship to Insured Coverage Start Date Coverage End Date [employer] [address] [place] [address] [phone] [id number] November Self - patient is the insured [...] - Nerve 04/2019 Hospitalization History Reason Date(Month/Year) [facility] - Asthma 06/30/2019
--- OUTSIDE RECORDS SUMMARY | 2025-03-10 12:03 | XMS_ITS | Referral Summary ---
Author Organization [employer] ([place], [place], [place], [place]) Address [address] [place] [address] Care Team Providers Care Anodic Operator Name Role Phone Va Nieves Primary Care Provider [phone] Social History Tobacco Use Types Packs/Day Years [...] Date Abhi rded Speak language other than Czech at home Not on file 06/08/2024 Want [...] file Insurance BLUE CROSS[employer]UE [employer]IELD Care Teams Anodic Operator Relationship Specialty Start Date End Date Va Nieves PA [address] [place] [address] PCP - General Physician Insulator Helper 06/10/24
--- OUTSIDE RECORDS SUMMARY | 2025-03-10 12:03 | XMS_ITS | Data Portability ---
Author Organization [place] [facility] Address [address] [facility] [address] [place] [address] Assessment Encounter Date Assessment Date Assessment LastModified [...] mcg/actua tion aerosol inhaler 2019 020 INTERFACE [facility], [address], [address], 0 11:51:59 Patient TargetsNo targets recorded. Patient Instructions Encounter Date Encounter Id Patient Instructions Last Modified By Organization Details Last Modified Time 08/07/2018 [id number] snoring: care instructions Not available 08/07/2018 12:09:42 When You Want to Lose Weight: Care Instructions Not available 08/07/2018 12:09:42 12/08/2019 [id number] the patient has requested and consented to a telehealth appointment today. Due to the current state of emergency, it is appropriate to address the patient's medical needs the [facility] appointment. Not available 12/08/2019 11:54:22 Reason for Referral None Reported. Results Created Date Observation Date Name Description Value Unit Range Abnormal Flag Note LastModifiedBy Organization Detail LastModifiedTime 09/08/19 19 09/04/2018 home sleep testi ng* No observ ation record ed. [email or web address] Not Available 2018 12:49:57 12/03/19 19 12/01/2018 CPAP compl iance * No observ ation record ed. [email or web address] Not Available 12/03 11:43:53 12/04/19 19 2018 CPAP compl iance * No observ ation record ed. [facility] [employer], [facility] [address] [address], [place], [address], 12/03/2018 16:09:07 Result Notes None recorded. Procedures Surgical History Date Name Laterality Status Provider Name and Address Organization Details Recorded Time 04/21/20 19 neurostimulation of spinal cord tissue completed Marisa Acevedo [facility] 12/08/2019 11:18:18 08/07/20 18 Airway Resistance completed [facility] 08/07/2018 10:02:53 08/07/20 18 Diffusion Capacity completed [facility] 08/07/2018 10:02:50 08/07/20 18 Lung Volumes, Plethysmography completed [facility] 08/07/2018 10:02:52 08/07/20 18 Spirometry completed [facility] 08/07/2018 10:02:49 08/07/20 18 Pulse Oximetry completed [facility] 08/07/2018 10:02:58 Imaging Results None recorded. Procedure Notes Documentation Provider Name and Address Organization Details Recorded Time [address] [place] [address] HOME SLEEP STUDY REPORT NAME: Valerie Guardado [...] down to 74%. RECOMMENDATIONS: per BRAXTON Schulte [facility] 09/10/2018 15:25:43 Medical Equipment None Reported. Allergies Allergen ID Allergen Name Allergen Category Reaction Reaction Severity Criticality Documentation Date Start Date Code Code System Note Provider Name and Address Organization Details Recorded Time 600954 meloxicam medicatio n Not available Not available Not available 08/07/2018 94973 RxNorm Tarah Mendoza [facility] 8 09:52:18 Medications Name Sig Start Date [...] blood by Pulse oximetry Heart rate Systolic And Diastolic Provider Name and Address Organization Details Last Updated DateTime 9 165.1 cm 41.6 kg/m2 129027. 09 g 16 /min 95 % 95 % 97 /min 132/72 mm[Hg] Apolonia Olguin [facility] 9 15:09:00 Date Recorded Body weight Body mass index (BMI) Body height Heart rate Oxygen saturation Oxygen saturation in Arterial blood by Pulse oximetry Respiratory rate Systolic And Diastolic Provider Name and Address Organization Details Last Updated DateTime 8 712405. 68 g 41.8 kg/m2 165.1 cm 93 /min 97 % 97 % 16 /min 138/76 mm[Hg] Tarah Mendoza [facility] 8 09:52:05 Social History Question Answer Notes LastModified by Organizat ion Details LastModified Time Tobacco Smoking Status Former Smoker Tarah Mendoza [facility] 08/07/2018 09:55:01 When Did You Quit Smoking? 1-5yearssinc elastcigaret te [email or web address] Information not available 08/07/2018 What Was The Date Of Your Most Recent Tobacco Screening? 2018 Information n ot available 10/06/2019 How Much Tobacco Do You Smoke? 2 PPD Information not available 08/07/2018 How Many Years Have You Smoked Tobacco? 22 [email or web address] Information not available 08/07/2018 Sex: Unknown Functional Status Question Answer Note LastModified by Organization D etails LastModified Time What is your level of alcohol consumption? None [email or web address] Information not available 08/07/2018 What is your exercise level? None [email or web address] Information not available 08/07/2018 Mental Status None recorded. Family History Relationship Description Onset Age of this Age Resolved Age Notes LastModified by Organization Details LastModified Time Father Chronic obstructive pulmonary disease [email or web address] Not available 08/07 09:53:16 Father Family history of malignant neoplasm Not available 08/07 09:53:22 Father Heart disease Not available 08/07 09:53:29 Mother Heart disease [email or web address] Not available 08/07 09:53:37 Medical History No medical history recorded. Gynecological HistoryNo gynecological history recorded. Obstetrics History GPAL:G 0 P 0 0 0 0 Past Encounters Encounter ID Performer Location Encounter Start Date Encounter Closed Date Diagnosis/Indication Diagnosis SNOMED-CT Code Diagnosis ICD10 Code Diagnosis Note [id number] GARY GAYTAN PA-C [facility] [address] [facility], [address] [place] [address] 08/07/2018 09:34:15 08/07/2018 12:15:51 Snoring 83007187 R06.83 Loud, nightly snoring. Excessive daytime sleepiness [...] to work towards weight loss. Morbid obesity 335784859 E66.01 BMI 41.8 today. The patient's weight gain began after she required surgery for a fractured ankle. She remains very sedentary because she continues to have difficulty with her knee and ankle. She is being evaluated for these issues currently. Ex-smoker 1284467 Z87.89 1 40-pack-ye ar history of tobacco abuse. The patient completed smoking cessation 3 years ago. Currently, she is not a candidate for annual low-dose CT chest for lung nodule screening secondary to her age. [id number] GARY GAYTAN PA-C [facility] [address] [place] [address] 09/04/2018 14:17:27 09/04/2018 14:26:49 [id number] GARY GAYTAN PA-C PULMONARY [address] [facility], [address] [place] [id number] 2018 14:21:43 2018 16:53:11 Obstructive sleep apnea of adult 2275763176 103 G47.33 severe JEAN CLAUDE with a [...] necessary changes. Advised patient never drivable drowsy. [id number] GARY GAYTAN PA-C P[facility] [address] [facility], [address] [place] [address] 12/08/2019 11:11:59 12/08/2019 13:56:01 Obstructive sleep apnea of adult 2829335316 103 G47.33 severe JEAN CLAUDE with a [...] are indicated from her compliance . Ex-smoker 2090178 Z87.89 1 40-pack-ye ar history of tobacco [...] ID Guarantor Name 07/13/2020 1 [employer] [id number] Valerie Guardado [id number] November Geo 07/13/2020 1 [place] [id number] Brett Guardado [id number] November Geo Notes Date Note Type Note [...] hemoptysis or wheezing. She does have a 46-rvpm-qgwx history of tobacco abuse with complete smoking cessation 3 years ago. She denies any recent imaging of her chest. She is concerned about her respiratory status because her father had COPD and lung cancer. He was also a smoker. GARY GAYTAN PA-C [address] [place] [address], [phone], [facility] 08/07/2018 12:10:28 2018 text/html Mrs. Guardado is [...] humidity level. GARY GAYTAN PA-C [address] [place], [address], [facility] 2018 16:42:28 12/08/2019 text/html Mrs. Guardado is a 49-year-old who is seen via telehealth today for one-year sleep recheck. Today, she reports doing well with her CPAP. She does report having some recent difficulty hawing asleep. She has not tried anything [id number]. She denies any known snoring. She denies any dry eyes, mouth or nose. She denies any morning headaches. She is requesting a refill of her albuterol inhaler. GARY GAYTAN PA-C [address] [place], [address], [facility] 12/08/2019 11:55:10 OBGyn Episode No OBEpisode recorded.
--- OUTSIDE RECORDS SUMMARY | 2025-03-10 12:03 | XMS_ITS | Clinical Summary ---
Author Organization Healthcare Address [address] [place] [address] Care Team Providers Care Aerial Tram Operator Name Role Phone Crow Monge MD Primary Care Provider [phone] Allergies Active Allergy Reactions Criticality Noted Date [...] daily. Active cholecalciferol (Vitamin D-3) 250 MCG (36441 UT) capsule Take 1 capsule (10,000 Units) by mouth daily. Active Atogepant (Qulipta) 60 MG tablet Take 60 mg by mouth daily. Active Active Problems Problem Noted Date Diagnosed Date Class III obesity with body mass index (BMI) of 40.0 or higher 10/23/2024 Social History Tobacco Use Types Packs/Day Years [...] 11/30/2024 2:54 PM EDT Plan of Treatment Health Maintenance Due Date Last Done Comments [facility]-Depression Screening 1972 [facility]-HIV Screening 1972 [facility]-Hepatitis C Screening 1972 [facility]-/Child/Adol SDOH Screenings 1972 [facility]- SDOH Screenings 1990 [facility]-Adult SDOH Screenings 1990 [facility]-Hepatitis B Vaccines (1 of 3 - 19+ 3-dose series) 12/03/1991 CT Colonography 2017 Colonoscopy 2017 FIT-DNA 2017 FIT 2017 FOBT 2017 Sigmoidoscopy 2017 [facility]-Colorectal Cancer Screening 2017 [id number] Vaccine (3 - Pfizer risk series) 01/17/2021 12/20/2020, 11/29/2020 [facility]-Breast Cancer Screening 2022 [facility]-Pneumococcal Vaccine: 50 + Years (1 of 1 - PCV) 2022 [facility]-Influenza Vaccine (#1) 04/19/202505/03, 06/01/2022, 05/28/2021 [facility]-DTaP,Tdap,and Td Vaccine s (2 [...] patient's age to complete this topic Insurance [facility] [place] [id number] [place] Care Teams Aerial Tram Operator Relationship Specialty Start Date End Date Crow Monge MD [address] [place] [id number] PCP - General 12/30/20
== END 2025-03-10 23:59 | disposition home or self-care (01) ==
LOC: RAD 12:00
PROVIDERS: PCP Physician Assistant; Visit Provider Physician Assistant
DX: K59.09 Other constipation (principal); Z96.82 Presence of neurostimulator
CPT/HCPCS: 74018

== ENCOUNTER 2025-04-08 14:13 | Outpatient (CLI) | payer BC, SELFPAY ==
--- OUTSIDE RECORDS SUMMARY | 2025-03-03 10:05 | XMS_ITS ---
Author Organization [facility] Address [address] [facility] [address] [place] [id number] Care Team Providers Care Resolute Professional Name Role Phone Shital Bella Primary Care Provider Va Nieves Unavailable [phone] Allergies Allergen (clinical drug ingredient) Drug/Non Drug [...] a day Active Vitamin D3 1.25 MG (86725 UT) 1 capsule Orally Once a day [...] o nce a day Active Vital Signs Blood pressure systolic 124 mm Hg 03/03/20 25 Blood pressure diastolic 62 mm Hg 025 Heart Rate 75 /min 03/03/2025 Height 65 in 03/03/2025 Weight 283.2 lbs 03/03/2025 BMI 47.12 kg/m2 03/03/2025 Encounters Encounter Location Date Provider Diagnosis [facility] [address] [facility] [address] [place] [id number] 03/03/2025 Va Nieves Chronic constipation K59.09 Assessments [...] Notes * RHETT NOVEMBERDOB:1970 (54 yo F)Acc No.[id number]:03/03/2025 Progress Notes Patient: Priya MURCIA NOVEMBER Provider: NAEEM Cameron :1970 A ge:54 Y S ex:Female Date:03/03/2025 Address:[facility] [address] [facility] [id number] Pcp:Shital Bella Subjective: * Chief Complaints: * [...] day , Taking Vitamin D3 1.25 MG (21665 UT) Capsule 1 capsule Orally Once a [...] - K59.09 (Primary) Plan: * Treatment: * Procedure Codes: 1 036F TOBACCO NON-USER, G8783 BP SCR PRFRM RCMDD DEFIND SCR INTVL, 3074F SYST BP LT 130 MM HG, 3078F DIAST BP < 80 MM HG * Follow Up: p rn * Images: Billing Information: * Visit Code: 80894 Office Visit, Est Pt., Level 3. * Procedure Codes: 1036F TOBACCO NON-USER. G8783 BP SCR PRFRM RCMDD DEFIND SCR INTVL. 3074F SYST BP LT 130 MM HG. 3078F DIAST BP < 80 MM HG. * Electronic signature of NAEEM Pal on 04/08/2025 at 02:26 PM EDT Sign off status: Pending * Provider: NAEEM Cameron Date: 03/03/2025 Generated for Haim dixon/Margo/Samantha on: 04/08/2025 02:26 PM EDT History and Physical Notes * [...]
--- OUTSIDE RECORDS SUMMARY | 2025-03-10 06:45 | XMS_ITS ---
Author Organization [facility] Address [address] [facility] [address] [id number] Care Team Providers Care Courier Delivery Driver Name Role Phone Shital Bella Primary Care Provider JelaniVa arvizu Unavailable [phone] Allergies Allergen (clinical drug ingredient) Drug/Non Drug Allergy documented on EMR Reaction Allergy Type Onset Date Status meloxicam Meloxicam rash, hives, itching Drug Allergy Active Results Component Value Reference Range Notes CBC Venipuncture (in house) Reviewed date:03/10/2025 01:26:16 PM Interpretation: Performing Lab: Notes/Report: wbc 6.9 3.5 - 10 lymph 30.4 15 - 50 mid 6.0 2 - 15 gran 63.6 35 - 80 rbc 4.66 3.5 - 5.5 hgb 13.6 11.5 - 16.5 hct 40.4 35 - 55 mcv 86.7 75 - 100 mch 29.2 25 - 35 mchc 33.7 31 - 38 platlet 355 100 - 400 P-Vitamin B12 Reviewed date:03/11/2025 10:21:10 AM Interpretation: Performing Lab: Notes/Report: Test performed by [facility] [address] [place], [place] [address] , [address], [place] [address] Epi Boyce MD, Forensic Examiner CLIA: [id number] Vitamin B12 >2000 232-1245 pg/mL P-Comprehensive Metabolic Pa itz (CMP) Reviewed date:03/11/2025 10:21:10 AM Interpretation: Performing Lab: Notes/Report: Test performed by [facility] [address] [place] [address] , [place] [address] Epi Boyce MD, Forensic Examiner CLIA: [id number] Sodium 140 135-145 mmol/L Potassium 4.3 3.5-5.3 mmol/L Chloride 107 97-108 mmol/L CO2 23 20-32 mmol/L Glucose 93 65-99 mg/dL BUN 11 6-20 mg/dL Creatinine 0.90 0.50-1.00 mg/dL Calcium 9.7 8.6-10.4 mg/dL eGFR by Creatinine 77 >59 mL/min/1.73m2 Protein 7.3 6.0-8.3 g/dL Albumin 4.3 3.5-5.3 g/dL Alkaline Phosphatase 102 35-121 IU/L ALT (SGPT) 12 <5-47 IU/L AST (SGOT) 12 <5-40 IU/L Bilirubin, Total 0.4 <0.2-1.2 mg/dL A/G Ratio 1.4 1.1-2.5 P-T4 Free (thyroxine) Reviewed date:03/11/2025 10:21:10 AM Interpretation: Performing Lab: Notes/Report: Test performed by [facility] [address] [place] [address] , [place] [address] Epi Boyce MD, Forensic Examiner CLIA: [id number] Thyroxine Free (free T4) 0.96 0.86-1.76 ng/dL P-Lipid Panel Reviewed date:03/11/2025 10:21:11 AM Interpretation: Performing Lab: Notes/Report: Test performed by [facility] [address] [place] [address] , [place] [address] Epi Boyce MD, Forensic Examiner CLIA: [id number] Cholesterol 147 <200 mg/dL Triglycerides 106 <150 mg/dL HDL Cholesterol 42 >39 mg/dL Cholesterol / HDL Ratio 3.50 0.00-4.44 Ratio Non-HDL Cholesterol 105 <130 mg/dL LDL Cholesterol (Calculation) 84 <130 mg/dL LDL Cholesterol Levels* Less than 100 mg/dL Optimal 100 to 129 mg/dL Near Optimal/ Above Optimal 130 to 159 mg/dL Borderline High 160 to 189 mg/dL High 190 mg/dL and above Very High * Categories as recommended by the 2004 ATPIII guidelines LDL/HDL Ratio 2.0 <3.3 Ratio LDL Cholesterol Patient History Test Date: 04/22/2024 LDL Results: 104 Units: mg/dL % Change: - Test Date: 03/10/2025 LDL Results: 84 Units: mg/dL % Change: -19% P-TSH Reviewed date:03/11/2025 10:21:11 AM Interpretation: Performing Lab: Notes/Report: Test performed by [facility] [place], [place] [address] [place] [address] Epi Boyce MD, Forensic Examiner CLIA: [id number] TSH 2.23 0.43-5.25 mU/L P-Vitamin D 25-Hydroxy Reviewed date:03/11/2025 10:21:11 AM Interpretation: Performing Lab: Notes/Report: Test performed by [facility] [place] [address] [address] [place] [address] Epi Boyce MD, Forensic Examiner CLIA: [id number] Vitamin D 25-Hydroxy 51.8 30.0-100.0 ng/mL Interpretation of Vitamin D 25 OH: < 20 ng/mL - Deficiency 20 - 29 ng/mL - Insufficiency 30 - 100 ng/mL - Sufficiency > 100 ng/mL - Super-therapeutic- toxicity may occur above this level. Clinical correlation required. X ray : Abdomen-KUB with upr ight films Reviewed date:03/11/2025 10:21:11 AM Interpretation: Performing Lab: Notes/Report: REASON FOR VISIT constipation Medications Medication SIG (Take, Route, Frequency, Duration) Notes Start Date End Date Status B-12 1000 MCG 1 tab(s) orally once a day 10/27/2020 Active Topiramate ER 100 MG 1 cap(s) Orally Two times a day Active Lisinopril 5 MG Take 1 tablet by patrick th once daily; Duration: 90 Active Vitamin D3 1.25 MG (20558 UT) 1 capsule Orally Once a day 04/04/2023 Active Levothyroxine Sodium 75 MCG take 1 table t by mouth once daily for 90 days Orally once daily; Duration: 90 days Active Ubrelvy 100 MG 1 tablet as needed, may take second dose at least 2 hours after first dose up to 2 tablets per day as needed Orally Once a day; Duration: 30 day(s) Active Atorvastatin Calcium 10 MG Take 1 tablet by mouth once daily Orally Once a day; Duration: 90 days Active Slow Fe 142 (45 Fe) MG 1 tablet Orally o nce a day Active Methotrexate 2.5 MG 6 tab Orally once a week Active Tremfya 100 MG/ML 1 mL Subcutaneous Active Linzess 72 MCG 1 capsule at least 3 0 minutes before the first meal of the day on an empty stomach Orally Once a day Active Ondansetron 4 MG 1 tablet on the tong ue and allow to dissolve Orally every 8 hours, prn 03/04/2025 Active buPROPion HCl ER (SR) 100 MG Take 1 tablet by mouth twice daily; Duration: 90 days Active PARoxetine HCl 20 MG Take 1 tablet by mo uth once daily Orally Once a day; Duration: 90 days Active Vital Signs Blood pressure systolic 126 mm Hg 03/10/20 25 Blood pressure diastolic 70 mm Hg 025 Heart Rate 66 /min 03/10/2025 Height 65 in 03/10/2025 Weight 280.6 lbs 03/10/2025 BMI 46.69 kg/m2 03/10/2025 Encounters Encounter Location Date Provider Diagnosis [facility] [address] [place] [id number] 03/10/2025 Va Nieves Mixed hyperlipidemia E78.2 ; Depression with anxiety F41.8 ; Chronic constipation K59.09 ; Essential hypertension I10 ; Vitamin D deficiency E55.9 ; Vitamin B12 deficiency E53.8 and Hypothyroidism (acquired) E03.9 Assessments Encounter Date Diagnosis (ICD Code) Assessment Notes Treatment Notes Treatment Clinical Notes Section Notes 03/10/2025 Mixed hyperlipidemia (ICD-10 - E78.2) 03/10/2025 Depression with anxiety (ICD-10 - F41.8) 03/10/2025 Chronic constipation (ICD-10 - K59.09) Will give more samples of linzess while awaiting approval. Will get x-rays. She did have a few days of diarrhea. 03/10/2025 Essential hypertension (ICD-10 - I10) 03/10/2025 Vitamin D deficiency (ICD-10 - E55.9) 03/10/2025 Vitamin B12 deficiency (ICD-10 - E53.8) 03/10/2025 Hypothyroidism (acquired) (ICD-10 - E03.9) Plan Of Treatment Medication Medication Name Sig Start Date Stop Date Notes Atorvastatin Calcium 10 MG Take 1 tablet by mouth once daily Orally Once a day; Duration: 90 days Linzess 72 MCG 1 capsule at least 3 0 minutes before the first meal of the day on an empty stomach Orally Once a day buPROPion HCl ER (SR) 100 MG Take 1 tabl et by mouth twice daily; Duration: 90 days PARoxetine HCl 20 MG Take 1 tablet by mo uth once daily Orally Once a day; Duration: 90 days Treatment Notes Assessment Notes Chronic constipation Will give more samp les of linzess while awaiting approval. Will get x-rays. She did have a few days of diarrhea. Next Appt Details Follow Up: via phone to repo rt test results, Reason: Progress Notes * RHETT NOVEMBERDOB:1970 (54 yo F)Acc No.[id number]:03/10/2025 Progress Notes Patient: Priya MURCIANovember Provider: NAEEM Cameron :1970 A ge:54 Y S ex:Female Date:03/10/2025 [id number] Pcp:Shital Bella Subjective: * Chief Complaints: * 1 . Constipation. * HPI: H PI: Patient is here today for P t here for continued constipation. She did an enema and started the linzess and began going to the bathroom but the insurance has not approved the linzess yet. She is out of medication and is now constipated again. She is still nauseated. She also needs refills on some of her medications and needs lab work.. * ROS: D ERMATOLOGY: no R jc. n o H boris. G ASTROENTEROLOGY: no N ausea. n o V omiting. D iarrhea y es.? U ROLOGY: no D ifficulty urinating. n [...] yes. Alcohol: No. * Medications: T aking Methotrexate 2.5 MG Tablet 6 tab Orally once a week , Taking Tremfya 100 MG/ML Solution Prefilled Syringe 1 [...] day , Taking Vitamin D3 1.25 MG (05776 UT) Capsule 1 capsule Orally Once a day , Taking Levothyroxine Sodium 75 MCG Tablet take 1 tablet by mouth once daily for 90 days Orally once daily , Taking Lisinopril 5 MG Tablet Take 1 tablet by mouth once daily , Taking buPROPion HCl ER (SR) 100 MG Tablet Extended Release 12 Hour Take 1 tablet by mouth twice daily , Taking PARoxetine HCl 20 MG Tablet Take 1 tablet by mouth once daily , Taking Atorvastatin Calcium 10 MG Tablet Take 1 tablet by mouth once daily , Taking Linzess 72 MCG Capsule 1 capsule at least 30 minutes before the first meal of the day on an empty stomach Orally Once a day , Taking Ondansetron 4 MG Tablet Disintegrating 1 tablet on the tongue and allow to dissolve Orally every 8 hours, prn * Allergies: M eloxicam: rash, hives, itching. Objective: * Vitals: W t: 280.6, Temp: 97.9, BP: 126/70, HR: 66, Nurse: mike, Ht: 65, BMI:46.69. * Examination: G eneral Examination: General Appearance: N AD. H EENT: u nremarkable.?Oral cavity: n o lesions, mucosa moist and WNL, no erythema. N shonna: s upple, no lymphadenopathy. C hest: n ormal shape and expansion. H eart: R SR. L ungs: c lear to auscultation. A bdomen: b owel sounds present, soft, diffusely tender. N eurologic Exam: I ntact, gait normal. S kin: n ormal, no rash. P eripheral pulses: n ormal (2+) bilaterally. E xtremities: n o leg edema. Assessment: * Assessment: 1. M ixed hyperlipidemia - E78.2 (Primary) 2 . D epression with anxiety - F41.8 3 . C hronic constipation - K59.09 4 . E ssential hypertension - I10 5 . V itamin D deficiency - E55.9 6 . V itamin B12 deficiency - E53.8 7 . H ypothyroidism (acquired) - E03.9 Plan: * Treatment: Value Reference Range A /G Ratio 1.4 1.1-2.5 - * A lbumin 4.3 3.5-5.3 - g/dL * A lkaline Phosphatase 102 35-121 - IU/L * A LT (SGPT) 12 <5-47 - IU/L * A ST (SGOT) 12 <5-40 - IU/L * B ilirubin, Total 0.4 <0.2-1.2 - mg/dL * B UN 11 6-20 - mg/dL * C alcium 9.7 8.6-10.4 - mg/dL * C hloride 107 97-108 - mmol/L * C O2 23 20-32 - mmol/L * C reatinine 0.90 0.50-1.00 - mg/dL * G lucose 93 65-99 - mg/dL * P otassium 4.3 3.5-5.3 - mmol/L * S odium 140 135-145 - mmol/L * P rotein 7.3 6.0-8.3 - g/dL * e GFR by Creatinine 77 >59 - mL/min/1.73m2 * Va Nieves 03/10/2025 1 1:21:01 AM EDT >room B, purple Va Nieves 03/11/2025 10:21:04 AM EDT >see TE ?LAB: P-Lipid Panel (Collection Date & Time - 03/10/2025 10:31 AM)* Value Reference Range C holesterol / HDL Ratio 3.50 0.00-4.44 - Ratio * C holesterol 147 <200 - mg/dL * H DL Cholesterol 42 >39 - mg/dL * L DL Cholesterol (Calculation) 84 <130 - mg/d L * L DL/HDL Ratio 2.0 <3.3 - Ratio * N on-HDL Cholesterol 105 <130 - mg/dL * T riglycerides 106 <150 - mg/dL * Va Nieves 03/10/2025 1 1:21:01 AM EDT >room B, purple Va Nieves 03/11/2025 10:21:04 AM EDT >see TE 2.?Depression with anxiety? Refill buPROPion HCl ER (SR) Tablet Extended Release 12 Hour, 100 MG, Take 1 tablet by mouth twice daily, 90 days, 180 Tablet, Refills 1;?Refill PARoxetine HCl Tablet, 20 MG, Take 1 tablet by mouth once daily, Orally, Once a day, 90 days, 90, Refills 1.??3.?Chronic constipation? Start Linzess Capsule, 72 MCG, 1 capsule at least 30 minutes before the first meal of the day on anempty stomach, Orally, Once a day.?LAB: CBC Venipuncture (in house) (Collection Date & Time - 03/10/2025)* Value Reference Range w bc 6.9 3.5 - 10 * l ymph 30.4 15 - 50 * m id 6.0 2 - 15 * g ran 63.6 35 - 80 * r bc 4.66 3.5 - 5.5 * h gb 13.6 11.5 - 16.5 * h ct 40.4 35 - 55 * m cv 86.7 75 - 100 * m ch 29.2 25 - 35 * m chc 33.7 31 - 38 * p latlet 355 100 - 400 * Suzie Elena 03/10/2025 0 1:11:07 PM EDT >Va Nieves 03/10/2025 01:26:14 PM EDT > ?Imaging: X ray : Abdomen-KUB with upright films (Performed Date - 03/10/2025)* Va iNeves 03/11/2025 1 0:21:04 AM EDT >see TE Notes: Will give more samples of linzess while awaiting approval. Will get x- rays. She did have a few days of diarrhea.??4.?Vitamin D deficiency?LAB: P-Vitamin D 25-Hydroxy (Collection Date & Time - 03/10/2025 10:31 AM) * Value Reference Range V itamin D 25-Hydroxy 51.8 30.0-100.0 - ng/mL * Va Nieves 03/10/2025 1 1:21:01 AM EDT >room Berrol Crista S 03/11/2025 10:21:04 AM EDT >see TE 5.?Vitamin B12 deficiency?LAB: P-Vitamin B12 (Collection Date & Time - 03/10/2025 10:31 AM)* Value Reference Range V itamin B12 >2000 H 232-1245 - pg/mL * Va Nieves 03/10/2025 1 1:21:01 AM EDT >room errol Lopes Crista S 03/11/2025 10:21:04 AM EDT >see TE 6.?Hypothyroidism (acquired)?LAB: P-T4 Free (thyroxine) (Collection Date & Time - 03/10/2025 10:31 AM)* Value Reference Range T hyroxine Free (free T4) 0.96 0.86-1.76 - ng/d L * Va Nieves 03/10/2025 1 1:21:01 AM EDT >room Moses, Va Albarado 03/11/2025 10:21:04 AM EDT >see TE ?LAB: P-TSH (Collection Date & Time - 03/10/2025 10:31 AM)* Value Reference Range T SH 2.23 0.43-5.25 - mU/L * Va Nieves 03/10/2025 1 1:21:01 AM EDT >room errol Lopes Crista S 03/11/2025 10:21:04 AM EDT >see TE * Procedure Codes: 8 5025 CBC WITH AUTO DIFF, 51551 VENIPUNCT, ROUTINE*, 1036F TOBACCO NON-USER, 3074F SYST BP LT 130 MM HG, 3078F DIAST BP < 80 MM HG * Follow Up: v ia phone to report test results * Images: Billing Information: * Visit Code: 45482 Office Visit, Est Pt., Level 4. * Procedure Codes: 94053 CBC WITH AUTO DIFF. 23113 VENIPUNCT, ROUTINE*. 1036F TOBACCO NON-USER. 3074F SYST BP LT 130 MM HG. 3078F DIAST BP < 80 MM HG. * Electronic signature of NAEEM Pal on 04/08/2025 at 02:26 PM EDT Sign off status: Pending * Provider: NAEEM Cameron Date: 0 03/10/2025 Generated for Haim dixon/Margo/Giovanyitting on: 0 04/08/2025 02:26 PM EDT History and Physical Notes * HPI (History of Present Illness) Category Sub-Category Detail Notes Category Not es HPI Patient is here today for Pt her e for continued constipation. She did an enema and started the linzess and began going to the bathroom but the insurance has not approved the linzess yet. She is out of medication and is now constipated again. She is still nauseated. She also needs refills on some of her medications and needs lab work. Examination Category Sub-Category Detail Notes Category Not es General Examination HEENT: unremarkable Heart: RSR Lungs: clear to auscultatio n Abdomen: bowel sounds present , soft, diffusely tender Extremities: no leg edema General Appearance: NAD Skin: normal, no rash Neurologic Exam: Intact, gait normal Neck: supple, no lymphaden opathy Oral cavity: no lesions, mucosa m oist and WNL, no erythema Peripheral pulses: normal (2+) bilatera lly Chest: normal shape and exp ansion
--- OUTSIDE RECORDS SUMMARY | 2025-03-22 10:44 | XMS_ITS ---
Author [facility] [address] [facility] [address] [facility] [address] [place] [id number] Care Team Providers Care Torch Straightener Name Role Phone Shital Bella Primary Care Provider REASON FOR VISIT due saida Encounters Encounter Location Date Provider Diagnosis Alayna[facility]amonita [address] [facility] [address] [place] [phone] 03/22/2025 Shital Bella Encounter for screening for malignant neoplasm of breast Z12.31 Assessments Encounter Date Diagnosis (ICD Code) Assessment Notes Treatment Notes Treatment Clinical Notes Section Notes 03/22/2025 Encounter for screening for malignant neoplasm of breast (ICD-10 - Z12.31) Plan Of Treatment Pending Test Test Name Order Date Mammogram 03/22/2025 Progress Notes * DELANEYNovemberDOB:1970 (54 yo F)Acc No.[id number]:03/22/2025 Patient: Priya MURCIANovember :1970 A ge:54 Y S ex:Female Address:[place], [address] Subjective: * Chief Complaints: * D ue saida * Medical History: * Surgical History: * Hospitalization/Major Diagno stic Procedure: * Medications: Objective: * Vitals: * Physical Examination: Assessment: * Assessment: 1. E ncounter for screening for malignant neoplasm of breast - Z12.31 (Primary) ? Plan: * Treatment: * Procedure Codes: * true * Date: Generated for Printi ng/Faxing/eTransmitting on: 0 04/08/2025 02:25 PM EDT
--- NOTE | 2025-04-08 14:16 | MM_ITS ---
PROCEDURE INFORMATION: Exam: MG Bilateral Screening 3D Mammography Exam date and time: 04/08/2025 2:27 PM Age: 54 years old Clinical indication: Screening examination TECHNIQUE: Imaging protocol: Bilateral Screening tomosynthesis and 2D mammography including computer-aided detection (CAD) when performed. COMPARISON: 1. MG DMBAV DIG MAMM- DAMON ADD VIEWS 02/24/2014 1:16 PM 2. MG DMSB DIG MAMM-SCREEN DAMON 02/10/2014 9:09 AM FINDINGS: MAMMOGRAPHY: Breast composition: There are scattered areas of fibroglandular density. Mass: No suspicious masses. Architectural distortion: None. Calcifications: No suspicious calcifications. Asymmetric density: None. Skin thickening: None. Axillary adenopathy: None. IMPRESSION: No mammographic evidence of malignancy. Annual screening is recommended unless otherwise clinically indicated. ASSESSMENT: BI-RADS Category 1: Negative.
--- OUTSIDE RECORDS SUMMARY | 2025-04-08 14:26 | XMS_ITS | Clinical Summary ---
Author Organization Healthcare Address [address] [place] [address] Care Team Providers Care Supply Chain Engineer Name Role Phone Crow Monge MD Primary Care Provider [phone] Allergies Active Allergy Reactions Criticality Noted Date [...] daily. Active cholecalciferol (Vitamin D-3) 250 MCG (21500 UT) capsule Take 1 capsule (10,000 Units) [...] 2017 Sigmoidoscopy 2017 [facility]-Colorectal Cancer Screening 2017 [id number] Vaccine (3 - Pfizer risk series) 01/17/2021 [...] patient's age to complete this topic Insurance [facility] [place] [id number] [place] Care Teams Supply Chain Engineer Relationship Specialty Start Date End Date Crow Monge MD [address] [place] [id number] PCP - General 12/30/20
--- OUTSIDE RECORDS SUMMARY | 2025-04-08 14:26 | XMS_ITS | Referral Summary ---
Author Organization [employer] ([place], [place], [place], [place]) Address [address] [place] [address] Care Team Providers Care Family Day Care Worker Name Role Phone Va Nieves Primary Care Provider [phone] Social History Tobacco Use Types Packs/Day Years [...] Date Abhi rded Speak language other than Polish at home Not on file 06/08/2024 Want [...] file Insurance BLUE CROSS/BLUE SHIELD Care Teams Family Day Care Worker Relationship Specialty Start Date End Date Va Nieves PA [address] [place] [address] PCP - General Physician Costumed Character Entertainer 06/10/24
--- OUTSIDE RECORDS SUMMARY | 2025-04-08 14:26 | XMS_ITS | Clinical Summary ---
Author Organization [employer] ([place], [place], [place], [place]) Address [address] [address] Care Team Providers Care Face Hardener Name Role Phone Va Nieves Primary Care Provider [phone] Social History Tobacco Use Types Packs/Day Years [...] Date Abhi rded Speak language other than Sierra Leonean at home Not on file 06/08/2024 Want [...] 07/05/2023, Insurance BLUE CROSS/BLUE SHIELD Care Teams Face Hardener Relationship Specialty Start Date End Date Va Nieves PA [address] [place], [place] [address] PCP - General Physician De Icer 06/10/24
--- OUTSIDE RECORDS SUMMARY | 2025-04-08 14:27 | XMS_ITS | Encounter Summary ---
Author Organization [facility] ([place], [place], [place], [place]) Address [address] [place] [address] Care Team Providers Care Dry House Operator Name Role Phone Va Nieves Primary Care Provider [phone] Reason for Referral * Ultrasound (Routine) - Closed Specialty Diagnoses / Procedures Referred By Kenn butt Referred To Contact Diagnoses Autoimmune thyroiditis Procedures Ultrasound head neck soft tissue Kathi Kendrick APRN [address] [place] [address] Phone: tel: fax: Referral ID Status Reason Start Date Expiration Date Visits Re quested Visits Authorized [id number] Closed 06/05/2024 06/05/2025 1 1 Encounter Details Date Type Department Care Team (Late st Contact Info) Description 06/05/2024 Outside Orders [facility] Central Scheduling [address] [place] [address] Kathi Kendrick APRN [address] [place] [address] Autoimmune thyroiditis (Primary Dx) Social History Tobacco [...] Date Abhi rded Speak language other than Maltese at home Not on file 06/08/2024 Want [...] by Kelley Mcmillan PA-C. us Kathi Kendrick BRASS CUTTER IMG US ORDERABLES Paola l Result documented in this encounter Visit Diagnoses Diagnosis Autoimmune thyroiditis- Primary Autoimmune thyroiditis documented in this encounter Care Teams Dry House Operator Relationship Specialty Start Date End Date Va Nieves PA [address] [place] [address] PCP - General Physician E Commerce Merchandising Coordinator 06/10/24 documented as of this encounter
--- OUTSIDE RECORDS SUMMARY | 2025-04-08 14:27 | XMS_ITS | Patient Health Record ---
Author Organization [facility] Address [address] [place] [phone] Care Team Providers Care Director Of Group Sales Name Role Phone Shital Bella Primary Care Provider [phone] Va Nieves [phone] Allergies Allergen (clinical drug ingredient) Drug/Non Drug [...] Interpretation: Performing Lab: Notes/Report: Test performed by [facility] [address] [place], [place] [address], [place] [address] Epi Boyce MD, School Library Media Program Director CLIA: [id number] Vitamin B12 >2000 232-1245 pg/mL P-Comprehensive Metabolic Pa itz (CMP) Reviewed date:03/11/2025 10:21:10 AM Interpretation: Performing Lab: Notes/Report: Test performed by [facility] [address] [facility] , [place] [address] Epi Boyce MD, School Library Media Program Director CLIA: [id number] Sodium 140 135-145 mmol/L Potassium 4.3 3.5-5.3 [...] Interpretation: Performing Lab: Notes/Report: Test performed by [facility] [address] [place] [address] , [place] [address] Epi Boyce MD, School Library Media Program Director CLIA: [id number] Thyroxine Free (free T4) 0.96 0.86-1.76 ng/dL P-Lipid Panel Reviewed date:03/11/2025 10:21:11 AM Interpretation: Performing Lab: Notes/Report: Test performed by [facility] [address] [place] [address] , [place] [address] Epi Boyce MD, School Library Media Program Director CLIA: [id number] Cholesterol 147 <200 mg/dL Triglycerides 106 <150 [...] Interpretation: Performing Lab: Notes/Report: Test performed by [facility] [address] [place], [place] [address] [place] [address] Epi Boyce MD, School Library Media Program Director CLIA: [id number] TSH 2.23 0.43-5.25 mU/L P-Vitamin D 25-Hydroxy Reviewed date:03/11/2025 10:21:11 AM Interpretation: Performing Lab: Notes/Report: Test performed by [facility] [address] [place] [address] [address], [place] [address] Epi Boyce MD, School Library Media Program Director CLIA: [id number] Vitamin D 25-Hydroxy 51.8 30.0-100.0 ng/mL Interpretation of Vitamin D 25 OH: < 20 ng/mL - Deficiency 20 - 29 ng/mL - Insufficiency 30 - 100 ng/mL - Sufficiency > 100 ng/mL - Super-therapeutic- toxicity may occur above this level. Clinical correlation required. X ray : Abdomen-KUB with upr ight films Reviewed date:03/11/2025 10:21:11 AM Interpretation: Performing Lab: Notes/Report: Rapid Strep- Inhouse Reviewed date:11/06/2024 05:05:24 PM Interpretation:pos Performing Lab: Notes/Report: pos strep test pos P-Lipid Panel Reviewed date:04/23/2024 08:32:13 AM Interpretation: Performing Lab: Notes/Report: Test performed by [facility] [address] [place] [address] , [address], [place] [address] Epi Boyce MD, School Library Media Program Director CLIA: [id number] Cholesterol 176 <200 mg/dL Triglycerides 129 <150 [...] Interpretation: Performing Lab: Notes/Report: Test performed by [facility] [address] [place] [address] , [address], [place] [address] Epi Boyce MD, School Library Media Program Director CLIA: [id number] Sodium 140 135-145 mmol/L Potassium 4.2 3.5-5.3 [...] 0.6 <0.2-1.2 mg/dL A/G Ratio 1.8 1.1-2.5 Influenza Screen (in house) Reviewed date:07/23/2024 01:14:23 [...] Interpretation:nothing acute Performing Lab: Notes/Report: nothing acute CBC Venipuncture (in house) Reviewed date:04/22/2024 01:12:11 [...] Interpretation: Performing Lab: Notes/Report: Test performed by [facility] [address] [place] [address] , [address], [place] [address] Epi Boyce MD, School Library Media Program Director CLIA: [id number] Thyroxine Free (free T4) 0.89 0.86-1.76 ng/dL P-TSH Reviewed date:04/23/2024 08:32:13 AM Interpretation: Performing Lab: Notes/Report: Test performed by [facility] [address] [place] [address] , [address], [place] [address] Epi Boyce MD, School Library Media Program Director CLIA: [id number] TSH 4.92 0.43-5.25 mU/L P-Vitamin D 25-Hydroxy Reviewed date:04/23/2024 08:32:13 AM Interpretation: Performing Lab: Notes/Report: Test performed by [facility] [address] [place] [address] , [address], [place] [address] Epi Bocye MD, School Library Media Program Director CLIA: [id number] Vitamin D 25-Hydroxy 46.0 30.0-100.0 ng/mL Interpretation of Vitamin D 25 OH: < 20 ng/mL - Deficiency 20 - 29 ng/mL - Insufficiency 30 - 100 ng/mL - Sufficiency > 100 ng/mL - Super-therapeutic- toxicity may occur above this level. Clinical correlation required. Reason For Referral Diagnosis 1 ROSE positive (R76.8) Referral Organization [facility] Referring Provider First Name Va Referring Provider Last Name Lizbeth Referring Provider Speciality Physician Wound Care Center Consultant Referred Provider Rheumatology, . Referred Provider Specialty Rheumatology General Notes Va Nieves 2023 11:44:14 AM > Needs an appt with Dr. Ellsworth, please send previous lab kaden labs and our previous arthritis panel results, Albertina Brasher 04/23/2024 8:50:05 AM > submiited through Rheumatology website Referral Priority Routine Diagnosis 1 Pain, joint, knee, r ight (M25.561) Referral Organization [facility] Referring Provider First Name Va Referring Provider Last Name Lizbeth Referring Provider Speciality Physician Wound Care Center Consultant Referred Provider Fili Chao Referred Provider Specialty Orthopedic S urgery General Notes Albertina Brasher 024 3:28:08 PM > 08/05/2024 at 09:30am; patient informed Referral Priority Routine Medications Medication SIG (Take, Route, Frequency, Duration) Notes Start Date End Date Status Lisinopril 5 MG Take 1 tablet by once daily; Duration: 90 Active B-12 1000 MCG 1 tab(s) orally once a day 10/27/2020 Active Topiramate ER 100 MG 1 cap(s) Orally Two times a day Active Linzess 72 MCG 1 capsule at least 3 0 minutes before the first meal of the day on an empty stomach Orally Once a day Active Ubrelvy 100 MG 1 [...] tablet Orally o nce a day Active Vitamin D3 1.25 MG (07484 UT) 1 capsule Orally Once a day 04/04/2023 Active Levothyroxine Sodium 75 MCG take 1 table t by mouth once daily for 90 days Orally once daily; Duration: 90 days Active Lubiprostone 8 MCG 1 capsule with food and water Orally Twice a day; Duration: 30 days 03/25/2025 Active buPROPion HCl ER (SR) 100 MG Take 1 tablet by mouth twice daily; Duration: 90 days Active Methotrexate 2.5 MG 6 tab Orally once a week Active PARoxetine HCl 20 MG Take 1 tablet by [facility] once daily Orally Once a day; Duration: 90 days Active Tremfya 100 MG/ML 1 mL Subcutaneous Active Immunizations Vaccine Route Administration Date Status Comme nts xFluzone (6mos and older)-trivalent Unknown 05/28/2021 Administered Tetanus Tdap-Adacel (over 7yrs) IM Intramuscular 10/26/2020 Administered Shingrix Unknown 05/03/2023 Administered Shingrix Unknown 07/05/2023 Administered Fluzone Quad (6months&older) IM Intramuscular 06/01/2022 Administered Fluzone Quad (6months&older) IM Intramuscular 04/22/2024 Administered Flublok IM Intramuscular 05/24/2020 Administered COVID 19 Pfizer Unknown 11/29/2020 Administered COVID 19 Pfizer Unknown 12/20/2020 Administered Problems Problem Type SNOMED Code ICD Code Onset Dates Problem Status W/U Status Risk Notes Problem Hypothyroidism (82763598) Hypothyroidism (acquired) (E03.9) Active confirmed Problem Vitamin D deficiency (70412218) Vitamin D deficiency (E55.9) Active confirmed Problem Essential hypertension (56408281) Essential hypertension (I10) Active confirmed Problem Mixed anxiety and depressive disorder (471066494) Depression with anxiety (F41.8) Active confirmed Problem Morbid obesity (disorder) (810141981) Morbid (severe) obesity due to excess calories (E66.01) Active confirmed Problem Mixed hyperlipidemia (115465297) Mixed hyperlipidemia (E78.2) Active confirmed Problem Chronic pain (04391430) Other chronic pain (G89.29) Active confirmed Problem Chronic pain syndrome (942927830) Chronic pain syndrome (G89.4) Active confirmed Problem Sciatica (65233008) Lumbago with sciatica, left side (M54.42) Active confirmed Problem Neuropathy (056441348) Neuropathy (G62.9) Active confirmed Problem Mild intermittent asthma (861707995) Mild intermittent asthma without complication (J45.20) Active confirmed Problem Leukocytosis (878779974) Leukocytosis, unspecified type (D72.829) Active confirmed Problem Carpal tunnel syndrome of left wrist (058958310312133) Carpal tunnel syndrome of left wrist (G56.02) Active confirmed Problem Psoriatic arthritis (029936161) Psoriatic arthritis (L40.50) Active confirmed Problem Chronic sinusitis (58985429) Chronic sinusitis, unspecified location (J32.9) Active confirmed Problem Monet's thyroiditis (65228851) Monet's thyroiditis (E06.3) Active confirmed Problem Allergic rhinitis (16690564) Seasonal allergic rhinitis due to other allergic trigger (J30.89) Active confirmed Problem Chronic idiopathic constipation (89799191) Chronic idiopathic constipation (K59.04) Active confirmed Problem Postprocedural states (714368407) S/P ankle ligament repair (Z98.890) Active confirmed Problem Unexplained visual loss (disorder) (979490762) Vision problems (H54.7) Active confirmed Problem Body mass index 40+ - severely obese (334180584) Body mass index [BMI] 45.0-49.9, adult (Z68.42) Active confirmed Problem Nocturnal enuresis (7271832) Urinary incontinence, nocturnal enuresis (N39.44) Active confirmed Problem Pain of right knee joint (finding) (162507866148045) Pain, joint, knee, right (M25.561) Active confirmed Vital Signs Heart Rate 66 /min 03/10/2025 Blood pressure diastolic 70 mm Hg 03/10/2025 Height 65 in 03/10/2025 Blood pressure systolic 126 mm Hg 03/10/2025 Weight 280.6 lbs 03/10/2025 BMI 46.69 kg/m2 03/10/2025 Encounters Encounter Location Date Provider Diagnosis A[facility]amon[facility] [address] [facility] [address] [place] [id number] 04/22/2024 Va Nieves Acute otitis media w ith effusion of left ear H65.192 ; Non-recurrent acute serous otitis media of right ear H65.01 ; ROSE positive R76.8 ; Depression with anxiety F41.8 ; Hypothyroidism (acquired) E03.9 ; Essential hypertension I10 ; Mixed hyperlipidemia E78.2 ; Hot flashes R23.2 and Vitamin D deficiency E55.9 [facility] [address] [place], [place] [id number] 06/04/2024 Va Nieves Morbid (severe) obes ity due to excess calories E66.01 ; Body mass index [BMI] 45.0-49.9, adult Z68.42 ; Psoriatic arthritis L40.50 ; Monet's thyroiditis E06.3 and Essential hypertension I10 [facility] [address] [place], [place] [id number] 07/23/2024 Va Palomaresluh COVID-19 U07.1 ; Rig ht knee pain, unspecified chronicity M25.561 and Acute otitis media with effusion of left ear H65.192 [facility] [address] [place], [place] [id number] 09/24/2024 Va Nieves Depression with anxi ety F41.8 [facility] [address] [place], [place] [id number] 11/06/2024 Va Nieves Strep pharyngitis J0 2.0 [facility] [address] [place], [place] [id number] 03/03/2025 Vasrinivas Nieves Chronic constipation K59.09 [facility] [address] [place], [place] [id number] 03/10/2025 Vasrinivas Nieves Mixed hyperlipidemia E78.2 ; Depression with anxiety F41.8 ; Chronic constipation K59.09 ; Essential hypertension I10 ; Vitamin D deficiency E55.9 ; Vitamin B12 deficiency E53.8 and Hypothyroidism (acquired) E03.9 [facility] [address] [place], [place] [id number] 04/23/2024 Va [facility]aniluh [facility] [address] [place], [place] [id number] 07/30/2024 Shital Bella Morbid (severe) obes ity due to excess calories E66.01 [facility] [address] [place], [place] [id number] 07/30/2024 Va Lizbeth Pain, joint, knee, r ight M25.561 and Acute pain of right knee M25.561 [facility] [address] [place], [place] [id number] 08/05/2024 Shital Bella [facility] [address] [place], [place] [id number] 08/20/2024 Shital Bella Hypothyroidism (acquired) E03.9 [facility] [address] [place], [place] [id number] 10/09/2024 Vasrinivas Nieves [facility] [address] [place], [place] [id number] 03/04/2025 Shital Bella [facility] [address] [place], [place] [id number] 03/05/2025 Va Nieves [facility] [address] [place], [place] [id number] 03/11/2025 Va Crowdy [facility] [address] [place] [id number] 03/22/2025 Va Crowdy [facility] [address] [place], [place] [id number] 03/22/2025 Shital Bella Encounter for screen ing for malignant neoplasm of breast Z12.31 [facility] [address] [place], [place] [id number] 03/23/2025 Shital Bella Assessments Encounter Date Diagnosis (ICD Code) Assessment Notes Treatment Notes Treatment Clinical Notes Section Notes 04/22/2024 Acute otitis media with effusion of left ear (ICD-10 - H65.192) 04/22/2024 Non-recurrent acute serous otitis media of right ear (ICD-10 - H65.01) 06/04/2024 Morbid (severe) obesity due to excess calories (ICD-10 - E66.01) 07/23/2024 Right knee pain, unspecified chronicity (ICD-10 [...] at home. Will also start on linzess. 06/04/2024 Body mass index [BMI] 45.0-49.9, adult (ICD-10 - Z68.42) 03/10/2025 Depression with anxiety (ICD-10 - F41.8) 03/10/2025 Mixed hyperlipidemia (ICD-10 - E78.2) 03/22/2025 Encounter for screening for malignant neoplasm of breast (ICD-10 - Z12.31) 03/10/2025 Chronic constipation (ICD-10 - K59.09) Will give more samples of linzess while awaiting approval. Will get x-rays. She did have a few days of diarrhea. 04/22/2024 ROSE positive (ICD-10 - R76.8) 07/23/2024 Acute otitis media with effusion of left ear (ICD-10 - H65.192) 06/04/2024 Psoriatic arthritis (ICD-10 - L40.50) 06/04/2024 Monet's thyroiditis (ICD-10 - E06.3) 04/22/2024 Depression with anxiety (ICD-10 - F41.8) 03/10/2025 Essential hypertension (ICD-10 - I10) 03/10/2025 [...] Shoulder, left, without contrast 0 12/12/2022 Mammogram 03/22/2025 Insurance Providers Payer Name Payer Address Payer Phone Subscriber Number Group Number Insured Name Patient Relationship to Insured Coverage Start Date Coverage End Date [facility] [address] [place] [address] [id number] November Self - patient is the insured [...] - Nerve 04/2019 Hospitalization History Reason Date(Month/Year) [facility] ER - Asthma 06/30/2019
== END 2025-04-08 23:59 | disposition home or self-care (01) ==
LOC: RAD 14:13
PROVIDERS: PCP Physician Assistant; Visit Provider Family Medicine
DX: Z12.31 Encounter for screening mammogram for malignant neoplasm of breast (principal); R92.323 Mammographic fibroglandular density, bilateral breasts
CPT/HCPCS: 77063; 77067

== ENCOUNTER 2025-06-16 07:40 | Day surgery (SDC) | payer BC, SELFPAY ==
--- NOTE | 2025-06-10 16:02 | EXP.HP ---
History of Present Illness *Admission Date: 06/16/25 *History of present illness: Mrs. Guardado is a 54-year-old female who is here for screening colonoscopy. The patient's last colonoscopy was 10 years ago and she reports that polyps were removed. The patient does have some chronic constipation and has failed multiple laxatives. She does get some bloating and nausea. She reports no rectal bleeding, weight loss or family history of colon cancer. The examination is deemed medically necessary for screening colonoscopy. The patient has been seen, interviewed and examined prior to the procedure by both myself and the anesthesia provider. [facility] Disclaimer: The information contained in this section may have been updated after the patient was seen, as this information can be updated by other users. Medical History Hypothyroid Chronic migraine without aura Chronic lower back pain JEAN CLAUDE (obstructive sleep apnea) Surgical History Hx of hysterectomy Hx of section History of arthroplasty of left ankle History of carpal tunnel surgery History of ear surgery Family History Other Cancer Diabetes Heart attack Social History Smoking Status: Former smoker tobacco type: e-cigarettes second hand exposure: No alcohol intake: never counseling provided: none substance use type: denies use current occupational status: disabled Travel in the last 8 weeks?: None household members: spouse and children housing: house 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 current occupational exposures/hazards: No caffeine: Yes Have you lived/traveled outside [place] in past 30 days?: No Contact w/someone who lives/traveled outside US past 30 days?: No Exposure to someone with infectious disease in past 14 days?: No Do you have a fever (greater than 100.4 F or 38 C)?: No Have you tested positive for COVID-19?: No Exposed to someone with COVID-19 in past 14 days?: No Do you have a sore throat?: No Do you have a cough?: No Do you have any weakness?: No Are you experiencing any nausea/vomitting?: No Do you have any diarrhea?: No Are you experiencing any unusual bleeding?: No Do you have any muscle aches/pain?: No Do you have any abdominal pain?: No Are you experiencing loss of taste or smell?: No Other Medical History Have you received the Flu Vaccine for this season: No Have you received the Pneumonia Vaccine: No Review of Systems Review of Systems Review of systems (narrative): Negative *Cardiovascular Comments: Negative *Gastrointestinal Comments: Negative *Genitourinary Comments: Negative *Musculoskeletal Comments: Negative *Neurologic Comments: Negative Meds Home Medications and Allergies Home Medications ?Medication ?Instructions ?Recorded ?Confirmed ?Type lisinopril 5 mg tablet 5 mg PO DAILY 11/01/20 06/16/25 History mecobalamin (vitamin B12) 1,000 1,000 mcg PO DAILY 09/26/21 06/16/25 History mcg chewable tablet (B12 Active) levothyroxine 50 mcg tablet 75 mcg PO DAILY 05/29/22 06/16/25 History (Synthroid) paroxetine HCl 10 mg tablet (Paxil) 20 mg PO DAILY 12/27/22 06/16/25 History atorvastatin 10 mg tablet 10 mg PO DAILY 11/11/23 06/16/25 History bupropion HCl 75 mg tablet 100 mg PO BID 11/11/23 06/16/25 History atogepant 60 mg tablet (Qulipta) 60 mg PO DAILY #30 tabs 09/23/24 06/16/25 Rx ubrogepant 100 mg tablet (Ubrelvy) 100 mg PO ONCE PRN migraine 09/23/24 06/16/25 Rx headache #10 tabs cholecalciferol (vitamin D3) 125 125 mcg PO DAILY 03/16/25 06/16/25 History mcg (5,000 unit) capsule folic acid 1 mg tablet 2 mg PO DAILY 03/16/25 06/16/25 History guselkumab 100 mg/mL subcutaneous 100 mg SQ Q4W 03/16/25 06/16/25 History pen injector (Tremfya Pen) sodium,potassium,mag sulfates 17.5 See Rx Instructions PO .COMPLEX 06/03/25 06/11/25 Rx gram-3.13 gram-1.6 gram oral soln #354 mL (Suprep Bowel Prep Kit) New Prescriptions to Start Prescriptions: Allergies Allergy/AdvReac Type Severity Reaction Status Date / Time meloxicam Allergy Mild Rash Verified 06/16/25 08:11 Exam *Routine HEENT Exam Head: Present normocephalic Eye: Present EOMI and PERRL ENT: Present mucous membranes moist *Routine Neck Exam Neck: Present supple *Routine Respiratory Exam Respiratory: Present CTA bilaterally *Routine Cardiovascular Exam Cardiovascular: Present RRR *Routine Abdominal Exam Abdominal: Present soft and normoactive bowel sounds; Absent tenderness *Routine Rectal Exam Rectal:: deferred *Routine Genitalia Exam Genitalia:: deferred *Routine Extremities Exam Extremities: Absent cyanosis, clubbing or edema *Routine Skin Exam Skin: Present warm; Absent rash *Routine Neurological Exam Neurological: Present alert and oriented X3 Assessment and Plan *Assessment and plan (1) History of colon polyps: Status: Acute Category: Medical Code(s): Z86.0100 - Personal history of colon polyps, unspecified (2) Screening for colon cancer: Status: Acute Category: Medical Code(s): Z12.11 - Encounter for screening for malignant neoplasm of colon Plan A/P: 1. History of colon polyps and last colonoscopy was 10 years ago is the preprocedural diagnosis. The patient will be anesthetized/sedated using MAC sedation. The patient has been seen and examined. Cardiac and lung assessment prior to the examination is stable. Proceed with planned screening colonoscopy.
[2025-06-11 13:02] VITALS: BMI 44.5
--- NOTE | 2025-06-16 06:27 | HMH.PROCNOTE ---
[facility] Procedure Note Date: 06/16/25 Time: : Procedure Note:: Colonoscopy Procedure Report: Colonoscopy with cold snare polypectomy Endoscopist: Shant Huggins II, MD Referring physician: Stephanie Nieves PA-C Date of Procedure: June 16, 2025 Equipment: Olympus [id number] adult colonoscope Sedation: MAC sedation Indication: Mrs. Guardado is a 54-year-old female who is here for screening colonoscopy. The patient's last colonoscopy was 10 years ago and she reports that polyps were removed. The patient does have some chronic constipation and has failed multiple laxatives. She has been on Linzess but still has difficulty with her bowels with incomplete defecation. She does get some bloating and nausea. She reports no rectal bleeding, weight loss or family history of colon cancer. The examination is deemed medically necessary for screening colonoscopy. Procedure: Prior to the procedure, a history and physical exam was performed, and patient's medications and allergies were reviewed. The risks, benefits and alternatives of the sedation and procedure were discussed with the patient. All questions were answered and informed consent was obtained. The patient was brought to the procedure room. Patient identification and proposed procedure were verified by the physician and the nurse. The patient was placed in a left lateral decubitus position and the scope was passed under direct vision. Throughout the procedure, the patient's blood pressure, pulse, and oxygen saturations were monitored continuously. The colonoscopy was accomplished without difficulty. The patient tolerated the procedure well. Findings: On digital rectal examination there was normal rectal tone. There were no external hemorrhoids. There was a small anterior rectocele. The colonoscope was introduced through the anal canal to the rectum and advanced to the cecum. The ileocecal valve and appendiceal orifice were identified. The scope was advanced a short distance into the ileum which appeared grossly normal. The scope was then withdrawn into the colon. There were 3 diminutive polyps (transverse x 1 (6 mm), descending x 1 (4 mm) and sigmoid x 1 (4 mm)). These were all removed via cold snare polypectomy. The remaining cecum, ascending, transverse, descending, sigmoid and rectum were grossly normal. There were no other mucosal abnormalities identified. Upon retroflexion within the rectum there were grade 1-2 internal hemorrhoids. The preparation was excellent throughout with Hendrix Preparation Score of 9. The cecal time was 12 minutes. Impression: 1. Diminutive colonic polyps x 3 Plan: I will follow-up the polyp histology and recommend repeat screening/surveillance colonoscopy again in 5 to 7 years based upon the pathology. The patient does have outlet dysfunction constipation and I will recommend pelvic floor physical therapy.
[2025-06-16 08:14] VITALS: BP 151/68; PULSE 92; RESP 20; TEMP 36.2; O2SAT 98
[2025-06-16] MEDS: LACTATED RINGERS 1000ML 1,000 ML 50 ML IV (08:26)
--- NOTE | 2025-06-16 08:50 | P.PNANES_ITS ---
[facility] Disclaimer: The information contained in this section may have been updated after the patient was seen, as this information can be updated by other users. Medical History Hypothyroid Chronic migraine without aura Chronic lower back pain JEAN CLAUDE (obstructive sleep apnea) Surgical History Hx of hysterectomy Hx of section History of arthroplasty of left ankle History of carpal tunnel surgery History of ear surgery Family History Other Cancer Diabetes Heart attack Social History Smoking Status: Former smoker tobacco type: e-cigarettes second hand exposure: No alcohol intake: never counseling provided: none substance use type: denies use current occupational status: disabled Travel in the last 8 weeks?: None household members: spouse and children housing: house 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 current occupational exposures/hazards: No caffeine: Yes Have you lived/traveled outside [place] in past 30 days?: No Contact w/someone who lives/traveled outside [place] past 30 days?: No Exposure to someone with infectious disease in past 14 days?: No Do you have a fever (greater than 100.4 F or 38 C)?: No Have you tested positive for COVID-19?: No Exposed to someone with COVID-19 in past 14 days?: No Do you have a sore throat?: No Do you have a cough?: No Do you have any weakness?: No Are you experiencing any nausea/vomitting?: No Do you have any diarrhea?: No Are you experiencing any unusual bleeding?: No Do you have any muscle aches/pain?: No Do you have any abdominal pain?: No Are you experiencing loss of taste or smell?: No [facility] Anesthesia Checklist Patient Identification Patient Identification: Arm Band Structural Data Admitted From: Home Planned Operative Procedure/s: Colonoscopy Consent for Planned Operative Procedure(s) Verified: Yes Verified Documents: Surgical Consent and History and Physical NPO Status Verified Time NPO: 04:45 (finished prep) Additional verifications Anesthesia Reactions: No Hx Blood Transfusions: No Blood Transfusion Reaction: No Airway Assessment Mallampati Score:: Class II C-Spine Mobility Assessed: Yes TMJ Mobility Assessed: Yes Dentition: Edentulous Neurological Assessment Level of Consciousness: Awake, Alert and Appropriate Anesthesia Plan Anesthesia Risk discussed: Yes Anesthesia Plan: Verified ASA Class: III Anesthesia Type: MAC
[2025-06-16 09:32] VITALS: BP 101/69; PULSE 98; RESP 16; TEMP 36.3; O2SAT 97
[2025-06-16 09:42] VITALS: BP 110/73; PULSE 87; RESP 18; TEMP 36.3; O2SAT 100
[2025-06-16 09:52] VITALS: BP 116/60; PULSE 87; RESP 18; TEMP 36.3; O2SAT 100
[2025-06-16 10:02] VITALS: BP 128/82; PULSE 86; RESP 18; TEMP 36.3; O2SAT 100
== END 2025-06-16 10:02 | disposition home or self-care (01) ==
PROVIDERS: PCP Physician Assistant; Visit Provider Internal Medicine Gastroenterology
PROC: 0DJD8ZZ Inspection of Lower Intestinal Tract, Via Natural or Artificial Opening Endoscopic (ICD-10-PCS; CPT 45378; principal; 2025-06-16 09:00)
DX: Z12.11 Encounter for screening for malignant neoplasm of colon (principal); D12.3 Benign neoplasm of transverse colon; D12.4 Benign neoplasm of descending colon; K63.5 Polyp of colon; N81.6 Rectocele; K64.0 First degree hemorrhoids; K64.1 Second degree hemorrhoids; G43.709 Chronic migraine without aura, not intractable, without status migrainosus; K59.09 Other constipation; Z87.891 Personal history of nicotine dependence; Z88.6 Allergy status to analgesic agent; Z86.0100 Personal history of colon polyps, unspecified
CPT/HCPCS: 45385; J2003; J2704; J7120